=== PATIENT | female | born 1955 | race Caucasian/White ===

== ENCOUNTER → 2018-04-16 07:57 | Outpatient (CLI) | payer MEDICARE, SELFPAY ==
[2018-04-16 09:04] LABS: Absolute Lymphocyte Count 1.58 X10^3/ul (0.83-4.51); Absolute Neutrophil Count 2.4 X10^3/uL (2.0-7.7); Basophil# 0.03 X10^3/uL; Basophil% 0.6 % (0-1); Eosinophil# 0.16 X10^3/uL; Eosinophils% 3.4 % (0-5); Hematocrit 43.2 % (37-47); Hemoglobin 14.7 g/dl (12.0-15.0); Lymphocyte # 1.58 X10^3/ul (4.0); Lymphocyte % 33.3 % (19-41); Mean Corpuscular Hgb 32.5 pg (27.0-32.0); Mean Corpuscular Volume 95.6 fL (81-99); Mean Platelet Vol. 9.2 fl (6.2-12.0); Monocyte# 0.53 X10^3/uL; Monocyte% 11.2 % (0-10); Neutrophil # 2.43 X10^3/uL (2.7-7.7); Neutrophil % 51.3 % (47-70); Platelet Count 232 K/mm3 (150-450); RBC Distribution Width CV 11.9 % (11.6-14.6); RBC Distribution Width SD 40.6 fl (35.1-43.9); Red Blood Count 4.52 M/mm3 (4.2-5.4); White Blood Count 4.7 K/mm3 (4.4-11.0)
[2018-04-16 09:06] LABS: POSITIVE COUNT NO; POSITIVE DIFFERENTIAL NO; POSITIVE MORPHOLOGY NO
[2018-04-16 09:36] LABS: AST(SGOT) 18 U/L (15-37); Alanine Aminotransfer ALT/SGPT 37 U/L (13-56); Albumin, Serum 3.5 g/dL (3.2-5.0); Alkaline Phosphatase 61 U/L (45-117); Anion Gap 8 (5-15); BUN 11 mg/dL (7-18); BUN/Creat Ratio 17.2 RATIO (10-20); Calcium,Total 8.1 mg/dL (8.5-10.1); Chloride 98 mmol/L (98-107); Cholesterol 174 mg/dL (200); Creatinine, Serum 0.64 mg/dL (0.55-1.02); EST Glomerular Filtration Rate 99 mL/min (>60); Est Glom Filt Rate - Afr Amer 120 mL/min (>60); Globulin 3.5 g/dL (2.2-4.2); Glucose 103 mg/dL (74-106); High Density Lipoprotein 58 mg/dL; Potassium 3.9 mmol/L (3.5-5.1); Sodium Level 135 mmol/L (136-145); Thyroid Stim Hormone (TSH) 2.89 uIU/mL (0.358-3.74); Triglycerides 195 mg/dL; Very Low Density Lipoprotein 39 mg/dL (5-40)
--- OUTSIDE RECORDS SUMMARY | 2018-06-10 18:59 | XMS RPT_ITS ---
:1955 Author Organization OH[facility] Care Team Providers Name Role Phone Lb Stevens Attending Unavailable Lb Stevens Referring Unavailable Lb Stevens Primary Care Unavailable EMELY BARTHOLOMEW (ASUNCION) Attending Unavailable JUAN A RANDOLPH Referring Unavailable ALEXJUAN A BROWN Attending Unavailable JUAN A RANDOLPH Referring Unavailable SLY BREAUX Attending Unavailable SLY BREAUX Attending Unavailable SLY BREAUX Attending Unavailable SLY BREAUX Attending Unavailable PROBLEMS PROBLEMS DATE TYPE CONDITION / CODE ATTENDING STATUS SOURCE 04/25/2018 Active Localization-related NA Active [place] (focal) (partial) 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 The treating physician must determine appropriate target levels/dosing based on the specific clinical situation. Performed By: #### CARBAM, CARBFR, LEVET #### [facility] [address] [place], [place] [address] CARBAMAZEPINE, FREE Collected: 04/25/2018 Status: F Source: [place] 4:34 PM [facility] REPOSITORY TYPE CODE TESTS RESULT OUT OF REFERENCE UNITS RANGE LAB CARBFR 0.8-2.4 ug/mL 1.3 Carbamazepin e, Free Result Comment: Reference ranges and high/low indicator flags are provided as general guidelines only. The treating physician must determine appropriate target levels/dosing based on the specific clinic al situation. This test was developed and its performance characteristics determined by [facility] and [facility] [place] ([facility]). It has not been cleared or approved by the FDA. [facility] is regulated under CLIA as qualified to perform high-complexity testing. This test is used for clinical purposes. It should not be regarded as investigational or for research. Performed By: #### CARBAM, CARBFR, LEVET #### [facility] [address] [place], [place] [address] LEVETIRACETAM Collected: 04/25/2018 Status: F Source: [place] 4:34 [facility] REPOSITORY TYPE CODE TESTS RESULT OUT OF REFERENCE UNITS RANGE LAB LEVETI 12.0-46.0 ug/mL Levetiracetam 22.0 Result Comment: This test is not suitable for patients receiving treatment with the drug brivaracetam (Briviact). The drug causes an interference that may lead to falsely elevated levetiracetam results. Reference ranges and high/low indicator flags are provided as general guidelines only. The treating physician must determine appropriate target levels/dosing based on the specific clinical situation. This test was developed and its performance characteristics determined by [facility] Pathology and Laboratory [facility] [place] ([facility]). It has not been cleared or approved by the FDA. [facility] is regulated under CLIA as qualified to perform high-complexity testing. This test is used for clinical purposes. It should not be regarded as investigational or for research. Performed By: #### CARBAM, CARBFR, LEVET #### [facility] [address] [place], [place] [address] PROGRESS Observed: 04/25/2018 Status: COMPLETED Source: [place] 3:22 PM [facility] REPOSITORY HNO ID: [id number] Author: Juan A Randolph V Service: (none) Author Type: Physician Type: Progress Notes Filed: 05/02/2018 11:21 PM Note Text: [facility] [place] ? Patient Name: Cassy Gomez Date of : 1955 ? ? EPILEPSY CLINIC NOTE - RETURN VISIT DATE: 04/25/2018 [CBZ XR (100) 200 BID, LEV (750) 1500 BID JUJU ([place]): 08/03/17 [CBZ XR (100) 200 BID, LEV (750) 1500 BID, Clobazam 10 BID] IOV: 12/22/2010 [CBZ XR 800 BID, LEV 1500 mg BID] [id number] (Dr. Thornton) ? HPI Ms. Cassy Gomez returns for follow-up in relationship to her seizure disorder. She comes to this appointment accompanied by her Maximino. She is an established pt of Dr. Randolph who was last seen by Emely on 08/03/2017. She's now s/p 4.5cm R EILEEN on 07/17/2016. Interval Hx: She reports no known SZS; and no auras. No SZS have been observed by or other family members. She has not driven in many many years and is not interested in driving at the present time. Not driven since 1974. No ER visits, hospitalizations or changes in health or social status since the last visit. They bought a new house and live in [place] now ? Memory/Cognition: Stable no issues. She feels since she has been off medication, she is starting to do better. ? Sleep: Good from 10 pm to 6 am Mood: Stable. No issues KLP wean: 1 mg BID x 1 month Then 0.5/1 x 1 month Then 0.5 mg BID since mid september Decreased to 0.5 mg QHS on 01/26/18 Discontinued KLP at the end of feb/beginning of March. ? CURRENT AEDs 7:30 AM and 7:30 PM not missing doses CBZ XR (100) 200 BID LEV (750) 1500 BID ? ? OP NOTE 07/27/2016 (Dr. Cali) Right temporal lobectomy with resection of mesial temporal structures. ... undermined the temporalis muscle and performed right ?frontotemporal craniotomy flap and then opened the dura and I then resected the?right lateral temporal lobe, back to 4.5 cm posterior to the anterior aspect of the ?middle cranial fossa. The lateral horn was entered and the amygdala and the hippocampus was resected as well. These specimens were sent to Pathology. ? SURGICAL PATH (Dr. Adan) 1. 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 Amygdala, excision (B) - Gliosis - Focal perivascular chronic inflammation 3. Hippocampus, excision (C) - Focal neuronal loss and gliosis consistent with hippocampal sclerosis COMMENT: Histologic sections in part A show mild focal cortical architectural disorganization principally in a horizontal orientation. ? MOST RECENT TEST RESULTS LONG EEG January 19, 2017 A/S (Dr. Blank) ? 1 ? ?Intermittent Slow, Regional right temporal ? 2 ? ?Asymmetry, Increased Beta right Impression: This EEG shows findings consistent with the prior right temporal lobe resection. Also seen were sharp transients intermixed with the right frontotemporal breach rhythm, and with rhythmic right midtemporal theta activity on the left, of uncertain significance. No clear epileptiform discharges or EEG seizures were recorded. Post op MRI: 03/02/17: IMPRESSION: Interval postoperative changes of right anterior temporal lobectomy. Mild nonspecific, likely chronic microvascular ischemic white matter changes. ?Cerebellar volume loss. ? ? Current Outpatient Prescriptions on File Prior to Visit: clonazePAM (KLONOPIN) 1 mg tablet Take 0.5 tablets by mouth daily at bedtime for 30 days. Currently weaning. Take 1/2 tablet twice a day. levETIRAcetam (KEPPRA) 750 mg tablet Take 2 tablets by mouth twice daily. citalopram hydrobromide (CELEXA) 10 mg tablet Take 1 tablet by mouth every morning. ranitidine (ZANTAC) 150 mg tablet Take 150 mg by mouth twice daily. LINZESS 145 mcg cap Take 145 mcg by mouth once daily. L. gasseri-B. bifidum-B longum (Hit the Mark) 1.5 billion cell cap Take by mouth. carBAMazepine XR (TEGRETOL XR) 100 mg 12 hr tablet Take 2 tablets by mouth twice daily. cloBAZam (ONFI) 10 mg tab tablet Take by mouth. Follow printed instructions to gradually reduce the dose to one pill (10mg) twice a day senna (SENOKOT) 8.6 mg tab Take 1 tablet by mouth twice daily. (Patient not taking: Reported on 01/19/2017) lisinopril-hydrochlorothiazide (PRINZIDE,ZESTORETIC) 10-12.5 mg per tablet Take 1 tablet by mouth once daily. Nc-U6-yoe-dseu-tfx-ykkw-boron (CALTRATE 600+D PLUS MINERALS) 600 mg calcium- 800 unit-40 mg chew Take 1 tablet by mouth once daily. atorvastatin (LIPITOR) 20 mg tablet Take 20 mg by mouth once daily. alendronate (FOSAMAX) 70 mg tablet Take 70 mg by mouth once each week. Wednesday COMPOUNDED PRESCRIPTION VNS (2008) Currently turned off No current facility-administered medications on file prior to visit. ?The patient's side effects to the current medications are None Denies missing any doses but may not take them at the same time each day. ? ======= ? PRIOR ANTICONVULSANT HISTORY: LAST UPDATED January 19, 2017 PHT, PhB, VPA, ESX, GBP, LTG, TPM, TGB and benzos KLN (had been tried prior to her visit here in 1999) ? CBZ IR up to 500-500 in the past [asymptomatic hyponatremia on BMP around 2013 leading to small dose decrease by total of 200/d] CBZ XR up to 800 BID when first seen by me 12/2010 [SZ worsening w attempt to decrease dose from 400 BID to 200 BID under my care] LEV up to 1500 BID currently same dose when first seen 12/2010 (no AEs at 0709-3953 per previous records) Clobazam started 10/2011 at 10 BID increased to 15 BID around 10/2015 and 20 BID 03/2016 (concern of constipation); trial to decrease to 10 BID 01/2017. LOST to F/U 07/2012 to 10/2015 after sustained SZ freedom with addition of Clobazam. Onfi discontinued in 07/2017 because of cost and switched to KLP ? ? PGB tried between 6678-4023 ?started (outside [facility]) AEs when she reached 100-100 (?type of AEs) LCM tried between 0290-4320 ?started (outside [facility]) not tolerated (?type of AEs - no details) ? Component Latest Ref Rng AND Units 11/10/1999 11/15/1999 11/16/1999 11/17/1999 02/19/2000 09/09/2000 12/14/2000 05/30/2001 02/15/2003 02/16/2011 07/25/2015 11/27/2015 03/25/2016 01/19/2017 Carbamazepine 8.0 - 12.0 ug/mL 6.8 (A) 7.6 (A) 6.7 (A) 6.3 (A) 9.5 7.1 (A) 7.5 (A) 7.0 (A) 12.8 (A) 9.4 6.9 6.0 4.5 (L) 3.8 (L) DATE LAST TAKEN YESTERDAY TIME LAST DOSE 2027-4214 Carbamazepine, Free 1.6 - 2.4 ug/mL 1.8 3.0 (H) 1.2 (L) 1.1 (L) Clobazam 30 - 300 ng/mL 382 (H) 174 Desmethylclobazam 300 - 3,000 ng/mL 1,640 1,534 Levetiracetam 5.0 - 45.0 ug/mL 27.1 17.3 42.3 12.3 ? VNS implantation in 10/2008 OFF since 02/2010, switched off several months later as she was unable to tolerate effective settings stim- related AEs choking, unable to breathe, anxiety, indigestion per outside notes (up to 1.25mAmp; 250mcsec; 30Hz and including a trial of rapid cycling). Device was NOT removed at the time of the R EILEEN in 07/2016. ?? She reports reactions?to many AEDs, however, she is not sure which medication caused which reaction. ? Citalopram started 12/2010 at 10 QD; Increased to 20 QD in 02/2011 or more likely 10/2011; SELF D/C'd between 6599-6713 Restarted at 10 QD in 02/2016 ? ?Social History Marital status: Spouse name: Years of education: Number of children: Social History Main Topics Smoking status: Never Smoker Smokeless tobacco: Never Used Alcohol use: No PAST MEDICAL HISTORY Diagnosis Date - Depression - HTN (hypertension) - Localization-related (focal) (partial) epilepsy and epileptic syndromes with simple partial seizures, with intractable epilepsy - OA (osteoarthritis) - MAGDALENO (obstructive sleep apnea) - Port - wine birthmark right restorationist - Tinnitus of left ear ? REVIEW OF SYSTEMS: CONST:no weight change; no lightheadedness; no fevers, chills, or night sweats. Occasional headaches. EYES: no double vision; no blurred vision ENT: no change in hearing; no trouble swallowing NEURO: no focal weakness, no sensory loss CARD: no chest pain or palpitations, no leg edema RESP: no shortness of breath or cough : no urinary urgency, frequency, or hematuria GI: no abdominal pain or change in bowel habits MUSC: none PSYCH: no mood changes HEME: no bruising, bleeding, or swollen glands. All other organ systems are negative. ? Office Neurological Examination: BP 150/76 (BP Site: Left Arm, BP Position: Sitting, BP Cuff Size: Large Adult) Pulse 75 Ht 167.6 cm (5' 6) BMI 28.86 kg/m? On exam, no signs of toxicity. Appearance: slight facial acne Mental State: Alert, oriented, intact speech and knowledge Cranial Nerves: Normal eye movements, no nystagmus. Facial movements normal Motor: Normal movements Coordination: no tremors, normal Ddvxzq-Cpty-Oqiwnf, Rapid Alternating Motion Gait: Normal posture, Romberg negative, tandem normal ? ? IMPRESSION: 63 yr old female with pmh of Temporal lobe epilepsy of adult onset (at 24yo within 6 months after 1st?) RIGHT TLE or possibly bitemporal epilepsy based on interictal and ictal EEGs (VEEGs x3 here in 1999;?2010 and 2016). MRI/PET in 2010 and 2015-7 did show predominant involvement of the RIGHT (presumably nondominant?TL) and she's now SZ-free following a R 4.5cm EILEEN on 07/17/2016. ? 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 VNS implantation in 10/2008, OFF since 02/2010 (did NOT tolerate effective settings due to stim-related AEs); device remains in place post-EILEEN 2. RIGHT 4.5cm EILEEN (07/17/2016 Dr. Cali) ? PLAN: ?-Will repeat LEV and CBZ levels today -off KLP - Continue LEV 1500 BID unchanged for now. She is interested in reducing the number of keppra tablets she takes, this can be the next step if possible. - Start reducing CBZ XR 200 BID. Will give a taper schedule as follows Week 1-6: CBZ XR 100 mg (1 tablet) in the morning and 200 mg(2 tablets) in the evening Week 7-12: CBZ XR 100 mg (1 tablet) in the morning and 100 mg (1 tablet) in the evening Week 13-18: CBZ XR 100 mg (1 tablet) at bedtime only. Week: 19: Discontinue - Plan to aim for LEV monotherapy down the road ? Risks, benefits, side effects, and alternatives to use of LEV, CBZ and KLP were discussed with the patient and her family who agreed with the plan as outlined above. . The patient will be scheduled for a return visit in 1 year or sooner if problems arise. Gely Cosby MD Epilepsy Fellow PGY5 04/25/2018 4:10 PM ? [facility] STAFF: TEACHING PHYSICIAN NOTE OF PERSONAL INVOLVEMENT IN CARE I have reviewed the history and physical examination obtained and documented by the fellow and I personally participated in the dias components. I personally interviewed and examined the patient and updated the fellows's history and ROS as necessary. I have re-performed and re-documented and/or edited the HPI, EXAM, and ASSESSMENT and PLAN based on my personal assessment of the patient. My additions are in italics. See fellow's note for further details. Physician viha-xu-iscq time was 25 minutes with > 50% devoted to counseling or co-ordination of care. Juan A Randolph MD, MPH [facility], Dept. of Neurology Section of Adult Epilepsy, [address] [address] CNOV Observed: 04/25/2018 Status: COMPLETED Source: [place] 3:00 PM [facility] REPOSITORY Office Visit ([id number]) ISHANCASSY ZAVALA ([id number]) 1955 F Date Time Provider Department 04/25/18 3:00 PM JUAN A RANDOLPH V [id number] During your visit today, we recorded the following information about you: Pulse Blood pressure Height 75/minute 150/76 1.676 m Juan A Randolph MD 05/02/2018 11:21 PM Signed [facility] [place] ? Patient Name: Cassy Gomez Date of : 1955 ? ? EPILEPSY CLINIC NOTE - RETURN VISIT DATE: 04/25/2018 [CBZ XR (100) 200 BID, LEV (750) 1500 BID JUJU ([place]): 08/03/17 [CBZ XR (100) 200 BID, LEV (750) 1500 BID, Clobazam 10 BID] IOV: 12/22/2010 [CBZ XR 800 BID, LEV 1500 mg BID] [id number] (Dr. Thornton) ? HPI Ms. Cassy Gomez returns for follow-up in relationship to her seizure disorder. She comes to this appointment accompanied by her Maximino. She is an established pt of Dr. Randolph who was last seen by Emely on 08/03/2017. She's now s/p 4.5cm R EILEEN on 07/17/2016. Interval Hx: She reports no known SZS; and no auras. No SZS have been observed by or other family members. She has not driven in many many years and is not interested in driving at the present time. Not driven since 1974. No ER visits, hospitalizations or changes in health or social status since the last visit. They bought a new house and live in [place] now ? Memory/Cognition: Stable no issues. She feels since she has been off medication, she is starting to do better. ? Sleep: Good from 10 pm to 6 am Mood: Stable. No issues KLP wean: 1 mg BID x 1 month Then 0.5/1 x 1 month Then 0.5 mg BID since september Decreased to 0.5 mg QHS on 01/26/18 Discontinued KLP at the end of feb/beginning of March. ? CURRENT AEDs 7:30 AM and 7:30 PM not missing doses CBZ XR (100) 200 BID LEV (750) 1500 BID ? ? OP NOTE 07/27/2016 (Dr. Cali) Right temporal lobectomy with resection of mesial temporal structures. ... undermined the temporalis muscle and performed right ?frontotemporal craniotomy flap and then opened the dura and I then resected the?right lateral temporal lobe, back to 4.5 cm posterior to the anterior aspect of the ?middle cranial fossa. The lateral horn was entered and the amygdala and the hippocampus was resected as well. These specimens were sent to Pathology. ? SURGICAL PATH (Dr. Adan) 1. 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 Amygdala, excision (B) - Gliosis - Focal perivascular chronic inflammation 3. Hippocampus, excision (C) - Focal neuronal loss and gliosis consistent with hippocampal sclerosis COMMENT: Histologic sections in part A show mild focal cortical architectural disorganization principally in a horizontal orientation. ? MOST RECENT TEST RESULTS LONG EEG January 19, 2017 A/S (Dr. Blank) ? 1 ? ?Intermittent Slow, Regional right temporal ? 2 ? ?Asymmetry, Increased Beta right Impression: This EEG shows findings consistent with the prior right temporal lobe resection. Also seen were sharp transients intermixed with the right frontotemporal breach rhythm, and with rhythmic right midtemporal theta activity on the left, of uncertain significance. No clear epileptiform discharges or EEG seizures were recorded. Post op MRI: 03/02/17: IMPRESSION: Interval postoperative changes of right anterior temporal lobectomy. Mild nonspecific, likely chronic microvascular ischemic white matter changes. ?Cerebellar volume loss. ? ? Current Outpatient Prescriptions on File Prior to Visit: clonazePAM (KLONOPIN) 1 mg tablet Take 0.5 tablets by mouth daily at bedtime for 30 days. Currently weaning. Take 1/2 tablet twice a day. levETIRAcetam (KEPPRA) 750 mg tablet Take 2 tablets by mouth twice daily. citalopram hydrobromide (CELEXA) 10 mg tablet Take 1 tablet by mouth every morning. ranitidine (ZANTAC) 150 mg tablet Take 150 mg by mouth twice daily. LINZESS 145 mcg cap Take 145 mcg by mouth once daily. L. gasseri-B. bifidum-B longum (Hit the Mark) 1.5 billion cell cap Take by mouth. carBAMazepine XR (TEGRETOL XR) 100 mg 12 hr tablet Take 2 tablets by mouth twice daily. cloBAZam (ONFI) 10 mg tab tablet Take by mouth. Follow printed instructions to gradually reduce the dose to one pill (10mg) twice a day senna (SENOKOT) 8.6 mg tab Take 1 tablet by mouth twice daily. (Patient not taking: Reported on 01/19/2017) lisinopril-hydrochlorothiazide (PRINZIDE,ZESTORETIC) 10-12.5 mg per tablet Take 1 tablet by mouth once daily. Jt-V1-qlp-xamh-ujp-dhkh-boron (CALTRATE 600+D PLUS MINERALS) 600 mg calcium- 800 unit-40 mg chew Take 1 tablet by mouth once daily. atorvastatin (LIPITOR) 20 mg tablet Take 20 mg by mouth once daily. alendronate (FOSAMAX) 70 mg tablet Take 70 mg by mouth once each week. Wednesday COMPOUNDED PRESCRIPTION VNS (2008) Currently turned off No current facility-administered medications on file prior to visit. ?The patient's side effects to the current medications are None Denies missing any doses but may not take them at the same time each day. ? - === ? PRIOR ANTICONVULSANT HISTORY: LAST UPDATED January 19, 2017 PHT, PhB, VPA, ESX, GBP, LTG, TPM, TGB and benzos KLN (had been tried prior to her visit here in 1999) ? CBZ IR up to 500-500 in the past [asymptomatic hyponatremia on BMP around 2013 leading to small dose decrease by total of 200/d] CBZ XR up to 800 BID when first seen by me 12/2010 [SZ worsening w attempt to decrease dose from 400 BID to 200 BID under my care] LEV up to 1500 BID currently same dose when first seen 12/2010 (no AEs at 1896-6894 per previous records) Clobazam started 10/2011 at 10 BID increased to 15 BID around 10/2015 and 20 BID 03/2016 (concern of constipation); trial to decrease to 10 BID 01/2017. LOST to F/U 07/2012 to 10/2015 after sustained SZ freedom with addition of Clobazam. Onfi discontinued in 07/2017 because of cost and switched to KLP ? ? PGB tried between 1779-7442 ?started (outside [facility]) AEs when she reached 100-100 (?type of AEs) LCM tried between 2032-7209 ?started (outside [facility]) not tolerated (?type of AEs - no details) ? Component Latest Ref Rng AND Units 11/10/1999 11/15/1999 11/16/1999 11/17/1999 02/19/2000 09/09/2000 12/14/2000 05/30/2001 02/15/2003 02/16/2011 07/25/2015 11/27/2015 03/25/2016 01/19/2017 Carbamazepine 8.0 - 12.0 ug/mL 6.8 (A) 7.6 (A) 6.7 (A) 6.3 (A) 9.5 7.1 (A) 7.5 (A) 7.0 (A) 12.8 (A) 9.4 6.9 6.0 4.5 (L) 3.8 (L) DATE LAST TAKEN YESTERDAY TIME LAST DOSE 5538-7922 Carbamazepine, Free 1.6 - 2.4 ug/mL 1.8 3.0 (H) 1.2 (L) 1.1 (L) Clobazam 30 - 300 ng/mL 382 (H) 174 Desmethylclobazam 300 - 3,000 ng/mL 1,640 1,534 Levetiracetam 5.0 - 45.0 ug/mL 27.1 17.3 42.3 12.3 ? VNS implantation in 10/2008 OFF since 02/2010, switched off several months later as she was unable to tolerate effective settings stim-related AEs choking, unable to breathe, anxiety, indigestion per outside notes (up to 1.25mAmp; 250mcsec; 30Hz and including a trial of rapid cycling). Device was NOT removed at the time of the R EILEEN in 07/2016. ?? She reports reactions?to many AEDs, however, she is not sure which medication caused which reaction. ? Citalopram started 12/2010 at 10 QD; Increased to 20 QD in 02/2011 or more likely 10/2011; SELF D/C'd between 8978-2031 Restarted at 10 QD in 02/2016 ? - ======== ?Social History Marital status: Spouse name: Years of education: Number of children: Social History Main Topics Smoking status: Never Smoker Smokeless tobacco: Never Used Alcohol use: No PAST MEDICAL HISTORY Diagnosis Date - Depression - HTN (hypertension) - Localization-related (focal) (partial) epilepsy and epileptic syndromes with simple partial seizures, with intractable epilepsy - OA (osteoarthritis) - MAGDALENO (obstructive sleep apnea) - Port - wine birthmark right restorationist - Tinnitus of left ear ? REVIEW OF SYSTEMS: CONST:no weight change; no lightheadedness; no fevers, chills, or night sweats. Occasional headaches. EYES: no double vision; no blurred vision ENT: no change in hearing; no trouble swallowing NEURO: no focal weakness, no sensory loss CARD: no chest pain or palpitations, no leg edema RESP: no shortness of breath or cough : no urinary urgency, frequency, or hematuria GI: no abdominal pain or change in bowel habits MUSC: none PSYCH: no mood changes HEME: no bruising, bleeding, or swollen glands. All other organ systems are negative. ? Office Neurological Examination: BP 150/76 (BP Site: Left Arm, BP Position: Sitting, BP Cuff Size: Large Adult) Pulse 75 Ht 167.6 cm (5' 6) BMI 28.86 kg/m? On exam, no signs of toxicity. Appearance: slight facial acne Mental State: Alert, oriented, intact speech and knowledge Cranial Nerves: Normal eye movements, no nystagmus. Facial movements normal Motor: Normal movements Coordination: no tremors, normal Ucsgzh-Bade-Prdoru, Rapid Alternating Motion Gait: Normal posture, Romberg negative, tandem normal ? ? IMPRESSION: 63 yr old female with pmh of Temporal lobe epilepsy of adult onset (at 24yo within 6 months after 1st?) RIGHT TLE or possibly bitemporal epilepsy based on interictal and ictal EEGs (VEEGs x3 here in 1999;?2010 and 2016). MRI/PET in 2010 and 2015-7 did show predominant involvement of the RIGHT (presumably nondominant?TL) and she's now SZ-free following a R 4.5cm EILEEN on 07/17/2016. ? 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 VNS implantation in 10/2008, OFF since 02/2010 (did NOT tolerate effective settings due to stim-related AEs); device remains in place post-EILEEN 2. RIGHT 4.5cm EILEEN (07/17/2016 Dr. Cali) ? PLAN: ?-Will repeat LEV and CBZ levels today -off KLP - Continue LEV 1500 BID unchanged for now. She is interested in reducing the number of keppra tablets she takes, this can be the next step if possible. - Start reducing CBZ XR 200 BID. Will give a taper schedule as follows Week 1-6: CBZ XR 100 mg (1 tablet) in the morning and 200 mg(2 tablets) in the evening Week 7-12: CBZ XR 100 mg (1 tablet) in the morning and 100 mg (1 tablet) in the evening Week 13-18: CBZ XR 100 mg (1 tablet) at bedtime only. Week: 19: Discontinue - Plan to aim for LEV monotherapy down the road ? Risks, benefits, side effects, and alternatives to use of LEV, CBZ and KLP were discussed with the patient and her family who agreed with the plan as outlined above. . The patient will be scheduled for a return visit in 1 year or sooner if problems arise. Gely Cosby MD Epilepsy Fellow PGY5 04/25/2018 4:10 PM ? [facility] STAFF: TEACHING PHYSICIAN NOTE OF PERSONAL INVOLVEMENT IN CARE I have reviewed the history and physical examination obtained and documented by the fellow and I personally participated in the dias components. I personally interviewed and examined the patient and updated the fellows's history and ROS as necessary. I have re-performed and re-documented and/or edited the HPI, EXAM, and ASSESSMENT and PLAN based on my personal assessment of the patient. My additions are in italics. See fellow's note for further details. Physician zhje-xz-jjjy time was 25 minutes with > 50% devoted to counseling or co-ordination of care. Juan A Randolph MD, MPH [facility], Dept. of Neurology Section of [place] Epilepsy, [place] [address] Gely Cosby MD 04/25/2018 4:17 PM Signed Start reducing Tegretol XR 200 BID. Will give a taper schedule as follows: Week 1-6 (1.5 months): CBZ XR 100 mg (1 tablet) in the morning and 200 mg(2 tablets) in the evening Week 7-12(1.5 months to 3 months): CBZ XR 100 mg (1 tablet) in the morning and 100 mg (1 tablet) in the evening Week 13-18 (3 months to 4.5 months): CBZ XR 100 mg (1 tablet) at bedtime only. 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] Mood disorder (HCC) [F39] History of febrile seizure [Z87.898] FH: epilepsy [Z82.0] S/P lobectomy of brain [Z90.89] MAGDALENO on CPAP [G47.33, Z99.89] Order(s):LEVETIRACETAM [SQLEVET] Order #: [id number] FUTURE CARBAM/TEGRETOL F [SQCARBFR] Order #: [id number] FUTURE CARBAMAZEPI/TEGRETOL [SQCARBAM] Order #: [id number] FUTURE levETIRAcetam (KEPPRA) 750 mg tabletTake 2 tablets by mouth twice daily.Disp: 360 tabletRfl: 11 carBAMazepine XR (TEGRETOL XR) 100 mg 12 hr tabletTake 2 tablets by mouth twice daily.Disp: 360 tabletRfl: 3 Prescriptions as of 04/25/2018 Sig: ALENDRONATE 70 MG TABLET Take 70 mg by mouth once each* ATORVASTATIN 20 MG TABLET Take 20 mg by mouth once mirta* CA 600 MG-D3 800 UNIT-MAGNES * Take 1 tablet by mouth once d* CARBAMAZEPINE ER 100 MG TABLE* Take 2 tablets by mouth twice* CITALOPRAM 10 MG TABLET Take 1 tablet by mouth every * LACTOBACILLS GASSERI-BIFIDOBA* Take by mouth. LEVETIRACETAM 750 MG TABLET Take 2 tablets by mouth twice* LISINOPRIL 10 MG-HYDROCHLOROT* Take 1 tablet by mouth once d* RANITIDINE 150 MG TABLET Take 150 mg by mouth twice da* CLOBAZAM 10 MG TABLET Take by mouth. 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] INVALID FOR* MAGDALENO on CPAP [G47.33, Z99.89] INVALID FOR* 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 Will give a taper schedule as follows: Week 1-6 (1.5 months): CBZ XR 100 mg (1 tablet) in the morning and 200 mg(2 tablets) in the evening Week 7-12(1.5 months to 3 months): CBZ XR 100 mg (1 tablet) in the morning and 100 mg (1 tablet) in the evening Week 13-18 (3 months to 4.5 months): CBZ XR 100 mg (1 tablet) at bedtime only. Week: 19: Discontinue -Call for an update in 6 months -Follow up in 1 year Prescriptions ordered this encounter Disp Refills Start End LEVETIRACETAM 750 MG TABLET 360 * 11 04/25/2018 Route: ORAL Sig: Take 2 tablets by mouth twice daily. CARBAMAZEPINE ER 100 MG TABLET,EXTEN* 360 * 3 04/25/2018 Route: ORAL Sig: Take 2 tablets by mouth twice daily. Medications Discontinued During This Encounter levETIRAcetam (KEPPRA) 750 mg tablet 360 * 2 09/22/2017 04/25/2018 Route: ORAL Sig: Take 2 tablets by mouth twice daily. Disc: Reason for discontinue is not on file. carBAMazepine XR (TEGRETOL XR) 100 m* 360 * 3 08/03/2017 04/25/2018 Route: ORAL Sig: Take 2 tablets by mouth twice daily. Disc: Reason for discontinue is not on file. Disposition: Return in about 1 year (around 04/25/2019). Follow-up and Disposition History Recorded Encounter Status:Closed by JUAN A RANDOLPH MD, V on 05/02/18 CBC W/DIFF, AUTOMATED Collected: 04/16/2018 Status: F Source: [place] 8:15 AM [facility] REPOSITORY TYPE CODE TESTS RESULT OUT OF RANGE REFERENCE UNITS LAB L100.1000 4.4-11.0 K/mm3 Normal WBC 4.7 LAB L100.1200 4.2-5.4 M/mm3 Normal RBC 4.52 LAB L100.1300 12.0-15.0 g/dl Normal HGB 14.7 LAB L100.1400 37-47 % Normal HCT 43.2 LAB L100.1500 81-99 fL Normal MCV 95.6 LAB L100.1600 27.0-32.0 pg High MCH 32.5 LAB L100.1700 32-36 g/gl Normal MCHC 34.0 LAB L100.1810 11.6-14.6 % Normal RDW CV 11.9 LAB L100.1820 35.1-43.9 fl Normal RDW SD 40.6 LAB L100.1900 150-450 K/mm3 Normal PLT 232 LAB L100.2000 6.2-12.0 fl Normal MPV 9.2 LAB L100.2100 47-70 % Normal NEUT% 51.3 LAB L100.2200 19-41 % Normal LY% 33.3 LAB L100.2300 0-10 % High MONO% 11.2 LAB L100.2400 0-5 % Normal EO% 3.4 LAB L100.2500 0-1 % Normal BASO% 0.6 LAB L100.2550 0.0-0.9 % Normal IM GRAN % 0.200 Result Comment: IG% - Immature Granulocytes (promyelocytes, myelocytes and metamyelocytes) > 1% indicates that a LEFT SHIFT is Present. LAB L100.2620 2.0-7.7 X10 3/uL Normal Absolute Neut 2.4 LAB L100.2720 0.83-4.51 X10 3/ul Normal Absolute Lymph 1.58 Performed By: #### L100.0100 #### [facility] [address] [place], [place], [address] COMPREHENSIVE METABOLIC Collected: 04/16/2018 Status: F Source: [place] 8:15 AM [facility] REPOSITORY TYPE CODE TESTS RESULT OUT OF RANGE REFERENCE UNITS LAB L501.0100 74-106 mg/dL Normal GLU 103 Result Comment: Fasting Glucose result from 100 to 125 mg/dL suggests IMPAIRED HOMEOSTASIS per A.D.A. criteria. Please note revised GLUCOSE reference range effective 2017. LAB L501.1000 7-18 mg/dL Normal BUN 11 LAB L501.1100 0.55-1.02 mg/dL Normal CREAT,SERUM 0.64 Result Comment: The validity of the calculated GFR AND GFRAA in patients over 70 years has not been determined. Clinical correlation is essential. LAB L501.1110 >60 mL/min Normal EST GFR 99 Result Comment: Non- GFR Calc LAB L501.1115 >60 mL/min Normal EST GFR - AA 120 Result Comment: GFR Calc LAB L501.1300 10-20 RATIO Normal BUN/CRE 17.2 LAB L501.1500 6.4-8.2 g/dL T Normal PROT 7.0 LAB L501.1800 3.2-5.0 g/dL Normal ALB 3.5 LAB L501.1950 2.2-4.2 g/dL Normal GLOB 3.5 LAB L501.2000 0.9-2.4 RATIO Normal A/G 1.0 LAB L501.2200 8.5-10.1 mg/dL Low CA 8.1 LAB L501.4100 15-37 U/L Normal AST 18 LAB L501.4305 45-117 U/L Normal ALK P 61 LAB L501.4405 13-56 U/L Normal ALT 37 LAB L501.4600 0.20-1.00 mg/dL T Normal BILI 0.30 LAB L501.5300 136-145 mmol/L Low NA 135 LAB L501.5600 3.5-5.1 mmol/L K Normal 3.9 LAB L501.5900 98-107 mmol/L CL Normal 98 LAB L501.6100 21.0-32.0 mmol/L Normal CO2 29.0 LAB L501.6200 5-15 Normal GAP 8 Performed By: #### L500.4050, L500.4100, L501.9520 #### [facility] [address] [place], [address] LIPID PROFILE Collected: 04/16/2018 Status: F Source: [place] 8:15 AM [facility] REPOSITORY TYPE CODE TESTS RESULT OUT OF RANGE REFERENCE UNITS LAB L501.4900 200 mg/dL Normal CHOL 174 Result Comment: <200 mg/dL Desirable 200-240 mg/dL Borderline >240 mg/dL High Risk LAB L501.5000 mg/dL Normal TRIG 195 Result Comment: The drugs N-Acetylcysteine and Metamizole may falsely depress this assay. Serum Triglycerides Reference Interval Normal <150 mg/dL Borderline high 150 - 199 mg/dL High 200 - 499 mg/dL Very High > or = 500 mg/dL LAB L501.6400 mg/dL Normal HDL 58 Result Comment: The drugs N-Acetylcysteine and Metamizole may falsely depress this assay. Reference Range HDL <40 mg/dL Low HDL Cholesterol HDL >or= 60 mg/dL High HDL Cholesterol LAB L501.6500 0-130 mg/dL Normal LDL 77 LAB L501.6600 5-40 mg/dL Normal VLDL 39 Performed By: #### L500.4050, L500.4100, L501.9520 #### [facility] [address] [place], [address] THYROID STIM HORMONE Collected: 04/16/2018 Status: F Source: JESSICA (TSH) 8:15 AM [facility] REPOSITORY TYPE CODE TESTS RESULT OUT OF RANGE REFERENCE UNITS LAB L501.9520 0.358-3.74 uIU/mL Normal TSH 2.89 Performed By: #### L500.4050, L500.4100, L501.9520 #### [facility] [address] [place], [address] DICKSON DIAG DIRECT DIG Observed: 04/01/2018 Status: F Source: [facility] 11:00 AM HOSPITAL REPOSITORY [facility] [address] [address] Name: CASSY GOMEZ Phys: SLY BREAUX III, M.D. : [birth year] Age: 63 Sex: F Acct: [id number] Loc: RAD MAMM Exam Date: 04/01/18 Status: REG CLI Radiology No.: [id number] Unit Number: [id number] Exam # Type/Exam [id number] MAMMO / DICKSON DIAG DIRECT DIG IMAGE UNI #[id number] - DICKSON DIAG DIRECT DIG IMAGE UNI UNILATERAL RIGHT DIGITAL DIAGNOSTIC MAMMOGRAM: 04/01/2018 CLINICAL: Diagnostic Wotqajrom-Ikdwxnxxef-GP 5 mm Mass 6 o'clock Posterior Depth. Comparison is made to exams dated: 09/29/2017 ultrasound and 09/22/2017 mammogram - [facility]. There are scattered fibroglandular elements in right breast. There is a 5 mm focal asymmetry in the right breast at 7 o'clock posterior depth. This is less prominent and decreased in size. No other significant masses or calcifications are seen in the breast. IMPRESSION: BENIGN The 5 mm focal asymmetry in the right breast at 7 o'clock posterior depth appears benign. There is no mammographic evidence of malignancy. Return to annual mammogram screening schedule is recommended.(09/22/2018) The patient was notified of the results. Moises Watson M.D. [facility]:04/01/2018 11:07:42 Meat Trimmer(s): RT Татьяна(R)(M), [facility] BI-RADS: 2 Benign MAMMO REPORT SIGNATURE ON FILE Reported By: MOISES WATSON M.D. << Signature on File>> Reported By: MOISES WATSON M.D. Signed By: MOISES WATSON M.D. Tests performed at: [address] [address] CNPN Observed: 01/26/2018 Status: COMPLETED Source: [place] 12:00 AM [facility] REPOSITORY Telephone (NE50MN) CASSY GOMEZ ([id number]) 1955 F Date Time Provider Department 01/26/18 JUAN A RANDOLPH V NE50MN During your visit today, we recorded the following information about you: Jeaneth Tyler Adm Asst 01/26/2018 10:30 AM Signed Medication Concern Person Calling Cassy Gomez Name of medication Klonopin Concern with medication Patient is in process of weaning off medication but needs to know if she needs to keep taking it. If so, then she will need a refill. Patient of Dr. Harpreet Su RN, RN 01/26/2018 4:17 PM Signed See [facility] 07/16 and telephone encounters dated 08/23, 09/27 and 11/15 Spoke With Cassy, She states she is doing well with no seizures. She requests to continue to wean off this medication if possible. If she is to continue until next appointment on 04/[address] DANIEL, she will need Rx refills. Forwarded to Isa Garay for review and recommendation. MADONNA Ni APRN.ADY 01/27/2018 1:07 PM Signed She can continue to decrease to 0.5 mg qHs. Will send in new prescription for I month supply. She can call us back in a few weeks with an update to how she is doing. The following approved medication requests have been transmitted electronically. Signed Prescriptions Disp Refills clonazePAM (KLONOPIN) 1 mg tablet 15 tablet 0 Sig: Take 0.5 tablets by mouth daily at bedtime for 30 days. Currently weaning. Take 1/2 tablet twice a day. DOLORES Class: C-IV BALJIT: No Authorizing Provider: MELODY GARAY (ADY) Melody Garay APRN.ADY Su RN, RN 01/27/2018 1:37 PM Signed Called Cassy, advised per Jacqueline. She verbalized understanding and agrees with plan. 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 Currently weaning. Take 1/2 tablet twice a day.Disp: 15 tabletRfl: 0 Prescriptions as of 01/26/2018 Sig: CLONAZEPAM 1 MG TABLET Take 0.5 tablets by mouth kali* LEVETIRACETAM 750 MG TABLET Take 2 tablets by mouth twice* CITALOPRAM 10 MG TABLET Take 1 tablet by mouth every * RANITIDINE 150 MG TABLET Take 150 mg by mouth twice da* LINZESS 145 MCG CAPSULE Take 145 mcg by mouth once da* LACTOBACILLS GASSERI-BIFIDOBA* Take by mouth. CARBAMAZEPINE ER 100 MG TABLE* Take 2 tablets by mouth twice* CLOBAZAM 10 MG TABLET Take by mouth. 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] INVALID FOR* MAGDALENO on CPAP [G47.33, Z99.89] INVALID FOR* 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 Take 1/2 tablet twice a day. CLONAZEPAM 1 MG TABLET 15 t* 0 01/27/2018 02/26/2018 Class: Call Rx Route: ORAL Sig: Take 0.5 tablets by mouth daily at bedtime for 30 days. Currently weaning. Take 1/2 tablet twice a day. Medications Discontinued During This Encounter clonazePAM (KLONOPIN) 1 mg tablet 30 t* 0 01/13/2018 01/27/2018 Class: Call Rx Sig: Currently weaning. Take 1/2 tablet twice a day. Disc: Reason for discontinue is not on file. clonazePAM (KLONOPIN) 1 mg tablet 30 t* 0 01/27/2018 01/27/2018 Class: Call Rx Sig: Currently weaning. Take 1/2 tablet twice a day. Disc: Reason for discontinue is not on file. Encounter Status:Closed by MELODY GARAY CNP on 01/27/18 US BREAST LIMITED Observed: 09/29/2017 Status: F Source: [place] 11:15 AM [facility] REPOSITORY [place] [address] Name: CASSY GOMEZ Phys: SLY BREAUX III, M.D. : [birth year] Age: 62 Sex: F Acct: [id number] Loc: RAD US Exam Date: 09/29/17 Status: REG CLI Radiology No.: [id number] Unit Number: [id number] Exam # Type/Exam [id number] US / US BREAST LIMITED RT #[id number] - US BREAST LIMITED LIMITED ULTRASOUND OF RIGHT BREAST: 09/29/2017 CLINICAL: Rt breast density BCC. Comparison is made to exam dated: 09/22/2017 mammogram - [facility]. Real-time ultrasound of the right breast 6 o'clock region was performed on the areas of interest. Medina scale images of the real-time examination were reviewed. No abnormalities were seen sonographically in the right breast. IMPRESSION: PROBABLY BENIGN There is no abnormality seen in the right breast to correspond with the mammographic density at 6 o'clock in the posterior depth. A follow-up right mammogram in 6 months is recommended to demonstrate stability.(03/31/2018) The patient has been or will be contacted. Siva castanon/pengaudencio:09/30/2017 09:29:28 copy to: Lb Stevens MD, [facility] ph: [phone], fax: [phone] Meat Trimmer(s): Maru Vann, [facility] letter sent: BIRADS 3 - 6 mo Mammo Follow-up Ultrasound BI-RADS: 3 Probably benign REPORT SIGNATURE ON FILE Reported By: SIVA NICOLE D.O. << Signature on File>> Reported By: SIVA NICOLE D.O. Signed By: SIVA NICOLE D.O. Tests performed at: [place] [address] SCREEN DIGITAL Observed: 09/22/2017 Status: F Source: [place] BREAST JIMENA 10:40 AM [facility] REPOSITORY [place] [address] Name: CASSY GOMEZ Phys: SLY BREAUX III, M.D. : [birth year] Age: 62 Sex: F Acct: [id number] Loc: RAD MAMM Exam Date: 09/22/17 Status: REG CLI Radiology No.: [id number] Unit Number: [id number] Exam # Type/Exam [id number] MAMMO / SCREEN DIGITAL BREAST JIMENA #[id number] - SCREEN DIGITAL BREAST JIMENA BILATERAL DIGITAL SCREENING MAMMOGRAM 3D/2D WITH CAD: 09/22/2017 CLINICAL: Annual Screening. Comparison is made to exam dated: 09/21/2016 mammogram - [facility]. There are scattered fibroglandular elements in both breasts. Current study was also evaluated with a Computer Aided Detection (CAD) system. There is a 5 mm oval mass with a circumscribed margin in the right breast at 6 o'clock posterior depth. This is seen in additional views. No other significant masses, calcifications, or other findings are seen in either breast. IMPRESSION: INCOMPLETE: NEEDS ADDITIONAL IMAGING EVALUATION The 5 mm oval mass in the right breast at 6 o'clock posterior depth appears indeterminate. An ultrasound is recommended. The patient has been or will be contacted. Lito Adam M.D. ab/:09/22/2017 13:30:56 Meat Trimmer(s): RT Jake(Chandni)(M), [facility] letter sent: BIRADS 0 - Abnormal BI-RADS: 0 REPORT SIGNATURE ON FILE Reported By: LITO ADAM M.D. << Signature on File>> Reported By: LITO ADAM M.D. Signed By: LITO ADAM M.D. Tests performed at: [address] [address] CBC Collected: 09/22/2017 Status: F Source: [facility] 9:19 AM HOSPITAL REPOSITORY TYPE CODE TESTS RESULT OUT OF RANGE REFERENCE UNITS LAB L200.0100 4.5-10.0 x10(3) Normal WBC 4.6 LAB L200.0200 3.30-5.00 x10(6) Normal RBC 4.54 LAB L200.0210 12.0-16.0 g/dL Normal HGB 15.0 LAB L200.0220 36.0-48.0 % Normal HCT 43.8 LAB L200.0230 80.0-99.0 fl Normal MCV 96.4 LAB L200.0240 28.5-32.9 pg High MCH 33.0 LAB L200.0250 33.0-36.0 g/dL Normal MCHC 34.2 LAB L200.0260 12.5-15.7 % Low RDW 12.1 LAB L200.0270 150-450 X10(3) Normal PLT 199 LAB L200.0290 7.5-9.5 fl Normal MPV 8.0 LAB L200.0300 45.0-73.0 % Normal NEUT% 56.5 LAB L200.0310 16.0-48.0 % Normal LYMPH% 34.3 LAB L200.0320 4.3-11.2 % Normal MONO% 7.3 LAB L200.0330 0.5-4.9 % Normal EOS% 1.2 LAB L200.0340 0.0-1.0 % Normal BASO% 0.7 LAB L200.0350 1.40-6.50 x10(3) Normal NEUT# 2.60 LAB L200.0360 1.00-3.50 x10(3) Normal LYMPH# 1.60 LAB L200.0370 0.30-0.80 x10(3) Normal MONO# 0.30 LAB L200.0380 0.00-0.54 x10(3) Normal EOS# 0.10 LAB L200.0390 0.00-0.10 x10(3) Normal BASO# 0.00 Performed By: #### L200.0010 #### [facility] [address] [place] [id number] CMP Collected: 09/22/2017 Status: F Source: [facility] 9:19 AM HOSPITAL REPOSITORY TYPE CODE TESTS RESULT OUT OF RANGE REFERENCE UNITS LAB L100.0060 82-115 mg/dL GLUCOSE Normal 97 LAB L100.0110 8-23 mg/dL BUN Normal 13 LAB L100.0131 0.50-0.90 mg/dL Normal CREATININE 0.68 LAB L100.0140 8.8-10.2 mg/dL CALCIUM Normal 9.4 LAB L100.0150 135-145 mmol/L SODIUM Normal 141 LAB L100.0160 3.5-5.0 mmol/L Normal POTASSIUM 3.8 LAB L100.0170 98-107 mmol/L CHLORIDE Normal 99 LAB L100.0180 22-29 mmol/L TCO2 Normal 28 LAB L100.0185 15-22 mmol/L ANION Normal GAP 17.8 LAB L100.0200 6.4-8.3 g/dL TOTAL Normal PROTEIN 7.4 LAB L100.0210 3.5-5.2 g/dL ALBUMIN Normal 4.5 LAB L100.0220 0.2-1.2 mg/dL TOTAL Normal BILIRUBIN 0.4 LAB L100.0240 5-32 U/L AST Normal 17 LAB L100.0250 5-33 U/L ALT Normal 23 LAB L100.0260 35-105 U/L ALK. Normal PHOS 65 LAB L100.0262 1.5-4.5 g/dL Normal GLOBULIN,CALC 2.9 LAB L100.0264 1.1-2.5 A:G Normal RATIO 1.55 LAB L100.0274 eGFR Normal nonAFR Karla > 60 ml/Min/1.73m 2 LAB L100.0275 eGFR if Normal AFR KARLA > 60 ml/min/1.73m 2 Result Comment: eGFR >= 60 Indicates normal kidney function. * eGFR IS AN ESTIMATE * (AFR KARLA = ) (non-AFR AM = NON-) MDRD calculation used in the eGFR should not be used to dose medications. For further limitations of the eGFR please refer to the Physician Website or the National Kidney Disease Education Program website (www.nkdep.nih.gov). Performed By: #### L100.0005, L100.0040 #### [facility] [address] [place] [address] LIPID PANEL Collected: 09/22/2017 Status: F Source: [facility] 9:19 AM HOSPITAL REPOSITORY TYPE CODE TESTS RESULT OUT OF REFERENCE UNITS RANGE LAB L100.0280 130-200 mg/dL CHOLESTEROL Normal 170 LAB L100.0290 mg/dL TRIGLYCERIDE Normal 87 Result Comment: TRIG: DESIRABLE: <150 mg/dL LAB L100.0300 mg/dL Normal HDL 70 Result Comment: National Cholesterol Education Program (NCEP) guidelines: <40 mg/dL: Low HDL-Cholesterol(major risk factor for CHD) > or = 60 mg/dL: High HDL-Cholesterol(negative risk factor for CHD) HDL-cholesterol is affected by a number of factors, e.g., smoking, exercise, hormones, sex, and age. 4th Generation Test; Results may be approximately 7% lower than previous values. LAB L100.0310 6-40 mg/dL Normal VLDL 17 LAB L100.0320 mg/dL Normal LDL 83 Result Comment: LDL: OPTIMAL FOR PEOPLE AT VERY HIGH RISK <70 OPTIMAL <100 NEAR OPTIMAL 100-129 BORDERLINE HIGH 130-159 HIGH 160-189 VERY HIGH >=190 Source: 2008 NCEP ATP III, ADA Guidelines Reviewed: August, LAB L100.0330 Normal LDL/HDL RATIO 1.2 Performed By: #### L100.0005, L100.0040 #### [facility] - [facility] [address] [place] [id number] HEP C VIRUS AB Collected: 09/22/2017 Status: F Source: [facility] 9:19 AM HOSPITAL REPOSITORY TYPE CODE TESTS RESULT OUT OF RANGE REFERENCE UNITS LAB L801.3865 0.0-0.9 Normal HEP C <0.1 Virus Ab Result Comment: INFCE Result Units: s/co ratio Negative: < 0.8 Indeterminate: 0.8 - 0.9 Positive: > 0.9 The CDC recommends that a positive HCV antibody result be followed up with a HCV Nucleic Acid Amplification test (537700). Performed at: [facility] [id number] Manager Statistics: Wesly Cobb PhD, Phone: [phone] Performed By: #### L801.3865 #### [place] [address] PROGRESS Observed: 08/03/2017 Status: COMPLETED Source: [place] 10:02 AM [facility] [place] REPOSITORY HNO ID: [id number] Author: Emely Bartholomew Service: (none) Author Type: Physician General Contractor Type: Progress Notes Filed: 08/09/2017 8:56 PM Note Text: [facility] [place] Patient Name: Cassy Gomez Date of : 1955 EPILEPSY CLINIC NOTE - RETURN VISIT DATE: August 03, 2017 INITIAL OV: 12/22/2010 (previously under the care of Dr. Thornton [phone]) MOST RECENT OV: 01/19/2017 (AA) Ms. Cassy Gomez returns for follow-up in relationship to her seizure disorder. She comes to this appointment accompanied by her Maximino. She is an established pt of Dr. Randolph who was last seen by him on 01/19/2017. She's now s/p 4.5cm R EILEEN on 07/17/2016. She reports no known SZS; and no auras since as far as I can tell. No SZS have been observed by or other family members. She is very pleased with the outcome at this time.. She has not driven in many many years and is not interested in driving at the present time. Not driven since 1974. Would be too anxious to drive now. CURRENT AEDs 7AM and 7PM not missing doses CBZ XR (100) 200 BID LEV (750) 1500 BID Clobazam 10 BID (decreased from 20mg BID post-op) She will soon be transitioning from Clobazam to Clonazepam 1 mg BID due to cost. Other Interval History: No ER visits, hospitalizations or changes in health or social status since the last visit. Sold their home and now roaming between their children's home while trying to find a smaller life. So far enjoying this new gypsy lifestyle, but hoping to find a place soon. Memory/Cognition: Stable no issues Sleep: Good fom 9:30PM usually up at 4-5 AM Mood: Stable. No issues OP NOTE 07/27/2016 (Dr. Cali) Right temporal lobectomy with resection of mesial temporal structures. ... undermined the temporalis muscle and performed right frontotemporal craniotomy flap and then opened the dura and I then resected the right lateral temporal lobe, back to 4.5 cm posterior to the anterior aspect of the middle cranial fossa. The lateral horn was entered and the amygdala and the hippocampus was resected as well. These specimens were sent to Pathology. SURGICAL PATH (Dr. Adan) 1. 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 Amygdala, excision (B) - Gliosis - Focal perivascular chronic inflammation 3. Hippocampus, excision (C) - Focal neuronal loss and gliosis consistent with hippocampal sclerosis COMMENT: Histologic sections in part A show mild focal cortical architectural disorganization principally in a horizontal orientation. INTERVAL TEST RESULTS LONG EEG January 19, 2017 A/S (Dr. Blank) ? 1 ? ?Intermittent Slow, Regional right temporal ? 2 ? ?Asymmetry, Increased Beta right Impression: This EEG shows findings consistent with the prior right temporal lobe resection. Also seen were sharp transients intermixed with the right frontotemporal breach rhythm, and with rhythmic right midtemporal theta activity on the left, of uncertain significance. No clear epileptiform discharges or EEG seizures were recorded. CURRENT MEDICATIONS ranitidine (ZANTAC) 150 mg tablet Take 150 mg by mouth twice daily. LINZESS 145 mcg cap Take 145 mcg by mouth once daily. L. gasseri-B. bifidum-B longum ([facility] [employer]) 1.5 billion cell cap Take by mouth. clonazePAM (KLONOPIN) 1 mg tablet Take 1 tablet by mouth twice daily for 180 days. carBAMazepine XR (TEGRETOL XR) 100 mg 12 hr tablet Take 2 tablets by mouth twice daily. cloBAZam (ONFI) 10 mg tab tablet Take by mouth. Follow printed instructions to gradually reduce the dose to one pill (10mg) twice a day citalopram hydrobromide (CELEXA) 10 mg tablet Take 1 tablet by mouth every morning. levETIRAcetam (KEPPRA) 750 mg tablet Take 2 tablets by mouth twice daily. lisinopril-hydrochlorothiazide (PRINZIDE,ZESTORETIC) 10-12.5 mg per tablet Take 1 tablet by mouth once daily. Xu-G7-wym-mfhl-voh-nmne-boron (CALTRATE 600+D PLUS MINERALS) 600 mg calcium- 800 unit-40 mg chew Take 1 tablet by mouth once daily. atorvastatin (LIPITOR) 20 mg tablet Take 20 mg by mouth once daily. alendronate (FOSAMAX) 70 mg tablet Take 70 mg by mouth once each week. Wednesday senna (SENOKOT) 8.6 mg tab Take 1 tablet by mouth twice daily. COMPOUNDED PRESCRIPTION VNS (2008) Currently turned off Component Carbamazepine Carbamazepine, Free Clobazam Desmethylclobazam Levetiracetam Latest Ref Rng AND Units 8.0 - 12.0 ug/mL 1.6 - 2.4 ug/mL 30 - 300 ng/mL 300 - 3000 ng/mL 5.0 - 45.0 ug/mL 11/10/1999 6.8 (A) 11/15/1999 7.6 (A) 11/16/1999 6.7 (A) 1.8 11/17/1999 6.3 (A) 02/19/2000 9.5 09/09/2000 7.1 (A) 12/14/2000 7.5 (A) 05/30/2001 7.0 (A) 02/15/2003 12.8 (A) 02/16/2011 9.4 3.0 (H) 27.1 03/25/2016 4.5 (L) 1.2 (L) 382 (H) 1640 42.3 The patient's side effects to the current medications are none reported Denies missing any doses but may not take them at the same time each day. ======= PRIOR ANTICONVULSANT HISTORY: LAST UPDATED January 19, 2017 PHT, PhB, VPA, ESX, GBP, LTG, TPM, TGB and benzos KLN (had been tried prior to her visit here in 1999) CBZ IR up to 500-500 in the past [asymptomatic hyponatremia on BMP around 2013 leading to small dose decrease by total of 200/d] CBZ XR up to 800 BID when first seen by me 12/2010 [SZ worsening w attempt to decrease dose from 400 BID to 200 BID under my care] LEV up to 1500 BID currently same dose when first seen 12/2010 (no AEs at 2881-4561 per previous records) Clobazam started 10/2011 at 10 BID increased to 15 BID around 10/2015 and 20 BID 03/2016 (concern of constipation); trial to decrease to 10 BID 01/2017 LOST to F/U 07/2012 to 10/2015 after sustained SZ freedom with addition of Clobazam PGB tried between 3918-7036 ?started (outside [facility]) AEs when she reached 100-100 (?type of AEs) LCM tried between 1373-1945 ?started (outside [facility]) not tolerated (?type of AEs - no details) AEDs on 12/22/2010 LEV 5626-9570 SAME DOSE 2017 CBZ XR 800-800 decreased to 200 BID (2017) OTHER AEDs [facility] is listed in outside records but it is unclear if she is ever been on this AED (it appears she has been on a formulation of CBZ all along) ZNS unclear if this medication has been tried FBM not tried according to my review of all records VGB trial discussed prior to R EILEEN VNS implantation in 10/2008 OFF since 02/2010, switched off several months later as she was unable to tolerate effective settings stim- related AEs choking, unable to breathe, anxiety, indigestion per outside notes (up to 1.25mAmp; 250mcsec; 30Hz and including a trial of rapid cycling). Device was NOT removed at the time of the R EILEEN in 07/2016. She reports reactions to many AEDs, however, she is not sure which medication caused which reaction. Citalopram started 12/2010 at 10 QD; Increased to 20 QD in 02/2011 or more likely 10/2011; SELF D/C'd between 2303-8504 Restarted at 10 QD in 02/2016 SOCIAL HISTORY: Social History Marital status: Spouse name: Years of education: Number of children: Social History Main Topics Smoking status: Never Smoker Smokeless status: Never Used Alcohol use: No PAST MEDICAL HISTORY: PAST MEDICAL HISTORY Diagnosis Date - Depression - HTN (hypertension) - Localization-related (focal) (partial) epilepsy and epileptic syndromes with simple partial seizures, with intractable epilepsy - OA (osteoarthritis) - MAGDALENO (obstructive sleep apnea) - Port - wine birthmark right restorationist - Tinnitus of left ear REVIEW OF SYSTEMS: CONST:no weight change; no lightheadedness; no fevers, chills, or night sweats. Occasional headaches. EYES: no double vision; no blurred vision ENT: no change in hearing; no trouble swallowing NEURO: no focal weakness, no sensory loss CARD: no chest pain or palpitations, no leg edema RESP: no shortness of breath or cough : no urinary urgency, frequency, or hematuria GI: no abdominal pain or change in bowel habits MUSC: none PSYCH: no mood changes HEME: no bruising, bleeding, or swollen glands. All other organ systems are negative. Office Neurological Examination: BP 133/63 (BP Site: Left Arm, BP Position: Sitting, BP Cuff Size: Regular Adult) Pulse 63 Ht 167.6 cm (5' 6) Wt 81.1 kg (178 lb 12.8 oz) BMI 28.86 kg/m2 On exam, no signs of toxicity. Appearance: slight facial acne Mental State: Alert, oriented, intact speech and knowledge Cranial Nerves: Normal eye movements, no nystagmus. Facial movements normal Motor: Normal movements Coordination: no tremors, normal Mjprru-Cehf-Prnacz, Rapid Alternating Motion Gait: Normal posture, Romberg negative, tandem normal IMPRESSION: Temporal lobe epilepsy of adult onset (at 24yo within 6 months after 1st ) RIGHT TLE or possibly bitemporal epilepsy based on interictal and ictal EEGs (VEEGs x3 here in 1999; 2010 and 2015). MRI/PET in 2010 and 2015-7 did show predominant involvement of the RIGHT (presumably nondominant TL) and she's now SZ-free following a R 4.5cm EILEEN on 07/17/2016. 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 VNS implantation in 10/2008, OFF since 02/2010 (did NOT tolerate effective settings due to stim-related AEs); device remains in place post-EILEEN 2. RIGHT 4.5cm EILEEN (07/17/2016 Dr. Cali) PLAN: - Transition from Clobazam to Klonopin 1 mg BID due to cost, with plan to taper down the road - Continue LEV 1500 BID unchanged; CBZ XR 200 BID - Plan to aim for LEV monotherapy downthe road Risks, benefits, side effects, and alternatives to use of LEV, CBZ and Clobazam were discussed with the patient and her family who agreed with the plan as outlined above. Provider wtjl-cf-kfki time was 25 minutes with > 50% devoted to counseling or co-ordination of care. The patient will be scheduled for a return visit in 6 months or sooner if problems arise. Emely Bartholomew PA-C August 03, 2017 CNOV Observed: 08/03/2017 Status: COMPLETED Source: [place] 9:40 AM [facility] REPOSITORY Office Visit ([id number]) WAYNECASSY ([id number]) 1955 F Date Time Provider Department 08/03/17 9:40 AM EMELY BARTHOLOMEW) [id number] During your visit today, we recorded the following information about you: Pulse Blood pressure Weight Height 63/minute 133/63 81.1 kg 1.676 m Emely Bartholomew PA-C 08/09/2017 8:56 PM Signed [facility] [place] Patient Name: Cassy Gomez Date of : 1955 EPILEPSY CLINIC NOTE - RETURN VISIT DATE: August 03, 2017 INITIAL OV: 12/22/2010 (previously under the care of Dr. Thornton [id number]) MOST RECENT OV: 01/19/2017 (AA) Ms. Cassy Gomez returns for follow-up in relationship to her seizure disorder. She comes to this appointment accompanied by her Maximino. She is an established pt of Dr. Randolph who was last seen by him on 01/19/2017. She's now s/p 4.5cm R EILEEN on 07/17/2016. She reports no known SZS; and no auras since ANDquot;as far as I can tellANDquot;. No SZS have been observed by or other family members. She is very pleased with the outcome at this time.. She has not driven in many many years and is not interested in driving at the present time. Not driven since 1974. Would be too anxious to drive now. CURRENT AEDs 7AM and 7PM not missing doses CBZ XR (100) 200 BID LEV (750) 1500 BID Clobazam 10 BID (decreased from 20mg BID post-op) She will soon be transitioning from Clobazam to Clonazepam 1 mg BID due to cost. Other Interval History: No ER visits, hospitalizations or changes in health or social status since the last visit. Sold their home and now roaming between their children's home while trying to find a smaller life. So far enjoying this new gypsy lifestyle, but hoping to find a place soon. Memory/Cognition: Stable no issues Sleep: Good fom 9:30PM usually up at 4-5 AM Mood: Stable. No issues OP NOTE 07/27/2016 (Dr. Cali) Right temporal lobectomy with resection of mesial temporal structures. ... undermined the temporalis muscle and performed right frontotemporal craniotomy flap and then opened the dura and I then resected the right lateral temporal lobe, back to 4.5 cm posterior to the anterior aspect of the middle cranial fossa. The lateral horn was entered and the amygdala and the hippocampus was resected as well. These specimens were sent to Pathology. SURGICAL PATH (Dr. Adan) 1. 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 Amygdala, excision (B) - Gliosis - Focal perivascular chronic inflammation 3. Hippocampus, excision (C) - Focal neuronal loss and gliosis consistent with hippocampal sclerosis COMMENT: Histologic sections in part A show mild focal cortical architectural disorganization principally in a horizontal orientation. INTERVAL TEST RESULTS LONG EEG January 19, 2017 A/S (Dr. Blank) ? 1 ? ?Intermittent Slow, Regional right temporal ? 2 ? ?Asymmetry, Increased Beta right Impression: This EEG shows findings consistent with the prior right temporal lobe resection. Also seen were sharp transients intermixed with the right frontotemporal breach rhythm, and with rhythmic right midtemporal theta activity on the left, of uncertain significance. No clear epileptiform discharges or EEG seizures were recorded. CURRENT MEDICATIONS ranitidine (ZANTAC) 150 mg tablet Take 150 mg by mouth twice daily. LINZESS 145 mcg cap Take 145 mcg by mouth once daily. L. gasseri-B. bifidum-B longum ([facility] [employer]) 1.5 billion cell cap Take by mouth. clonazePAM (KLONOPIN) 1 mg tablet Take 1 tablet by mouth twice daily for 180 days. carBAMazepine XR (TEGRETOL XR) 100 mg 12 hr tablet Take 2 tablets by mouth twice daily. cloBAZam (ONFI) 10 mg tab tablet Take by mouth. Follow printed instructions to gradually reduce the dose to one pill (10mg) twice a day citalopram hydrobromide (CELEXA) 10 mg tablet Take 1 tablet by mouth every morning. levETIRAcetam (KEPPRA) 750 mg tablet Take 2 tablets by mouth twice daily. lisinopril-hydrochlorothiazide (PRINZIDE,ZESTORETIC) 10-12.5 mg per tablet Take 1 tablet by mouth once daily. Bh-C0-ekw-ljpl-npg-qskn-boron (CALTRATE 600+D PLUS MINERALS) 600 mg calcium- 800 unit-40 mg chew Take 1 tablet by mouth once daily. atorvastatin (LIPITOR) 20 mg tablet Take 20 mg by mouth once daily. alendronate (FOSAMAX) 70 mg tablet Take 70 mg by mouth once each week. Wednesday senna (SENOKOT) 8.6 mg tab Take 1 tablet by mouth twice daily. COMPOUNDED PRESCRIPTION VNS (2008) Currently turned off Component Carbamazepine Carbamazepine, Free Clobazam Desmethylclobazam Levetiracetam Latest Ref Rng ANDamp; Units 8.0 - 12.0 ug/mL 1.6 - 2.4 ug/mL 30 - 300 ng/mL 300 - 3000 ng/mL 5.0 - 45.0 ug/mL 11/10/1999 6.8 (A) 11/15/1999 7.6 (A) 11/16/1999 6.7 (A) 1.8 11/17/1999 6.3 (A) 02/19/2000 9.5 09/09/2000 7.1 (A) 12/14/2000 7.5 (A) 05/30/2001 7.0 (A) 02/15/2003 12.8 (A) 02/16/2011 9.4 3.0 (H) 27.1 03/25/2016 4.5 (L) 1.2 (L) 382 (H) 1640 42.3 The patient's side effects to the current medications are none reported Denies missing any doses but may not take them at the same time each day. - === PRIOR ANTICONVULSANT HISTORY: LAST UPDATED January 19, 2017 PHT, PhB, VPA, ESX, GBP, LTG, TPM, TGB and benzos KLN (had been tried prior to her visit here in 1999) CBZ IR up to 500-500 in the past [asymptomatic hyponatremia on BMP around 2013 leading to small dose decrease by total of 200/d] CBZ XR up to 800 BID when first seen by me 12/2010 [SZ worsening w attempt to decrease dose from 400 BID to 200 BID under my care] LEV up to 1500 BID currently same dose when first seen 12/2010 (no AEs at 6528-1885 per previous records) Clobazam started 10/2011 at 10 BID increased to 15 BID around 10/2015 and 20 BID 03/2016 (concern of constipation); trial to decrease to 10 BID 01/2017 LOST to F/U 07/2012 to 10/2015 after sustained SZ freedom with addition of Clobazam PGB tried between 4106-5429 ?started (outside [facility]) AEs when she reached 100-100 (?type of AEs) LCM tried between 1195-6293 ?started (outside [facility]) not tolerated (?type of AEs - no details) AEDs on 12/22/2010 LEV 2679-3656 SAME DOSE 2017 CBZ XR 800-800 decreased to 200 BID (2017) OTHER AEDs [facility] is listed in outside records but it is unclear if she is ever been on this AED (it appears she has been on a formulation of CBZ all along) ZNS unclear if this medication has been tried FBM not tried according to my review of all records VGB trial discussed prior to R EILEEN VNS implantation in 10/2008 OFF since 02/2010, switched off several months later as she was unable to tolerate effective settings stim-related AEs ANDquot;choking, unable to breathe, anxiety, indigestionANDquot; per outside notes (up to 1.25mAmp; 250mcsec; 30Hz and including a trial of rapid cycling). Device was NOT removed at the time of the R EILEEN in 07/2016. She reports reactions to many AEDs, however, she is not sure which medication caused which reaction. Citalopram started 12/2010 at 10 QD; Increased to 20 QD in 02/2011 or more likely 10/2011; SELF D/C'd between 6095-2795 Restarted at 10 QD in 02/2016 - ======== SOCIAL HISTORY: Social History Marital status: Spouse name: Years of education: Number of children: Social History Main Topics Smoking status: Never Smoker Smokeless status: Never Used Alcohol use: No PAST MEDICAL HISTORY: PAST MEDICAL HISTORY Diagnosis Date - Depression - HTN (hypertension) - Localization-related (focal) (partial) epilepsy and epileptic syndromes with simple partial seizures, with intractable epilepsy - OA (osteoarthritis) - MAGDALENO (obstructive sleep apnea) - Port - wine birthmark right restorationist - Tinnitus of left ear REVIEW OF SYSTEMS: CONST:no weight change; no lightheadedness; no fevers, chills, or night sweats. Occasional headaches. EYES: no double vision; no blurred vision ENT: no change in hearing; no trouble swallowing NEURO: no focal weakness, no sensory loss CARD: no chest pain or palpitations, no leg edema RESP: no shortness of breath or cough : no urinary urgency, frequency, or hematuria GI: no abdominal pain or change in bowel habits MUSC: none PSYCH: no mood changes HEME: no bruising, bleeding, or swollen glands. All other organ systems are negative. Office Neurological Examination: BP 133/63 (BP Site: Left Arm, BP Position: Sitting, BP Cuff Size: Regular Adult) Pulse 63 Ht 167.6 cm (5' 6ANDquot;) Wt 81.1 kg (178 lb 12.8 oz) BMI 28.86 kg/m2 On exam, no signs of toxicity. Appearance: slight facial acne Mental State: Alert, oriented, intact speech and knowledge Cranial Nerves: Normal eye movements, no nystagmus. Facial movements normal Motor: Normal movements Coordination: no tremors, normal Liwdii-Xqfc-Vbkzpr, Rapid Alternating Motion Gait: Normal posture, Romberg negative, tandem normal IMPRESSION: Temporal lobe epilepsy of adult onset (at 24yo within 6 months after 1st ) RIGHT TLE or possibly bitemporal epilepsy based on interictal and ictal EEGs (VEEGs x3 here in 1999; 2010 and 2015). MRI/PET in 2010 and 2015-7 did show predominant involvement of the RIGHT (presumably nondominant TL) and she's now SZ-free following a R 4.5cm EILEEN on 07/17/2016. 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 VNS implantation in 10/2008, OFF since 02/2010 (did NOT tolerate effective settings due to stim-related AEs); device remains in place post-EILEEN 2. RIGHT 4.5cm EILEEN (07/17/2016 Dr. Cali) PLAN: - Transition from Clobazam to Klonopin 1 mg BID due to cost, with plan to taper down the road - Continue LEV 1500 BID unchanged; CBZ XR 200 BID - Plan to aim for LEV monotherapy downthe road Risks, benefits, side effects, and alternatives to use of LEV, CBZ and Clobazam were discussed with the patient and her family who agreed with the plan as outlined above. Provider ccfo-wq-rzum time was 25 minutes with ANDgt; 50% devoted to counseling or co-ordination of care. The patient will be scheduled for a return visit in 6 months or sooner if problems arise. 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 CARBAMAZEPINE ER 100 MG TABLE* Take 2 tablets by mouth twice* CLONAZEPAM 1 MG TABLET Take 1 tablet by mouth twice * CLOBAZAM 10 MG TABLET Take by mouth. Follow printed* CITALOPRAM 10 MG TABLET Take 1 tablet by mouth every * LEVETIRACETAM 750 MG TABLET Take 2 tablets by mouth twice* LISINOPRIL 10 MG-HYDROCHLOROT* Take 1 tablet by mouth once d* CA 600 MG-D3 800 UNIT-MAGNES * Take 1 tablet by mouth once d* ATORVASTATIN 20 MG TABLET Take 20 mg by mouth once mirta* ALENDRONATE 70 MG TABLET Take 70 mg by mouth once each* SENNOSIDES 8.6 MG TABLET Take 1 tablet by mouth twice * Patient not taking: Reported on 01/19/2017 COMPOUNDED PRESCRIPTION VNS (2008) Currently turned o* Medication notes this encounter RANITIDINE 150 MG TABLET >> Bethany Madsen Ma 08/03/2017 9:44 AM >> BETHANY MADSEN MA WedAug 03, 2017 9:44 AM Received from: External Pharmacy >> Bethany Madsen Ma 08/03/2017 9:46 AM >> BETHANY MADSEN MA sherri Aug 03, 2017 9:46 AM LINZESS 145 MCG CAPSULE >> Bethany Madsen Ma 08/03/2017 9:44 AM >> BETHANY MADSEN MA sherri Aug 03, 2017 9:44 AM Received from: External Pharmacy >> Bethany Madsen Ma 08/03/2017 9:44 AM >> BETHANY MADSEN MA WedAug 03, 2017 9:44 AM Problem List As Of Date 08/03/2017 Noted Resolved Partial epilepsy with impairment of consciousne*INVALID FOR*01/19/2017 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] INVALID FOR* MAGDALENO on CPAP [G47.33, Z99.89] INVALID FOR* 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 Medications Discontinued During This Encounter linaclotide (LINZESS) 290 mcg cap 08/03/2017 Class: Historical Med Route: ORAL Sig: Take 290 mcg by mouth once daily. Disc: Erroneous entry docusate sodium (COLACE) 50 mg capsu* 08/03/2017 Class: Historical Med Route: ORAL Sig: Take 50 mg by mouth twice daily. Disc: Erroneous entry MAGNESIUM HYDROXIDE (MILK OF MAGNESI* 08/03/2017 Class: Historical Med Route: ORAL Sig: Take 1 Dose by mouth once daily as needed. Disc: Erroneous entry carBAMazepine XR (TEGRETOL XR) 100 m* 360 * 3 02/01/2017 08/03/2017 Route: ORAL Sig: Take 2 tablets by mouth twice daily. Disc: Reason for discontinue is not on file. Disposition: Return in about 6 months (around 02/03/2018). Follow-up and Disposition History Recorded Encounter Status:Closed by EMELY BARTHOLOMEW PA-C on 08/09/17 PAP(GINA),RADHA HI Collected: 07/29/2017 Status: F Source: [place] 10:30 AM [facility] REPOSITORY Order Comment: Specimen Comment: [id number] Specimen Comment: No. of containers..01 ThinPrep Vial TYPE CODE TESTS RESULT OUT OF RANGE REFERENCE UNITS LAB L801.4020 Test Normal Ordered Pap(Lb), rflx HPV Hi LAB L801.4024 Normal DIAGNOSIS Result Comment: NEGATIVE FOR INTRAEPITHELIAL LESION AND MALIGNANCY. LAB L801.4028 Normal Spec Adequacy Result Comment: Satisfactory for evaluation. Endocervical and/or squamous metaplastic cells (endocervical component) are present. LAB L801.4046 Normal Performed By Result Comment: Julieta Zheng, Larder Cook (ASCP) LAB L801.4060 . Normal . . LAB L801.4074 Normal Note Result Comment: The Pap smear is a screening test designed to aid in the detection of premalignant and malignant conditions of the uterine cervix. It is not a diagnostic procedure and should not be used as the sole means of detecting cervical cancer. Both false-positive and false-negative reports do occur. LAB L801.4076 Normal . Result Comment: The HPV DNA reflex criteria were not met with this specimen result therefore, no HPV testing was performed. Performed at: [address] [id number] Manager Statistics: Kyung Mathews MD, Phone: [phone] Performed By: #### L801.4000 #### [place] [address] [facility] Observed: 05/28/2017 Status: COMPLETED Source: [place] 12:00 AM [facility] REPOSITORY Telephone (NE50MN) CASSY GOMEZ ([id number]) 1955 F Date Time Provider Department 05/28/17 JUAN A RANDOLPH V NE50MN During your visit today, we recorded the following information about you: Chichi Patel Sec 05/28/2017 9:46 AM Signed Medication Concern Person Calling Cassy Patient is moving. After Kaylan 31st, please use cell [phone]. Name of medication Onfi Concern with medication Patient cannot afford Onfi. It costs her $465 per month. Is there any assistance available? Patient has [place] BC/BS [id number] Card lists pharmacist inquiry Generic or Brand brand Pharmacy name and # [facility] [phone] Harpreet Su RN, RN 05/28/2017 5:14 PM Signed Spoke with Cassy, she has enough medication to last her for the next few weeks. She was advised to contact On support to provide personal financial and insurance information, if notified that she is eligible for assistance Rx will be sent. Will await return call from patient. MADONNA Ni RN, RN 06/01/2017 9:18 AM Signed Called Cassy, no answer. Message left requesting return call regarding update on eligibility for patient assistance for Onfi MADONNA Ni RN, RN 06/02/2017 9:13 AM Signed Called Cassy, no answer. Message left requesting return call. MADONNA Ni RN, RN 06/03/2017 1:22 PM Signed Called Cassy, no answer. Message left requesting return call. Advised if she is not eligible for patient assistance, pklease call office to explore other options in terms of patient assistance and/or switching to another medication. Multiuple attempts to contact Cassy have been made. Will await return call. MADONNA Ni RN 06/04/2017 2:50 PM Signed Spoke to patient. They have been in [place] and are driving back to [place] now. On Support informed her there are no funds available this year for assistance. She currently has a two or more week supply of ONFI. She will change medication if needed. Discussed that this information will be discussed with Dr. Randolph and she will receive a response next week. Please contact her on her cell phone # [phone]. Maria Elena Garcia [facility] 06/04/2017 2:46 PM Signed Patient returned call to nurse. Su Garcia [facility] Jenna Azul 06/07/2017 8:35 AM Signed Patient called back to report that [facility] Support [place] did not receive funding and therefore cannot assist Cassy. Patient asked that Gianna call her at [phone] Gianna Su RN, RN 06/07/2017 12:17 PM Signed Per alistair Avery VO on 06/07/2017: Stop Onfi and begin CZP 1 mg BID NOV with Bob Bartholomew on 08/03/2017 at 10:00AM Called Cassy, no answer. Message left advising per above recommendations. Advised new RX for CZP 1 mg tablets will be sent to local pharmacy until other alternatives can be explores at next office visit in 07/2017. Forwarded to Isa Garay CNP for filing of pending CZP Rx MADONNA Ni RN, RN 06/07/2017 12:17 PM Signed Addended by: GIANNA SU on: 06/07/2017 12:17 PM Modules accepted: SAMAN Leon 06/07/2017 12:33 PM Signed Patient returned the call to the office. She has questions about the message left for her today. She can be reached at [phone] Gianna Su RN, RN 06/07/2017 1:10 PM Addendum Spoke with aCssy who states she has approximately 2 weeks left of Onfi and would like to finish out the prescription. She will begin CZP in ~ 2 weeks and then start CZP 1 mg BID. She verbalized understanding and agrees with plan. Forwarded to Cole for filing of pending Rx MADONNA Ni CNP 06/07/2017 1:14 PM Addendum A new prescription for CZP was called into [facility] pharmacy. 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 Follow printed* CITALOPRAM 10 MG TABLET Take 1 tablet by mouth every * LEVETIRACETAM 750 MG TABLET Take 2 tablets by mouth twice* SENNOSIDES 8.6 MG TABLET Take 1 tablet by mouth twice * Patient not taking: Reported on 01/19/2017 LISINOPRIL 10 MG-HYDROCHLOROT* Take 1 tablet by mouth once d* CA 600 MG-D3 800 UNIT-MAGNES * Take 1 tablet by mouth once d* ATORVASTATIN 20 MG TABLET Take 20 mg by mouth once mirta* DOCUSATE SODIUM 50 MG CAPSULE Take 50 mg by mouth twice kali* MILK OF MAGNESIA ORAL Take 1 Dose by mouth once kali* ALENDRONATE 70 MG TABLET Take 70 mg by mouth once each* COMPOUNDED PRESCRIPTION VNS (2008) Currently turned o* Problem List As Of Date 05/28/2017 Noted Resolved Partial epilepsy with impairment of consciousne*INVALID FOR*01/19/2017 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] INVALID FOR* MAGDALENO on CPAP [G47.33, Z99.89] INVALID FOR* 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89] INVALID FOR* Other osteoporosis without current pathological*INVALID FOR* Encounter Status:Closed by GIANNA SU on 06/03/17 ALLERGIES ALLERGIES DATE TYPE / CODE NAME / CODE REACTION SEVERITY SOURCE Drug NO KNOWN [facility] Class/93276 ALLERGIES Main Ong 1003(SNOMED Repository CT) ENCOUNTERS ENCOUNTERS ADMIT/DISCHARGE ACCOUNT ADMITTING ENCOUNTER LOCATION SOURCE NUMBER CLASS 04/25/2018/04/25/20 [id number] Ambulatory [address] Repository 04/25/2018/04/25/20 [id number] Ambulatory [address] Repository 04/16/2018 [id number] [facility] 04/01/2018 [id number] Ambulatory [place] [facility] Repository 09/29/2017 [id number] Ambulatory [place]uilding:[place] [facility] Hospital Repository 09/22/2017 [id number] Ambulatory UNIBuilding:[place] [facility] Repository 08/03/2017/08/04/19 [id number] Ambulatory [address] Repository 07/29/2017 [id number] Ambulatory OUTREACH[place] ing:[facility] Repository PAYERS PAYERS ENCOUNTER GUARANTOR PAYER SUBSCRIBER SOURCE 04/16/2018 DYLAN D Primary [place] [address] Insurance:JADEN LANG: Community [address] [id number]: Repository [address]Awp: 330 [id number] [phone] (HP) Date:[id number] [address]WQ: 04/16/2018 Secondary NOT GIVENUNK [place] Insurance:SELF PAY [facility] Number: Effective Repository Date:2018-04-16 04/01/2018 CASSY Primary [place] [address] Insurance:ANTHEM RAINSBERGERUNK [facility] [address] Repository [place], [place] Number: [id number]: 330 [id number] [phone] (HP) Date: 09/29/2017 [facility] Primary [place] [address] Insurance:ANTHEM RAINSBERGERUNK [facility] [address] Repository [place], [place] Number: [id number]: 330 [id number] [phone] (HP) Date: 09/22/2017 CASSY Primary [place] [address] Insurance:ANTHEM RAINSBERGERUNK [facility] [address] Repository [facility], [place] Number: [id number]: 330 [id number] [phone] (HP) Date: 07/29/2017 [facility]26 Insurance:ANTHEM RAINSBERGERUNK Hospital [address] Repository [place] [facility], [place] Number: [id number]: (330 [id number] [phone] (HP) Date:
== END ==
PROVIDERS: Family Provider Internal Medicine; PCP Internal Medicine; Referring Provider Internal Medicine; Visit Provider Internal Medicine
DX: E78.2 Mixed hyperlipidemia (principal)
CPT/HCPCS: 36415; 80053; 80061; 84443; 85025

== ENCOUNTER → 2019-03-08 17:56 | Outpatient (CLI) | payer MEDICARE, SELFPAY ==
[2019-03-14 20:17] LABS: HPV APTIMA, High Risk Negative (Negative)
== END ==
PROVIDERS: Family Provider Internal Medicine; PCP Internal Medicine; Referring Provider Obstetrics & Gynecology; Visit Provider Obstetrics & Gynecology
DX: Z12.4 Encounter for screening for malignant neoplasm of cervix (principal); Z78.0 Asymptomatic menopausal state
CPT/HCPCS: 87624; 88175; G0145

== ENCOUNTER → 2019-04-05 09:33 | Outpatient (CLI) | payer MEDICARE, SELFPAY ==
--- NOTE | 2019-04-05 09:35 | BI_ITS ---
MAMMOGRAPHY - BILATERAL SCREENING REASON FOR EXAM: Female, 64 years old. Routine annual screening examination. PERTINENT HISTORY: Non-contributory. TECHNIQUE: Digital bilateral breast jimena (3D mammographic acquisition) in the CC and MLO projections. 2-D mediolateral oblique (MLO) and craniocaudad (CC) views of both breasts were obtained. CAD: Full Field Digital Mammography with Computer Added Detection was performed. COMPARISON: Comparison is made with prior abdomen examination dated September 22, 2017. FINDINGS: Breast Composition: The breasts are almost entirely fatty. There are no dominant masses or suspicious calcifications. A pacemaker battery pack is seen in the left axillary region. No other significant abnormalities are identified. There has been no significant change since the prior study. BI/SCREEN MAMM (CAD) W/JIMENA BILAT IMPRESSION: Stable bilateral screening mammogram. Yearly follow-up mammogram recommended. (A) ASSESSMENT CATEGORY: BIRADS Category 1: Negative. A letter regarding these results will be sent to the patient by the facility within 30 days. Approximately 10% of breast cancers are not detected by mammography. A normal mammogram should not delay biopsy of a clinically suspicious abnormality. [id number] Electronically Signed: Gadiel Garduno, at 16:01 EST , Service support ,
--- NOTE | 2019-04-05 10:06 | BD_ITS ---
STUDY: DUAL ENERGY X-RAY ABSORPTIOMETRY / DXA REASON FOR EXAM: Female, 64 years old. The patient is postmenopausal. Loss of height. TECHNIQUE: Bone Mineral Density (BMD) measurements of lumbar spine and bilateral hips were obtained. COMPARISON: None. FINDINGS: Lumbar Spine (L1-L4): g/cm2 (1.173) / T-score (0.0) / Z-score (1.6) Findings are suggestive of normal bone density with a low fracture risk. Left Femur Total: g/cm2 (0.878) / T-score (-1.0) / Z-score (0.2) Left Femoral Neck: g/cm2 (0.797) / T-score (-1.7) / Z-score (-0.2) Right Femur Total: g/cm2 (0.887) / T-score (-1.0) / Z-score (0.3) Right Femoral Neck: g/cm2 (0.770) / T-score (-1.9) / Z-score (-0.4) BD/Dexa Bone Density Study IMPRESSION: The patient is considered osteopenic as outlined below according to World Galindo Organization (WHO) criteria with a moderate fracture risk. Reference Information: The T-score is the number of standard deviations above or below the standard which is normal for young adults at their peak bone mineral density. The World Health Organization (WHO) interprets the T-scores as follows: Above -1 Normal bone density Between -1 and -2.5 Osteopenia Equal to / or below -2.5 Osteoporosis As a practical clinical guideline, osteopenia may be graded as follows: Mild -1 through -1.5 Moderate -1.6 through -2.0 Severe -2.1 through -2.4 The Z-score is the number of standard deviations above or below age-matched controls. A Z-score of less than -1.5 would be considered abnormal. References: 1. NIH Osteoporosis and Related Bone Diseases http://www.osteo.org 2. International Society for Clinical Densitometry http://www.iscd.org 3. National Osteoporosis Foundation http://www.nof.org Electronically Signed: Gadiel Garduno, at 10:52 EST , Service support ,
== END ==
PROVIDERS: Family Provider Family Medicine; PCP Family Medicine; Referring Provider Family Medicine; Visit Provider Family Medicine
DX: Z12.31 Encounter for screening mammogram for malignant neoplasm of breast (principal); Z78.0 Asymptomatic menopausal state
CPT/HCPCS: 77063; 77067; 77080

== ENCOUNTER → 2019-06-05 09:14 | Outpatient (CLI) | payer MEDICARE, SELFPAY ==
[2019-06-05 10:21] LABS: Absolute Lymphocyte Count 2.08 X10^3/uL (0.83-4.51); Basophil# 0.03 X10^3/uL; Basophil% 0.5 % (0-1); Eosinophil# 0.19 X10^3/uL; Eosinophils% 3.3 % (0-5); Hematocrit 44.2 % (37-47); Hemoglobin 14.5 g/dL (12.0-15.0); Lymphocyte # 2.08 X10^3/ul (4.0); Lymphocyte % 35.8 % (19-41); Mean Corp Hgb Conc 32.8 g/dL (32-36); Mean Corpuscular Hgb 30.8 pg (27.0-32.0); Mean Corpuscular Volume 93.8 fL (81-99); Mean Platelet Vol. 10.1 fl (6.2-12.0); Monocyte# 0.53 X10^3/uL; Monocyte% 9.1 % (0-10); NRBC Flagged by Analyzer 0 % (0-5); Neutrophil # 2.97 X10^3/uL (2.7-7.7); Neutrophil % 51.1 % (47-70); Platelet Count 219 K/mm3 (150-450); RBC Distribution Width SD 41.6 fl (35.1-43.9); Red Blood Count 4.71 M/mm3 (4.2-5.4); White Blood Count 5.8 K/mm3 (4.4-11.0)
[2019-06-05 11:22] LABS: ALB/GLOB Ratio 1.1 RATIO (0.9-2.4); AST(SGOT) 15 U/L (15-37); Alanine Aminotransfer ALT/SGPT 36 U/L (13-56); Albumin, Serum 3.7 g/dL (3.2-5.0); Alkaline Phosphatase 63 U/L (45-117); Anion Gap 4 (5-15); BUN 14 mg/dL (7-18); BUN/Creat Ratio 15.9 RATIO (10-20); Chloride 104 mmol/L (98-107); Cholesterol 149 mg/dL (200); Creatinine, Serum 0.88 mg/dL (0.55-1.02); EST Glomerular Filtration Rate 68 mL/min (>60); Est Glom Filt Rate - Afr Amer 82 mL/min (>60); Globulin 3.5 g/dL (2.2-4.2); Glucose 95 mg/dL (74-106); High Density Lipoprotein 51 mg/dL; Potassium 3.8 mmol/L (3.5-5.1); Protein, Total 7.2 g/dL (6.4-8.2); Sodium Level 137 mmol/L (136-145); Triglycerides 158 mg/dL; Very Low Density Lipoprotein 32 mg/dL (5-40)
== END ==
PROVIDERS: PCP Family Medicine; Referring Provider Family Medicine; Visit Provider Family Medicine
DX: I10 Essential (primary) hypertension (principal); E78.5 Hyperlipidemia, unspecified; K21.9 Gastro-esophageal reflux disease without esophagitis
CPT/HCPCS: 36415; 80053; 80061; 85025

== ENCOUNTER → 2019-11-02 10:43 | Outpatient (CLI) | payer MEDICARE, SELFPAY ==
--- NOTE | 2019-11-02 10:57 | EKG12_ITS ---
Test Reason : PRE-OP Blood Pressure : / mmHG Vent. Rate : 057 BPM Atrial Rate : 057 BPM P-R Int : 172 ms QRS Dur : 098 ms QT Int : 420 ms P-R-T Axes : 040 032 027 degrees QTc Int : 408 ms Sinus bradycardia Otherwise normal ECG Confirmed by TENZIN IVY, JESSICA ([id number]), video news editor SOHAM PEREZ ([id number]) on 11/06/2019 9:52:36 AM Referred By: Silvestre Gomez Confirmed By:LANA DAVE MD
[2019-11-02 11:37] LABS: Absolute Lymphocyte Count 2.05 X10^3/uL (0.83-4.51); Basophil# 0.04 X10^3/uL; Basophil% 0.7 % (0-1); Eosinophil# 0.22 X10^3/uL; Eosinophils% 3.8 % (0-5); Hematocrit 44.1 % (37-47); Hemoglobin 14.5 g/dL (12.0-15.0); Lymphocyte # 2.05 X10^3/ul (4.0); Lymphocyte % 35.2 % (19-41); Mean Corp Hgb Conc 32.9 g/dL (32-36); Mean Corpuscular Hgb 32.2 pg (27.0-32.0); Mean Platelet Vol. 9.9 fl (6.2-12.0); Monocyte# 0.54 X10^3/uL; Monocyte% 9.3 % (0-10); NRBC Flagged by Analyzer 0 % (0-5); Neutrophil # 2.95 X10^3/uL (2.7-7.7); Neutrophil % 50.7 % (47-70); Platelet Count 217 K/mm3 (150-450); RBC Distribution Width CV 12.5 % (11.6-14.6); RBC Distribution Width SD 44.7 fl (35.1-43.9); White Blood Count 5.8 K/mm3 (4.4-11.0)
[2019-11-02 11:59] LABS: Anion Gap 5 (5-15); BUN 16 mg/dL (7-18); BUN/Creat Ratio 20.7 RATIO (10-20); Calcium,Total 9.2 mg/dL (8.5-10.1); Chloride 104 mmol/L (98-107); Creatinine, Serum 0.77 mg/dL (0.55-1.02); EST Glomerular Filtration Rate 79 mL/min (>60); Est Glom Filt Rate - Afr Amer 96 mL/min (>60); Glucose 92 mg/dL (74-106); Potassium 3.8 mmol/L (3.5-5.1); Sodium Level 140 mmol/L (136-145)
== END ==
PROVIDERS: PCP Family Medicine; Referring Provider Orthopaedic Surgery; Visit Provider Orthopaedic Surgery
DX: M17.11 Unilateral primary osteoarthritis, right knee (principal); M25.561 Pain in right knee; M22.41 Chondromalacia patellae, right knee
CPT/HCPCS: 36415; 80048; 85025; 93005

== ENCOUNTER 2020-01-08 10:30 | Outpatient (RCR) | payer MEDICARE, SELFPAY ==
--- NOTE | 2019-11-24 11:56 | HP.PTEVAL_ITS ---
Patient's Visit Information MARTÍNEZ BLACK is a 64 year old F referred to Physical Therapy by Dr. Silvestre Gomez MD with a diagnosis of Right TKR. Date of Evaluation: 11/24/19 Physical Therapist: Peg Chang DPT - Visit Plan Frequency: 3x /Week Duration: 4 Weeks Plan: TKR 11/23/2019- Focus on ROM, strength and functional mobility- GENTLE - Subjective Patient Right TKR 11/23/[address] Gomez- went home after surgery. Ranch with a ramp to enter- lives with her and helps as needed. Does not drive due to seizure problems so her is her chauffer. Sleeping in her bed- did not keep her from sleeping- was up to take medication last night. Worst: /10 Agg: bending Best: 0/10 reports the pain is more soreness- which is located just in the knee joint itself. No N/T the toes. Reports she ahs had pain for 5 years and this is so much better. She has an ice machine at home. Work: does not work- like to garden. PMHx: HTN Meds: lysinopril - Objective Posture: FH, RS, increased kyphosis- can correct with verbal cues. Gait: antalgic- decreased stance on the right LE- FWW- decreased stance on right LE with poor heel/toe raise. HR/TR: able. SLS: weight shift. Observation: blood on bandage- did not remove but helped pt put on PORFIRIO hose-mild bruising- no s/s of infection. ROM: 15-85 degrees. Strength: quad set visible- mild lag with SLR, Ankle: 5/5, Hip: 4+/5 Core: fair minus - Goals Goal 1:: Patient will be I with HEP and progression Goal Time Frame: 4-6 Weeks Goal 2:: Patient will asc/desc 8 stairs recip with 1 HR Goal Time Frame: 4-6 Weeks Goal 3:: Patient will ambulate >300 feet with a normalized gait pattern Goal Time Frame: 4-6 Weeks Goal 4:: Patient will demo 0-115 degrees of ROM in the right knee Goal Time Frame: 4-6 Weeks - Rehabilitation Potential Physical Therapy Diagnosis: Patient presents with hypomobility- she has decreased ROM, strength, flex and muscular endurance s/p right TKR leading to decreased ability to perform ADL's Rehabilitation Potential: Good - Anticipated Interventions Patient/Client Instruction: Educate patient on: Benefits of Fitness Program Therapeutic Exercise to Include: Strength training, Endurance training, Balance training, Coordination, Agility training, Body mechanics, Postural training, F lexibilty training, Gait and locomotor training, Neuromotor development, Passive ROM, Active ROM, Dynamic Lumbar Stabilization, Scapular Strength/Stabilization For the Purpose of:: To improve muscle performance and motor function Cryotherapy (ice pack, ice massage): Yes Thermo therapy (hot pack): Yes Ultrasound (thermal/non thermal): No Thank you for the opportunity to evaluate your patient. For Medicare and Medicare HMO plans, please review the plan of care and approve it. It will need to be FAXED BACK to us at [phone] for Medicare purposes. For Medicare only, by signing this I certify the plan of care. Please let me know if there are questions or concerns regarding this plan of care. Physician Signature: Date:
--- NOTE | 2019-12-13 10:59 | HP.PTREVAL ---
Dr. Silvestre Gomez MD, It has been my pleasure to treat MARTÍNEZ BLACK over the last 7 visits for Right TKR. Please see the progress note below for an update on the physical therapy plan of care! Subjective: Patient reports that she is 14 days post op at this time- she has attended PT for 7 visits. She sees the MD on December 11 for her post op follow up. Patient reports that she is still sore- Worst: 6/10 after therapy and it swells up- props her feet up and puts ice on it after therapy. Best: 0/10 Eases: prop up and keep off of it. Is wearing the PORFIRIO hose when she is out and about and therapy. Is unsure if she has jason or glue. No AD unless in the yard. Practicing stairs at home off the deck. Ex at home: heel slides, seated heel slides, steps up/down, leg legs. Sleeps in a bed- sleeps on her side and puts her legs on her side and tried to keep it straight. Objective/Function: Posture: FH, RS, increased kyphosis- can correct with verbal cues. Gait: improving-antalgic- decreased stance on the right LE- no AD- decreased stance on right LE with poor heel/toe raise. HR/TR: able. SLS: 5 sec then LOB. O ROM: -4-105 degrees. Strength: quad set visible- mild lag with SLR, Ankle: 5/5, Hip: 4+/5 Core: fair minus. Stairs: recip with 1 HR- poor control with descent and does not fully bend knee Plan Plan: Continued 2x a week for 4 weeks Goals Goal 1:: Patient will be I with HEP and progression Goal Time Frame: 4-6 Weeks Goal Progress: Progressing Goal 2:: Patient will asc/desc 8 stairs recip with 1 HR Goal Time Frame: 4-6 Weeks Goal Progress: Progressing Goal 3:: Patient will ambulate >300 feet with a normalized gait pattern Goal Time Frame: 4-6 Weeks Goal Progress: Progressing Goal 4:: Patient will demo 0-115 degrees of ROM in the right knee Goal Time Frame: 4-6 Weeks Goal Progress: Progressing Anticipated Interventions Patient/Client Instruction: Educate patient on: Benefits of Fitness Program Therapeutic Exercise to Include: Strength training, Endurance training, Balance training, Coordination, Agility training, Body mechanics, Postural training, Flexibilty training, Gait and locomotor training, Neuromotor development, Passive ROM, Active ROM, Dynamic Lumbar Stabilization, Scapular Strength/Stabilization For the Purpose of:: To improve muscle performance and motor function Cryotherapy (ice pack, ice massage): Yes Thermo therapy (hot pack): Yes Ultrasound (thermal/non thermal): No Please do not hesitate to contact me at [phone] by phone or if you have questions or concerns regarding this new plan of care! Sincerely, TERESA PavonT
--- NOTE | 2020-01-08 10:43 | HP.PTDCSUM ---
It has been my pleasure to treat MARTÍNEZ BLACK referred by Dr. Silvestre Gomez MD, with the diagnosis of Right TKR for a total of 16 visit(s). Discharge Date: Please see the following information for a summary of their discharge status. Subjective: Patient reports that she is 95% better- she is getting in.out of the bathtub now. The only thing she is not doing is getting down on her knee to garden. She is now sleeping through the night and pretty much back to normal. No pain to report in the knee. % Improvement: 95 Objective/Function: Posture: FH, RS, increased kyphosis- can correct with verbal cues. Gait: improving-slightly antalgic- decreased stance on the right LE- no AD HR/TR: able. SLS: 8 sec then LOB. O ROM: -4-110 degrees. Strength: Knee: 4+/5 Ankle: 5/5, Hip: 4+/5 Core: fair minus. Stairs: recip with 1 HR Goal 1:: Patient will be I with HEP and progression Goal Progress: Goal Met Goal 2:: Patient will asc/desc 8 stairs recip with 1 HR Goal Progress: Goal Met Goal 3:: Patient will ambulate >300 feet with a normalized gait pattern Goal Progress: Progressing Goal 4:: Patient will demo 0-115 degrees of ROM in the right knee Goal Progress: Progressing Plan: Discharge to I HEP If there are questions or concerns regarding this patient's physical therapy, please feel free to call me at [phone]. Thank you for the referral of this patient. Sincerely, Peg Chang DPT
== END 2020-01-08 19:00 | disposition home or self-care (01) ==
LOC: PT 10:30
PROVIDERS: PCP Family Medicine; Referring Provider Orthopaedic Surgery; Visit Provider Orthopaedic Surgery
DX: Z47.1 Aftercare following joint replacement surgery (principal); M17.11 Unilateral primary osteoarthritis, right knee; M22.41 Chondromalacia patellae, right knee; Z96.651 Presence of right artificial knee joint; Z48.02 Encounter for removal of sutures
CPT/HCPCS: 97110; 97161; 97164

== ENCOUNTER 2020-02-27 06:49 | Day surgery (SDC) | payer MEDICARE, SELFPAY ==
[2020-02-27] VITALS (8 sets, daily range): BP systolic 100–125; BP diastolic 53–70; PULSE 50–67; RESP 16–18; TEMP 36.3–36.5; O2SAT 97–98; BMI 32.5
[2020-02-27] MEDS: Lactated Ringers 1,000 ML 100 ML IV (07:40)
--- NOTE | 2020-02-27 07:53 | HP.PCM_ITS ---
History of Present Illness Date of Admission: 02/27/20 The patient is a 65 year old F here for surveillance colonoscopy. The patient had a colonoscopy 3 years ago and a polyp was identified. She was told to repeat in 3 years. She is not having any abdominal pain or blood in her stool. No family history of colon cancer. Past Medical/Surgical History - Planned Operation Planned Operative Procedure/s: colonoscopy Date of Operative Procedure: 02/27/20 Permit Signed: No S.O.S: No Is This Patient Having a Total Joint: No - Previous Hospitalizations/Surgeries HX Hospitalizations: Yes - 11/2019total knee right HX of Surgeries: 2017 removal right temporal lobe/seizure prevention. 2016 gall bladder hx VNS insertion/ turned off. 11/2019 right total knee /spectrum/n [place]. 1971/ twins 1981 tubal ligation 1981. colonoscopy/polypectomy Any Problems With Anesthesia: No You/Your Family Experience Fever (Hyperthermia) With Anes: No Cholinesterase deficiency: No - Cardiovascular Hx Chest Pain within Last 2 months: No Hx of Irregular Heartbeat and/or Afib: No Hx Heart Attack: No Hx Congestive Heart Failure: No Hx Rheumatic Fever: No Hx Hypertension: Yes - states controlled with med Hx Internal Defibrillator: No Hx Pacemaker: No Hx Cardiac Catheterization: No Hx Cardiac Surgery/Stents/Etc.: No Hx Stress Test: No HX Edema: No Hx Pain in Legs when Walking/Leg Cramps: No - Respiratory Chronic Cough: No HX of Shortness of Breath: No - denies Hoarseness: No - clears throat often per hx Hx Chronic Obstructive Pulmonary Disease (COPD): No Hx Asthma: No Hx Emphysema: No Hx Sleep Apnea: Yes - cpap CPAP: Yes BIPAP: No Hx Oxygen Use at Home: No Hx Respiratory Tract Infection/Cold (presently): No Result (for STOP score): Positive Hx Smoking: No Smoking Status: Never smoker - Gastrointestinal Hx Gastroesophageal Reflux: Yes Controlled With Meds: Yes - pepcid Hx Gastrointestinal Disorders: Yes - polypectomy Hx Gastrointestinal Bleed: No Hx Ulcer: No Hx Hiatal Hernia: No Difficulty Chewing/Swallowing: No Recent Onset of Swallowing Problems: No Special diet followed at home: No Hx Unplanned Weight Loss of 20#: No HX Unplanned Weight Gain of 20#: No - Neurological Hx Seizures: Yes - last 2016, prior to lobectomy HX Syncope/Blackout Spells/Unconsciousness: Yes - not since surgery/remains on Keppra Hx CVA/Stroke: No Hx Transient Ischemic Attacks (TIA): No Hx Multiple Sclerosis: No Hx Parkinson's Disease: No Hx Head/Neck Injury: Yes - hx siezure surgery/lobectomy Hx Headaches: No Hx Back Injury/Pain: No Recent Onset of Speech Difficulty: No Restless Legs: No Does patient have nerve stimulator: Yes - VNS left upper chest, inserted but turned off Patient instructed to have device shut off: Yes - off permanently Rep notified?: No - Blood Disorder Hx Leukemia: No Bleeding Tendencies: No Hx Deep Vein Thrombosis: No Hx High Cholesterol: Yes - on med Blood Transmitted Disease: No Hx Hepatitis: No Hx Cirrhosis: No Hx Anemia: No Hx Blood Disorders: No - Reproduction Hx Hysterectomy: No Hx Tubal Ligation: Yes Are You Post Menopause: Yes - Genitourinary Hx Renal Disease: No - Musculoskeletal Hx Arthritis: No Hx Rheumatoid Arthritis: No Hx Gout: Yes - in the past Recent Onset of an Orthopedic Problem: Yes - total knee ,rt 11/2019 - Endocrine Hx Diabetes: No Thyroid Disease: No Hx Steroid Therapy: No - Psycho/Social Hx Substance Use: No Hx Alcohol Use: No Hx Anxiety: Yes - on med Hx Depression: No Mental Illness: No Hx Dementia: No - Miscellaneous Hx Cancer: No Recent Exposure to Contagious Disease: No Active MRSA: No Hx of C-Diff: No Any Loose Teeth: No Additional information pertinent to anesthesia:: pt to ask Dr Albright about need for antibiotic pre procedure due to recent total knee replacement Allergies No Known Allergies Allergy (Verified 02/19/20 14:08) - Discharge Is Pt Admitted From a [facility], or a Detention: No Who Could Help: After D/C, Where Do you Plan to Go: Return Home - From the PAT History Number of Risk Factors: 1 - Physical Exam Vitals/I&O's: Vital Signs Temp Pulse Resp BP Pulse Ox 97.7 F L 67 18 125/61 H 98 02/27/20 07:20 02/27/20 07:20 02/27/20 07:20 02/27/20 07:20 02/27/20 07:20 Oxygen Delivery Method Room Air Weight: 196 lb Body Mass Index (BMI) 32.5 General: Alert, Oriented x3 Neck: No JVD Lungs: Normal air movement Cardiovascular: Regular rate, Regular Rhythm Abdomen: Soft, Non Tender, Non-Distended Current Medications Lactated Ringer's () 1,000 mls @ 100 mls/hr IV .Q10H HECTOR Last Admin: 02/27/20 07:40 Dose: 100 mls/hr Documented by: Assessment/Plan 65-year-old female with personal history of polyp I explained endoscopy in detail to the patient. I explained the risks including but not limited to stroke or heart attack with anesthesia, perforation of the GI tract, bleeding, infection. I explained that any of these could necessitate further emergency surgery. The patient understands and all questions were answered sufficiently. The patient wishes to proceed with procedure. We discussed the current risks associated with COVID-19. While it is understood that there is a community spread of COVID-19, the risk of [place] COVID-19 while at [facility] ([facility]) is very low; however, the risk cannot be completely mitigated because of the community spread of the disease. We discussed in detail the risk of exposure to and/or potential harm posed by the COVID-19 virus with having a surgery/procedure at this time versus the risk of delaying the surgery/procedure. It is not possible to know either the risk of delaying the surgery or procedure or chance of getting an infection with perfect accuracy, but a joint decision was made to proceed at this time with the scheduled surgery/procedure as indicated on the consent form. Patient was notified that we will need to comply with any screening or testing [facility] wishes to perform or that surgery may be delayed for any positive results. Arnol Albright MD Pager: [facility] [address] [place] [address], [address] [place] [address] Office: Surgery Risks - Colonoscopy Risks Include but are not Limited To: Risks include but are not limited to: Bleeding, perforation requiring further surgery, inability to complete colonoscopy requiring barium enema.
== END 2020-02-27 09:08 | disposition home or self-care (01) ==
LOC: EN 06:49 → AC 06:50
PROVIDERS: Anesthesiology; PCP Family Medicine; Referring Provider Family Medicine; Visit Provider Surgery
PROC: 0DJD8ZZ Inspection of Lower Intestinal Tract, Via Natural or Artificial Opening Endoscopic (ICD-10-PCS; CPT 45378; principal; 2020-02-27 07:55)
DX: Z12.11 Encounter for screening for malignant neoplasm of colon (principal); Z86.010 Personal history of colon polyps; I10 Essential (primary) hypertension; G47.30 Sleep apnea, unspecified; E78.00 Pure hypercholesterolemia, unspecified; K21.9 Gastro-esophageal reflux disease without esophagitis; R56.9 Unspecified convulsions; F41.9 Anxiety disorder, unspecified; Z79.899 Other long term (current) drug therapy; Z20.828 Contact with and (suspected) exposure to other viral communicable diseases
CPT/HCPCS: 45378; 87635; C9803; J7120; J2405; U0003

== ENCOUNTER → 2020-04-19 12:39 | Outpatient (CLI) | payer MEDICARE, SELFPAY ==
[2020-02-27 07:20] VITALS: BMI 32.5
--- NOTE | 2020-04-19 12:43 | BI_ITS ---
MAMMOGRAPHY - BILATERAL SCREENING REASON FOR EXAM: Female, 65 years old. Routine annual screening examination. PERTINENT HISTORY: Non-contributory. TECHNIQUE: Digital bilateral breast jimena (3D mammographic acquisition) in the CC and MLO projections. 2-D mediolateral oblique (MLO) and craniocaudad (CC) views of both breasts were obtained. CAD: Full Field Digital Mammography with Computer Added Detection was performed. COMPARISON: Comparison is made with prior study dated 04/05/2019. FINDINGS: Breast Composition: The breasts are almost entirely fatty. There are no dominant masses or suspicious calcifications. A battery pack is seen in the left axillary region. No other significant abnormalities are identified. There has been no significant change since the prior study. BI/SCREEN MAMM (CAD) W/JIMENA BILAT IMPRESSION: Stable bilateral screening mammogram. Yearly follow-up mammogram recommended. (A) ASSESSMENT CATEGORY: BIRADS Category 2: Benign. A letter regarding these results will be sent to the patient by the facility within 30 days. Approximately 10% of breast cancers are not detected by mammography. A normal mammogram should not delay biopsy of a clinically suspicious abnormality. [id number] Electronically Signed: Gadiel Garduno, at 14:05 EST , Service support ,
== END ==
PROVIDERS: PCP Family Medicine; Referring Provider Family Medicine; Visit Provider Family Medicine
DX: Z12.31 Encounter for screening mammogram for malignant neoplasm of breast (principal)
CPT/HCPCS: 77063; 77067

== ENCOUNTER → 2020-06-17 08:28 | Outpatient (CLI) | payer MEDICARE, SELFPAY ==
[2020-02-27 07:20] VITALS: BMI 32.5
[2020-06-17 09:10] LABS: Absolute Lymphocyte Count 1.49 X10^3/uL (0.83-4.51); Absolute Neutrophil Count 3.2 X10^3/uL (2.0-7.7); Basophil# 0.02 X10^3/uL; Basophil% 0.4 % (0-1); Eosinophil# 0.24 X10^3/uL; Eosinophils% 4.5 % (0-5); Hematocrit 42.9 % (37-47); Hemoglobin 14.4 g/dL (12.0-15.0); Lymphocyte # 1.49 X10^3/ul (4.0); Lymphocyte % 27.9 % (19-41); Mean Corp Hgb Conc 33.6 g/dL (32-36); Mean Corpuscular Hgb 31.1 pg (27.0-32.0); Mean Corpuscular Volume 92.7 fL (81-99); Mean Platelet Vol. 9.7 fl (6.2-12.0); Monocyte# 0.39 X10^3/uL; Monocyte% 7.3 % (0-10); NRBC Flagged by Analyzer 0 % (0-5); Neutrophil % 59.7 % (47-70); Platelet Count 218 K/mm3 (150-450); RBC Distribution Width CV 12.4 % (11.6-14.6); RBC Distribution Width SD 42.3 fl (35.1-43.9); Red Blood Count 4.63 M/mm3 (4.2-5.4); White Blood Count 5.4 K/mm3 (4.4-11.0)
[2020-06-17 09:37] LABS: ALB/GLOB Ratio 0.9 RATIO (0.9-2.4); AST(SGOT) 17 U/L (15-37); Alanine Aminotransfer ALT/SGPT 31 U/L (13-56); Albumin, Serum 3.7 g/dL (3.2-5.0); Alkaline Phosphatase 77 U/L (45-117); Anion Gap 6 (5-15); BUN 17 mg/dL (7-18); BUN/Creat Ratio 20.6 RATIO (10-20); Chloride 105 mmol/L (98-107); Cholesterol 180 mg/dL (200); Creatinine, Serum 0.83 mg/dL (0.55-1.02); EST Glomerular Filtration Rate 73 mL/min (>60); Est Glom Filt Rate - Afr Amer 89 mL/min (>60); Globulin 4.1 g/dL (2.2-4.2); Glucose 92 mg/dL (74-106); High Density Lipoprotein 48 mg/dL; Potassium 3.7 mmol/L (3.5-5.1); Protein, Total 7.8 g/dL (6.4-8.2); Sodium Level 139 mmol/L (136-145); Triglycerides 239 mg/dL; Very Low Density Lipoprotein 48 mg/dL (5-40)
== END ==
PROVIDERS: PCP Family Medicine; Referring Provider Family Medicine; Visit Provider Family Medicine
DX: I10 Essential (primary) hypertension (principal); E78.5 Hyperlipidemia, unspecified; M85.80 Other specified disorders of bone density and structure, unspecified site
CPT/HCPCS: 36415; 80053; 80061; 85025

== ENCOUNTER 2020-11-18 11:44 | Emergency (ER) | payer MEDICARE, SELFPAY ==
[2020-02-27 07:20] VITALS: BMI 32.5
[2020-11-18 11:45] VITALS: BP 150/88; PULSE 113; RESP 16; TEMP 36.6; O2SAT 95; BMI 35.1
--- NOTE | 2020-11-18 12:14 | EDS_ITS ---
HPI History of Present Illness Chief Complaint: Lower Extremity Injury Narrative Narrative: 65-year-old female presenting with left gluteal pain. She states on Wednesday she was sitting in a lawn chair and when she went to stand up she felt something pull in her left gluteal region. She states that she has difficulty walking secondary to this pain. She denies any paresthesias. She denies any direct trauma. PFSH PFSH Allergy/AdvReac Type Severity Reaction Status Date / Time No Known Allergies Allergy Verified 11/18/20 11:45 Social History Smoking Status: Never smoker ROS ROS ED Constitutional Constitutional ED: Denies chills, fever(s) or sweats Eyes Eyes: Denies blurry vision or change in vision ENT ENT ED: Denies rhinorrhea or sore throat Cardiovascular Cardiovascular: Denies chest pain or palpitations Respiratory/Chest Respiratory/Chest: Denies cough or dyspnea Gastrointestinal Gastrointestinal: Denies abdominal pain or nausea Genitourinary Genitourinary ED: Denies dysuria or hematuria Musculoskeletal Musculoskeletal: Reports other Details: Left gluteal pain Integumentary Denies abscess or rash Neurologic Neurologic: Denies headache(s) or weakness Psychiatric Psychiatric: Denies anxiety or depression EXAM Physical Exam Const Vital Signs: 11/18/20 11:45 Temperature 98 F Temperature Source Temporal Pulse Rate 113 H Respiratory Rate 16 Blood Pressure 150/88 H Blood Pressure Mean 108 Pulse Ox 95 Oxygen Delivery Method Room Air Positive well nourished General Appearance ED: NAD HEENT Reports moist mucous membranes Negative for trauma Eyes PERRL and EOMs intact bilaterally Resp normal respiratory effort Cardio regular rate and regular rhythm Extremity Extremity Narrative: Tenderness to palpation focally in the left gluteal region. Patient ambulatory in room with antalgic gait. No rash or ecchymosis. Neuro oriented x3 and CN's II-XII intact bilaterally Sensorium / Orientation: alert Psych mental status grossly normal Skin no rashes or lesions noted and no wounds MDM MDM MDM Narrative Medical decision making narrative: 55-year-old female presenting with left gluteal pain. She denies any direct trauma. She is ambulatory with antalgic gait. She states that [id number]-[id number] medications were not helping her pain. I do not believe she needs any imaging or lab work. Patient given [place] in the ED. Patient will be given a short prescription until she can follow-up with her primary care doctor. She is discharged home in stable condition. Impression: #1 left gluteal strain Discharge Plan Triage Chief Complaint: Lower Extremity Injury ED Provider: Robert Chacon Dx/Rx/DC Orders Instructions: ED Sciatica Primary Care Provider: Anamika Chowdhury Referrals: Anamika Chowdhury MD [Primary Care Provider] - Disposition Disposition: Home, Self Care
[2020-11-18] MEDS: HYDROcodone Bitartrate/Apap 5/325 Tablet PO (12:19)
== END 2020-11-18 12:26 | disposition home or self-care (01) ==
PROVIDERS: Emergency Provider Student in an Organized Health Care Education/Training Program; PCP Family Medicine
DX: S76.012A Strain of muscle, fascia and tendon of left hip, initial encounter (principal); R26.2 Difficulty in walking, not elsewhere classified; X58.XXXA Exposure to other specified factors, initial encounter; Y93.9 Activity, unspecified; Y92.9 Unspecified place or not applicable; Y99.9 Unspecified external cause status
CPT/HCPCS: 99283

== ENCOUNTER 2021-02-18 13:45 | Outpatient (CLI) | payer MEDICARE, SELFPAY ==
[2021-02-18 14:20] VITALS: BP 139/64; PULSE 88; RESP 16; TEMP 37.7; O2SAT 97; BMI 33.3
[2021-02-18] MEDS: 0.9% Saline Lock 10 ML Syringe IV (14:26)
[2021-02-18 14:51] VITALS: BP 136/69; PULSE 87; RESP 16; TEMP 36.7; O2SAT 97
[2021-02-18 15:51] VITALS: BP 136/68; PULSE 84; RESP 16; TEMP 37.9; O2SAT 97
== END 2021-02-18 16:00 | disposition home or self-care (01) ==
LOC: MS3OUT 13:45 → MS3 13:46
PROVIDERS: PCP Family Medicine; Referring Provider Nurse Practitioner Adult Health; Visit Provider Nurse Practitioner Adult Health
DX: Z23 Encounter for immunization (principal); U07.1 COVID-19
CPT/HCPCS: J7050; M0243; A4216; Q0244

== ENCOUNTER 2021-06-09 09:12 | Outpatient (CLI) | payer MEDICARE, SELFPAY ==
[2021-06-09 09:47] LABS: Absolute Lymphocyte Count 1.73 X10^3/uL (0.83-4.51); Absolute Neutrophil Count 3.7 X10^3/uL (2.0-7.7); Basophil# 0.03 X10^3/uL; Basophil% 0.5 % (0-1); Eosinophil# 0.26 X10^3/uL; Eosinophils% 4.2 % (0-5); Hematocrit 43.2 % (37-47); Hemoglobin 14.7 g/dL (12.0-15.0); Lymphocyte # 1.73 X10^3/ul (0.83-4.51); Lymphocyte % 27.7 % (19-41); Mean Corpuscular Hgb 31.5 pg (27.0-32.0); Mean Corpuscular Volume 92.7 fL (81-99); Mean Platelet Vol. 9.7 fl (6.2-12.0); Monocyte# 0.49 X10^3/uL; Monocyte% 7.9 % (0-10); NRBC Flagged by Analyzer 0 % (0-5); Neutrophil # 3.71 X10^3/uL (2.7-7.7); Neutrophil % 59.4 % (47-70); Platelet Count 233 K/mm3 (150-450); RBC Distribution Width CV 12.2 % (11.6-14.6); RBC Distribution Width SD 41.7 fl (35.1-43.9); Red Blood Count 4.66 M/mm3 (4.2-5.4); White Blood Count 6.2 K/mm3 (4.4-11.0)
[2021-06-09 10:21] LABS: AST(SGOT) 22 U/L (15-37); Alanine Aminotransfer ALT/SGPT 46 U/L (13-56); Albumin, Serum 3.9 g/dL (3.2-5.0); Alkaline Phosphatase 67 U/L (45-117); Anion Gap 6 (5-15); BUN 16 mg/dL (7-18); BUN/Creat Ratio 18.1 RATIO (10-20); Calcium,Total 9.5 mg/dL (8.5-10.1); Chloride 104 mmol/L (98-107); Cholesterol 169 mg/dL (200); Creatinine, Serum 0.88 mg/dL (0.55-1.02); EST Glomerular Filtration Rate 68 mL/min (>60); Est Glom Filt Rate - Afr Amer 82 mL/min (>60); Glucose 110 mg/dL (74-106); High Density Lipoprotein 49 mg/dL; Potassium 3.7 mmol/L (3.5-5.1); Protein, Total 7.9 g/dL (6.4-8.2); Sodium Level 139 mmol/L (136-145); Triglycerides 224 mg/dL; Very Low Density Lipoprotein 45 mg/dL (5-40)
== END 2021-06-09 23:59 | disposition short-term general hospital (02) ==
LOC: LAB 09:15
PROVIDERS: PCP Family Medicine; Visit Provider Family Medicine
DX: I10 Essential (primary) hypertension (principal); E78.5 Hyperlipidemia, unspecified; K21.9 Gastro-esophageal reflux disease without esophagitis
CPT/HCPCS: 36415; 80053; 80061; 85025

== ENCOUNTER → 2021-10-15 | Outpatient (CLI) | payer MEDICARE, SELFPAY ==
--- NOTE | 2021-10-15 15:37 | BI_ITS ---
MAMMOGRAPHY - BILATERAL SCREENING REASON FOR EXAM: Female, 66 years old. Routine annual screening examination. PERTINENT HISTORY: Non-contributory. TECHNIQUE: Digital bilateral breast jimena (3D mammographic acquisition) in the CC and MLO projections. 2-D mediolateral oblique (MLO) and craniocaudad (CC) views of both breasts were obtained. CAD: Full Field Digital Mammography with Computer Added Detection was performed. COMPARISON: Comparison is made with prior study dated 01/19/2020 and 04/05/2019. FINDINGS: Breast Composition: The breasts are almost entirely fatty. There are no dominant masses or suspicious calcifications. A battery pack is seen in the left axillary region No other significant abnormalities are identified. There has been no significant change since the prior study. BI/SCRN MAMM (CAD)W/JIMENA BILAT IMPRESSION: Stable bilateral screening mammogram. Yearly follow-up mammogram recommended. (A) ASSESSMENT CATEGORY: BIRADS Category 1: Negative. A letter regarding these results will be sent to the patient by the facility within 30 days. Approximately 10% of breast cancers are not detected by mammography. A normal mammogram should not delay biopsy of a clinically suspicious abnormality. [id number] Electronically Signed: Gadiel Garduno MD at 8:21 EDT ,
== END | disposition home or self-care (01) ==
LOC: OPBI 15:29
PROVIDERS: PCP Family Medicine; Visit Provider Family Medicine
DX: Z12.31 Encounter for screening mammogram for malignant neoplasm of breast (principal)
CPT/HCPCS: 77063; 77067

== ENCOUNTER 2021-10-29 17:48 | Emergency (ER) | payer MEDICARE, SELFPAY ==
[2021-10-29 17:49] VITALS: BP 156/75; PULSE 70; RESP 16; TEMP 36.8; O2SAT 97; BMI 33.0
--- NOTE | 2021-10-29 17:55 | RAD_ITS ---
EXAM: XR LEFT ELBOW COMPLETE, 3 OR MORE VIEWS CLINICAL INDICATION: FALL TECHNIQUE: Frontal, lateral and oblique views of the left elbow. This report was created using [employer] report generation technology. COMPARISON: None. FINDINGS: BONES/JOINTS: Unremarkable. There is no displacement of the anterior or posterior fat pads. No acute fracture. No subluxation. Normal alignment. Preservation of the joint space. No destructive or sclerotic lesions. SOFT TISSUES: Unremarkable. No soft tissue swelling or gas. No radiopaque foreign body. RAD/Elbow min 3 Views IMPRESSION: Negative left elbow. Electronically Signed: Osmel oRdriguez MD at 18:15 EDT ,
--- NOTE | 2021-10-29 20:20 | RAD_ITS ---
STUDY: X-RAY XR Forearm 2 Views REASON FOR EXAM: Female, 66 years old. PAIN TECHNIQUE: XR Forearm 2 Views LEFT COMPARISON: None. FINDINGS: There is degenerative arthrosis of the carpometacarpal articulation of the thumb. Cortical irregularity of the radial styloid. This may suggest a nondisplaced fracture. Along the dorsum of the wrist, there is a calcification overlying the triquetrum. This may suggest a avulsive fracture. RAD/Forearm 2 Views IMPRESSION: There is degenerative arthrosis of the carpometacarpal articulation of the thumb. Cortical irregularity of the radial styloid. This may suggest a nondisplaced fracture. Along the dorsum of the wrist, there is a calcification overlying the triquetrum. This may suggest a avulsive fracture. Electronically Signed: Osmel Rodriguez MD at 20:55 EDT ,
--- NOTE | 2021-10-29 20:20 | RAD_ITS ---
STUDY: XR Hand Min 3 Views REASON FOR EXAM: Female, 66 years old. pain TECHNIQUE: XR Hand Min 3 Views LEFT COMPARISON: None. FINDINGS: Normal radiocarpal articulation. Normal distal radioulnar joint. Normal visualized carpal bones. Normal carpal articulations Normal metacarpi. Normal metacarpophalangeal joint of the thumb. Normal interphalangeal joint of the thumb. Normal proximal and distal phalanges of the thumb. Normal metacarpophalangeal joints of the second through fifth fingers. There is diffuse articular joint space narrowing of the proximal and distal interphalangeal joints of the second through fifth fingers, but without erosive changes or periarticular soft tissue swelling. Normal phalanges of the second through fifth fingers. There is degenerative arthrosis of the carpometacarpal articulation of the thumb. Cortical irregularity of the radial styloid. This may suggest a nondisplaced fracture. Along the dorsum of the wrist, there is a calcification overlying the triquetrum. This may suggest a avulsive fracture. RAD/Hand Min 3 Views IMPRESSION: There is degenerative arthrosis of the carpometacarpal articulation of the thumb. Cortical irregularity of the radial styloid. This may suggest a nondisplaced fracture. Along the dorsum of the wrist, there is a calcification overlying the triquetrum. This may suggest a avulsive fracture. Electronically Signed: Osmel Rodriguez MD at 20:55 EDT ,
--- NOTE | 2021-10-29 20:20 | RAD_ITS ---
STUDY: XR Wrist Min 3 Views REASON FOR EXAM: Female, 66 years old. painTechnologist Notes PT FELL DOWN 3 STAIRS. LEFT WRIST PAIN TECHNIQUE: XR Wrist Min 3 Views LEFT COMPARISON: None FINDINGS: Cortical irregularity of the radial styloid. This may suggest a nondisplaced fracture. There are no acute findings of the radiocarpal articulation. Normal distal radioulnar articulation. Along the dorsum of the wrist, there is a calcification overlying the triquetrum. This may suggest a avulsive fracture. Normal carpal articulations. There is degenerative arthrosis of the carpometacarpal articulation of the thumb. Normal second through fifth carpometacarpal articulations. There are no acute findings of the visualized metacarpal bones. The soft tissue structures are unremarkable. RAD/Wrist min 3 Views IMPRESSION: There is degenerative arthrosis of the carpometacarpal articulation of the thumb. Cortical irregularity of the radial styloid. This may suggest a nondisplaced fracture. Along the dorsum of the wrist, there is a calcification overlying the triquetrum. This may suggest a avulsive fracture. Electronically Signed: Osmel Rodriguez MD at 20:54 EDT ,
[2021-10-29] MEDS: Ibuprofen 600 MG Tablet PO (20:27)
--- NOTE | 2021-10-29 20:32 | ED.RN ---
pt took own home meds.
--- NOTE | 2021-10-29 22:48 | EDS_ITS ---
HPI HPI - Fall History of Present Illness Chief Complaint: Fall Narrative Narrative: Patient presenting after mechanical fall. She states she misstepped and fell downward while stepping down a couple of steps. She landed on her knee first and then fell to her elbow and forearm. She has pain from her elbow down to her fingertips. She denies any numbness or tingling. There is no bruising or swelling. She did not hit her head or lose consciousness. She did hit her knee but is ambulatory and does not complain of knee pain. [facility] Medical History (Updated 10/29/21 @ 19:29 by Wendy Haynes) Fall Home Medications alendronate 70 mg tablet 70 mg PO TU 02/19/20 [History Last Taken Unknown] atorvastatin 20 mg tablet 20 mg PO DAILY cholesterol 02/19/20 [History Last Taken Unknown] calcium carbonate 600 mg-vitamin D3 20 mcg (800 unit) tablet 1 ea PO DAILY supplement 02/19/20 [History Last Taken Unknown] citalopram 10 mg tablet 10 mg PO DAILY anxiety 02/19/20 [History Last Taken Unknown] famotidine 20 mg tablet 20 mg PO BID reflux 02/19/20 [History Last Taken 02/27/20 05:00] levetiracetam 750 mg tablet 2 tab PO BID seizures 02/19/20 [History Last Taken 02/27/20 05:00] lisinopril 10 mg-hydrochlorothiazide 12.5 mg tablet 1 ea PO DAILY htn 02/19/20 [History Last Taken Unknown] vit C 250 mg-vit E 90 mg-zinc 40 mg-copper 1 [id number] capsule 1 ea PO BID eyes 02/19/20 [History Last Taken Unknown] Allergy/AdvReac Type Severity Reaction Status Date / Time No Known Allergies Allergy Verified 10/29/21 17:48 Social History Smoking Status: Never smoker ROS ROS ED Constitutional Constitutional ED: Denies chills, fever(s) or sweats Eyes Eyes: Denies blurry vision or change in vision ENT ENT ED: Denies rhinorrhea or sore throat Cardiovascular Cardiovascular: Denies chest pain or palpitations Respiratory/Chest Respiratory/Chest: Denies cough or dyspnea Gastrointestinal Gastrointestinal: Denies abdominal pain or nausea Genitourinary Genitourinary ED: Denies dysuria or hematuria Musculoskeletal Musculoskeletal: Reports other Details: Pain throughout left arm from the elbow to the fingertips. Integumentary Denies abscess or rash Neurologic Neurologic: Denies headache(s) or weakness Psychiatric Psychiatric: Denies anxiety or depression EXAM Physical Exam Const Vital Signs: 10/29/21 17:49 Temperature 98.2 F Temperature Source Temporal Pulse Rate 70 Respiratory Rate 16 Blood Pressure 156/75 H Blood Pressure Mean 102 Pulse Ox 97 Oxygen Delivery Method Room Air MDM MDM MDM Narrative Medical decision making narrative: Patient given ibuprofen for her pain. It is difficult to localize her pain because everywhere I touch on her arm circumferentially from her elbow down to her fingertips the patient yells ow. There is no deformity, bruising, swelling. The patient is neurovascular intact throughout. X-rays of the left elbow on my interpretation are negative for acute fracture. On the left forearm, hand x-ray there are no acute findings in the hand of the forearm however there is some radiographic abnormalities at the styloid and at the triquetrium. These are possibly fractures on my interpretation. The left wrist x-ray also shows this on my interpretation. Some of these however looks old. I did discuss the images with Dr. Guzmán and he did review them and they cannot determine whether these are old or new. I did tell him that I cannot localize any the pain because everywhere I touch hurts. He recommended putting in her in a Velcro wrist splint. She is to use Tylenol and ibuprofen alternating at home and ice and elevation. He will see her in a week outpatient and dayne-ray her wrist. She is amenable to this plan. She is discharged home in stable condition. Impression: 1 mechanical fall 2. Radial styloid fracture indeterminate age 3. Triquetrium fracture indeterminate age Radiography Diagnostic Testing: Clinical Impression(s) from Imaging Studies Elbow X-Ray 10/29/21 17:55 IMPRESSION: Negative left elbow. Electronically Signed: Osmel Rodriguez MD at 18:15 EDT , Forearm X-Ray 10/29/21 20:20 IMPRESSION: There is degenerative arthrosis of the carpometacarpal articulation of the thumb. Cortical irregularity of the radial styloid. This may suggest a nondisplaced fracture. Along the dorsum of the wrist, there is a calcification overlying the triquetrum. This may suggest a avulsive fracture. Electronically Signed: Osmel Rodriguez MD at 20:55 EDT , Hand X-Ray 10/29/21 20:20 IMPRESSION: There is degenerative arthrosis of the carpometacarpal articulation of the thumb. Cortical irregularity of the radial styloid. This may suggest a nondisplaced fracture. Along the dorsum of the wrist, there is a calcification overlying the triquetrum. This may suggest a avulsive fracture. Electronically Signed: Osmel Rodriguez MD at 20:55 EDT , Wrist X-Ray 10/29/21 20:20 IMPRESSION: There is degenerative arthrosis of the carpometacarpal articulation of the thumb. Cortical irregularity of the radial styloid. This may suggest a nondisplaced fracture. Along the dorsum of the wrist, there is a calcification overlying the triquetrum. This may suggest a avulsive fracture. Electronically Signed: Osmel Rodriguez MD at 20:54 EDT , Discharge Plan Triage Chief Complaint: Fall ED Provider: Robert Chacon Dx/Rx/DC Orders Instructions: ED Possible Wrist Fracture Prescriptions: No Action atorvastatin 20 MG tablet 20 mg PO DAILY citalopram 10 MG tablet 10 mg PO DAILY alendronate 70 MG tablet 70 mg PO TU famotidine 20 MG tablet 20 mg PO BID levetiracetam 750 MG tablet 2 tab PO BID lisinopril-hydrochlorothiazide 1 EACH tablet 1 ea PO DAILY calcium carbonate-vitamin D3 1 EACH tablet 1 ea PO DAILY vit C,Z-Ac-fxhxn-lutein-zeaxan 1 EACH capsule 1 ea PO BID Primary Care Provider: Anamika Chowdhury Referrals: Anamika Chowdhury MD [Primary Care Provider] - Mio Guzmán DO [STAFF PHYSICIAN] - 3-5 Days Disposition Disposition: Home, Self Care Discharge Date/Time: 10/29/21 22:06
== END 2021-10-29 22:06 | disposition home or self-care (01) ==
PROVIDERS: Emergency Provider Student in an Organized Health Care Education/Training Program; PCP Family Medicine; Visit Provider Student in an Organized Health Care Education/Training Program
DX: S62.112A Displaced fracture of triquetrum [cuneiform] bone, left wrist, initial encounter for closed fracture (principal); S52.512A Displaced fracture of left radial styloid process, initial encounter for closed fracture; W10.9XXA Fall (on) (from) unspecified stairs and steps, initial encounter; Z79.899 Other long term (current) drug therapy
CPT/HCPCS: 73080; 73090; 73110; 73130; 99283

== ENCOUNTER → 2022-10-19 | Outpatient (CLI) | payer MEDICARE, SELFPAY ==
--- NOTE | 2022-10-19 15:56 | BI_ITS ---
MAMMOGRAPHY - BILATERAL SCREENING REASON FOR EXAM: Female, 67 years old. Routine annual screening examination. PERTINENT HISTORY: Non-contributory. TECHNIQUE: Digital bilateral breast jimena (3D mammographic acquisition) in the CC and MLO projections. 2-D mediolateral oblique (MLO) and craniocaudad (CC) views of both breasts were obtained. CAD: Full Field Digital Mammography with Computer Added Detection was performed. COMPARISON: Comparison is made with prior examination dated October 15, 2021 and April 19, 2020. FINDINGS: Breast Composition: The breasts are almost entirely fatty. There are no dominant masses or suspicious calcifications. A battery pack is seen in the left axillary region. No other significant abnormalities are identified. There has been no significant change since the prior study. BI/SCRN MAMM (CAD)W/JIMENA BILAT IMPRESSION: Stable bilateral screening mammogram. Yearly follow-up mammogram recommended. (A) ASSESSMENT CATEGORY: BIRADS Category 1: Negative. A letter regarding these results will be sent to the patient by the facility within 30 days. Approximately 10% of breast cancers are not detected by mammography. A normal mammogram should not delay biopsy of a clinically suspicious abnormality. [id number] Electronically Signed: Gadiel Garduno MD at 8:36 EDT ,
== END | disposition home or self-care (01) ==
LOC: OPBI 15:54
PROVIDERS: PCP Family Medicine; Referring Provider Family Medicine; Visit Provider Family Medicine
DX: Z12.31 Encounter for screening mammogram for malignant neoplasm of breast (principal)
CPT/HCPCS: 77063; 77067

== ENCOUNTER → 2023-01-19 | Outpatient (CLI) | payer MEDICARE, SELFPAY ==
[2023-01-19 09:37] LABS: Absolute Lymphocyte Count 2.08 X10^3/uL (0.83-4.51); Absolute Neutrophil Count 3.3 X10^3/uL (2.0-7.7); Basophil# 0.03 X10^3/uL; Basophil% 0.5 % (0-1); Eosinophil# 0.23 X10^3/uL; Eosinophils% 3.7 % (0-5); Hematocrit 44.5 % (37-47); Hemoglobin 14.5 g/dL (12.0-15.0); Lymphocyte # 2.08 X10^3/ul (0.83-4.51); Lymphocyte % 33.5 % (19-41); Mean Corp Hgb Conc 32.6 g/dL (32-36); Mean Corpuscular Hgb 31.1 pg (27.0-32.0); Mean Corpuscular Volume 95.5 fL (81-99); Mean Platelet Vol. 9.7 fl (6.2-12.0); Monocyte# 0.54 X10^3/uL; Monocyte% 8.7 % (0-10); NRBC Flagged by Analyzer 0 % (0-5); Neutrophil % 53.3 % (47-70); Platelet Count 224 K/mm3 (150-450); RBC Distribution Width CV 12.1 % (11.6-14.6); RBC Distribution Width SD 42.1 fl (35.1-43.9); Red Blood Count 4.66 M/mm3 (4.2-5.4); White Blood Count 6.2 K/mm3 (4.4-11.0)
[2023-01-19 10:12] LABS: ALB/GLOB Ratio 0.9 RATIO (0.9-2.4); AST(SGOT) 22 U/L (15-37); Alanine Aminotransfer ALT/SGPT 39 U/L (13-56); Albumin, Serum 3.6 g/dL (3.2-5.0); Alkaline Phosphatase 76 U/L (45-117); Anion Gap 4 (5-15); BUN 20 mg/dL (7-18); BUN/Creat Ratio 21.8 RATIO (10-20); Calcium,Total 8.8 mg/dL (8.5-10.1); Chloride 106 mmol/L (98-107); Cholesterol 159 mg/dL (200); Creatinine, Serum 0.92 mg/dL (0.55-1.02); EST Glomerular Filtration Rate 64 mL/min (>60); Est Glom Filt Rate - Afr Amer 78 mL/min (>60); Globulin 3.9 g/dL (2.2-4.2); Glucose 103 mg/dL (74-106); High Density Lipoprotein 51 mg/dL; Potassium 4.2 mmol/L (3.5-5.1); Protein, Total 7.5 g/dL (6.4-8.2); Sodium Level 139 mmol/L (136-145); Triglycerides 165 mg/dL; Very Low Density Lipoprotein 33 mg/dL (5-40)
[2023-01-19 10:40] LABS: Hemoglobin A1c 5.8 % (3.8-5.6)
== END | disposition home or self-care (01) ==
LOC: LAB 09:06
PROVIDERS: PCP Family Medicine; Referring Provider Family Medicine; Visit Provider Family Medicine
DX: I10 Essential (primary) hypertension (principal); E78.5 Hyperlipidemia, unspecified; K21.9 Gastro-esophageal reflux disease without esophagitis; R73.03 Prediabetes
CPT/HCPCS: 36415; 80053; 80061; 83036; 85025

== ENCOUNTER 2023-08-08 10:09 | Emergency (ER) | payer MEDICARE, SELFPAY ==
[2023-08-08 10:10] VITALS: BP 156/72; PULSE 94; RESP 16; TEMP 36.4; O2SAT 93; BMI 37.0
--- NOTE | 2023-08-08 11:16 | EDS_ITS ---
HPI History of Present Illness Chief Complaint: Upper Extremity Injury Narrative Narrative: 68-year-old female presenting with right shoulder pain. She has had since 2 Wednesday or . Patient states she did not take anything for pain except for yesterday she took a 200 mg ibuprofen. She states she thought she slept on it wrong initially and notes that it is progressively getting more stiff. She has pain in the right trapezius. No fevers or chills. No cough. No chest pilar n. No numbness or tingling. Patient states she has been sleeping in a lazy boy chair due to the pain. [facility] Medical History Anxiety Fall GERD (gastroesophageal reflux disease) HLD (hyperlipidemia) Hypertension Seizures Home Medications calcium carbonate 600 mg-vitamin D3 20 mcg (800 unit) tablet 1 ea PO DAILY supplement 02/19/20 [History Last Taken Unknown] citalopram 10 mg tablet 10 mg PO DAILY anxiety 02/19/20 [History Last Taken Unknown] levetiracetam 750 mg tablet 2 tab PO BID seizures 02/19/20 [History Last Taken 02/27/20 05:00] lisinopril 10 mg-hydrochlorothiazide 12.5 mg tablet 1 ea PO DAILY htn 02/19/20 [History Last Taken Unknown] vit C 250 mg-vit E 90 mg-zinc 40 mg-copper 1 [id number] capsule 1 ea PO BID eyes 02/19/20 [History Last Taken Unknown] atorvastatin 20 mg tablet (Lipitor) 20 mg PO DAILY 11/26/21 [History Last Taken Unknown] famotidine 20 mg tablet 20 mg PO DAILY reflux 11/26/21 [History Last Taken Unknown] hydrocodone-acetaminophen 5-325mg 5mg-325mg 1 tab PO Q6H PRN pain 3 days #12 TABLETS 08/08/23 [Rx Last Taken Unknown] Allergy/AdvReac Type Severity Reaction Status Date / Time No Known Allergies Allergy Verified 08/08/23 10:09 Social History Smoking Status: Never smoker ROS ROS ED Constitutional Constitutional ED: Denies chills, fever(s) or sweats Eyes Eyes: Denies blurry vision or change in vision ENT ENT ED: Denies ear pain or sore throat Cardiovascular Cardiovascular: Denies chest pain, palpitations or racing heartbeat Respiratory/Chest Respiratory/Chest: Denies cough, dyspnea or sputum Gastrointestinal Gastrointestinal: Denies abdominal pain, constipation, diarrhea, nausea or vomiting Genitourinary Genitourinary ED: Denies dysuria, hematuria or urinary frequency Musculoskeletal Musculoskeletal: Reports other Details: Right shoulder pain ; Denies arthralgias, myalgias or neck pain Integumentary Denies abscess, Abrasions or rash Neurologic Neurologic: Denies headache(s), paresthesias or weakness Psychiatric Psychiatric: Denies anxiety, depression, suicidal ideation or suicidal thoughts Endocrine Endocrinology: Denies polydipsia or polyuria EXAM Physical Exam Const Vital Signs: 08/08/23 10:10 Temperature 97.5 F L Temperature Source Temporal Pulse Rate 94 Respiratory Rate 16 Blood Pressure 156/72 H Blood Pressure Mean 100 Pulse Ox 93 Oxygen Delivery Method Room Air Positive well nourished General Appearance ED: NAD HEENT Reports moist mucous membranes normocephalic Eyes PERRL Neck full ROM Neck Narrative: No midline spinal tenderness, deformity, step-off. Chest Wall inspection of chest normal Resp normal respiratory effort Cardio regular rate and regular rhythm Extremity Extremity Narrative: Tenderness palpation over the right shoulder/bicipital groove. There is no posterior shoulder girdle pain. Tenderness palpation noted in the right trapezius as well. Limited range of motion in flexion/extension/abduction secondary to pain. Neurovascular intact throughout with brisk cap refill to all 5 fingers. Neuro oriented x3 and CN's II-XII intact bilaterally Sensorium / Orientation: alert MDM MDM MDM Narrative Medical decision making narrative: Patient with right shoulder pain. This is nontraumatic. She has some tendernes s on examination over the bicipital grooves and right trapezius. Patient given Toradol and right shoulder will be obtained. X-rays of the right shoulder my interpretation shows no acute fracture or subluxation. Radiology interprets as calcific tendinitis. Patient will be given [place] for pain at home. She will be given orthopedic follow-up. Return precautions were discussed. Impression: 1. Right shoulder tendinitis 2. Right shoulder strain Lab Data Attestation: I reviewed the patient's lab results. Discharge Plan Triage Chief Complaint: Upper Extremity Injury ED Provider: Robert Chacon Dx/Rx/DC Orders Instructions: ED Shoulder Sprain Prescriptions: New hydrocodone-acetaminophen 5-325 mg tablet 1 tab PO Q6H PRN (Reason: pain) 3 Days Qty: 12 0RF No Action atorvastatin [Lipitor] 20 mg tablet 20 mg PO DAILY citalopram 10 MG tablet 10 mg PO DAILY levetiracetam 750 MG tablet 2 tab PO BID lisinopril-hydrochlorothiazide 1 EACH tablet 1 ea PO DAILY calcium carbonate-vitamin D3 1 EACH tablet 1 ea PO DAILY vit C,O-Ov-ztwmc-lutein-zeaxan 1 EACH capsule 1 ea PO BID famotidine 20 mg tablet 20 mg PO DAILY Primary Care Provider: Anamika Chowdhury Referrals: Anamika Chowdhury MD [Primary Care Provider] - Disposition Disposition: Home, Self Care
[2023-08-08] MEDS: Ketorolac 15 MG/ML Vial IM (11:27)
--- NOTE | 2023-08-08 11:33 | RAD_ITS ---
EXAM: XR RIGHT SHOULDER COMPLETE, 2 OR MORE VIEWS CLINICAL INDICATION: pain TECHNIQUE: Two or more views of the right shoulder. COMPARISON: No relevant prior studies available. FINDINGS: BONES/JOINTS: Degenerative changes in the spine. No acute fracture. No subluxation. Normal alignment. No sclerotic or destructive changes observed. SOFT TISSUES: Calcific tendinopathy of the rotator cuff with amorphous calcific density in the soft tissues adjacent to the proximal humerus. No soft tissue swelling or gas. RAD/Shoulder min 2 Views IMPRESSION: 1. Calcific tendinopathy of the rotator cuff. 2. No fracture or dislocation. Electronically Signed: Reggie Gardner DO at 11:49 EDT ,
[2023-08-08 12:28] VITALS: BP 133/66; PULSE 87; RESP 16; TEMP 36.2; O2SAT 99
== END 2023-08-08 12:34 | disposition home or self-care (01) ==
PROVIDERS: Emergency Provider Student in an Organized Health Care Education/Training Program; PCP Family Medicine; Visit Provider Student in an Organized Health Care Education/Training Program
DX: M75.31 Calcific tendinitis of right shoulder (principal); S46.911A Strain of unspecified muscle, fascia and tendon at shoulder and upper arm level, right arm, initial encounter; X58.XXXA Exposure to other specified factors, initial encounter; I10 Essential (primary) hypertension; E78.5 Hyperlipidemia, unspecified; K21.9 Gastro-esophageal reflux disease without esophagitis; Z79.899 Other long term (current) drug therapy
CPT/HCPCS: 73030; 96372; 99282

== ENCOUNTER → 2023-10-21 | Outpatient (CLI) | payer MEDICARE, SELFPAY ==
--- NOTE | 2023-10-21 16:25 | BI_ITS ---
MAMMOGRAPHY - BILATERAL SCREENING REASON FOR EXAM: Female, 68 years old. Routine annual screening examination. PERTINENT HISTORY: Non-contributory. TECHNIQUE: Digital bilateral breast jimena (3D mammographic acquisition) in the CC and MLO projections. 2-D mediolateral oblique (MLO) and craniocaudad (CC) views of both breasts were obtained. CAD: Full Field Digital Mammography with Computer Added Detection was performed. COMPARISON: Comparison is made with prior study dated October 19, 2022 and October 15, 2021. FINDINGS: Breast Composition: The breasts are almost entirely fatty. There are no dominant masses or suspicious calcifications. A pacemaker battery pack is seen in the left axilla. No other significant abnormalities are identified. There has been no significant change since the prior study. BI/SCRN MAMM (CAD)W/JIMENA BILAT IMPRESSION: Stable bilateral screening mammogram. Yearly follow-up mammogram recommended. (A) ASSESSMENT CATEGORY: BIRADS Category 2: Benign. A letter regarding these results will be sent to the patient by the facility within 30 days. Approximately 10% of breast cancers are not detected by mammography. A normal mammogram should not delay biopsy of a clinically suspicious abnormality. [id number] Electronically Signed: Gadiel Garduno MD at 8:31 EDT ,
== END | disposition home or self-care (01) ==
LOC: OPBI 16:24
PROVIDERS: PCP Family Medicine; Referring Provider Family Medicine; Visit Provider Family Medicine
DX: Z12.31 Encounter for screening mammogram for malignant neoplasm of breast (principal)
CPT/HCPCS: 77063; 77067

== ENCOUNTER → 2024-02-04 | Outpatient (CLI) | payer MEDICARE, SELFPAY ==
[2024-02-04 09:55] LABS: Absolute Neutrophil Count 3.7 X10^3/uL (2.0-7.7); Basophil# 0.05 X10^3/uL; Basophil% 0.7 % (0-1); Eosinophil# 0.21 X10^3/uL; Hematocrit 44.7 % (37-47); Hemoglobin 14.7 g/dL (12.0-15.0); Mean Corp Hgb Conc 32.9 g/dL (32-36); Mean Corpuscular Hgb 30.5 pg (27.0-32.0); Mean Corpuscular Volume 92.7 fL (81-99); Mean Platelet Vol. 9.6 fl (6.2-12.0); NRBC Flagged by Analyzer 0 % (0-5); Platelet Count 225 K/mm3 (150-450); RBC Distribution Width CV 12.2 % (11.6-14.6); RBC Distribution Width SD 41.6 fl (35.1-43.9); Red Blood Count 4.82 M/mm3 (4.2-5.4)
[2024-02-04 10:17] LABS: ALB/GLOB Ratio 1.1 RATIO (0.9-2.4); AST(SGOT) 20 U/L (15-37); Alanine Aminotransfer ALT/SGPT 38 U/L (13-56); Albumin, Serum 3.8 g/dL (3.2-5.0); Alkaline Phosphatase 79 U/L (45-117); Anion Gap 7 (5-15); BUN 19 mg/dL (7-18); BUN/Creat Ratio 19.8 RATIO (10-20); Calcium,Total 9.4 mg/dL (8.5-10.1); Chloride 104 mmol/L (98-107); Cholesterol 151 mg/dL (200); Creatinine, Serum 0.96 mg/dL (0.55-1.02); EST Glomerular Filtration Rate 61 mL/min (>60); Est Glom Filt Rate - Afr Amer 74 mL/min (>60); Globulin 3.6 g/dL (2.2-4.2); Glucose 111 mg/dL (74-106); High Density Lipoprotein 55 mg/dL; Protein, Total 7.4 g/dL (6.4-8.2); Sodium Level 139 mmol/L (136-145); Triglycerides 169 mg/dL; Very Low Density Lipoprotein 34 mg/dL (5-40)
[2024-02-04 11:31] LABS: Hemoglobin A1c 5.8 % (3.8-5.6)
== END | disposition home or self-care (01) ==
LOC: LAB 09:33
PROVIDERS: PCP Family Medicine; Referring Provider Family Medicine; Visit Provider Family Medicine
DX: I10 Essential (primary) hypertension (principal); E78.5 Hyperlipidemia, unspecified; K21.9 Gastro-esophageal reflux disease without esophagitis; R73.03 Prediabetes
CPT/HCPCS: 36415; 80053; 80061; 83036; 85025

== ENCOUNTER → 2024-10-24 | Outpatient (CLI) | payer MEDICARE, SELFPAY ==
--- NOTE | 2024-10-24 17:02 | BI_ITS ---
EXAM: SCRN MAMM (CAD)W/JIMENA BILAT DATE: 10/24/2024 CLINICAL HISTORY: F, Age 69 y/o , SCREEN No family history. BREAST CANCER RISK ASSESSMENT: Not assessed. TECHNIQUE: Bilateral screening digital breast tomosynthesis with 2D and 3D images. Computer aided detection. COMPARISON: Prior exam(s) dated October 21, 2023.. FINDINGS: TISSUE DENSITY: The breast tissue is almost entirely fatty. Bilateral Breast Mammographic Findings: No significant masses, calcifications or other abnormalities are identified. A pacemaker battery pack is seen in the left axilla. No suspicious masses, areas of developing architectural distortion, or suspicious calcifications. There has been no significant interval change. BI/SCRN MAMM (CAD)W/JIMENA BILAT IMPRESSION: OVERALL FINAL ASSESSMENT: BIRADS 1 NEGATIVE RECOMMENDATION: Routine annual follow-up in 1 Year A letter with findings and recommendations will be mailed to the patient. Reading Location: [place] [id number]
--- OUTSIDE RECORDS SUMMARY | 2024-10-25 07:24 | XMS RPT_ITS | CCD ---
Author Organization [facility] Care Team Providers Care Operations Clerk Name Role Phone DALE, HUA T Unavailable Unavailable ODELLSLY W Unavailable Unavailable ODELLSLY W Unavailable Unavailable ODELLSLY MORRELL W Unavailable Unavailable SLY ODELL Unavailable Unavailable Lb Rangel MD Primary Care Provider [phone] Dominique Yoder MD Unavailable [phone] Lb Rangel MD Primary Care Provider [phone] Dominique Yoder DO Unavailable José Miguel Vang Primary Care Provider [phone] Lb Rangel MD Primary Care Provider [phone] Dominique Yoder DO Unavailable LITO MCKEON Attending Unavailable LB RANGEL Primary Care Unavailable Lb Rangel MD Primary Care Provider [phone] Anamika Chowdhury Referring Unavailable Anamika Chowdhury Attending Unavailable Anamika Chowdhury Primary Care Unavailable Anamika Chowdhury Primary Care Unavailable Anamika Chowdhury Referring Unavailable Anamika Chowdhury Attending Unavailable Medications Current Medications Medication Drug Class(es) Dates Sig (Normalized) Sig (Original) acetaminophen 325 mg / HYDROcodone bitartrate 5 mg oral tablet (1 source) Opioid Agonist Start: 08-08-2023 take 1 tablet by mouth every six hours Hydrocodone-Aceta minophen Active 1 TABLET PO EVERY 6 HOURS 12 3 August 08, 2023 Start: 08-08-2023 take 1 tablet by emma th every six hours Hydrocodone-Acetaminophen Active 1 TABLE T PO EVERY 6 HOURS 12 3 August 08, 2023 atorvastatin 20 mg oral tablet (11 sources) HMG-CoA Reductase Inhibitor Start: 11-26-2021 take 1 tablet by mouth once daily Atorvastatin (Lipitor) 20 mg tablet Active 20 MG PO DAILY November 26, 2021 12:00am Start: 02-19-2020 End: 11-05-2021 take 20 mg by mouth once daily Atorvastatin Discontinu ed 20 MG PO DAILY February 19, 2020 12:00am November 05, 2021 9:24am Comment on above: Take 20 mg by mouth once daily. Calcium (3 sources) Phosphate Binder, Calcium take 1 tablet by mouth once daily Zj-G8-mlu-zinc-copy messenger-m ang-boron (CALTRATE 600+D PLUS MINERALS) 600 mg calcium- 800 unit-40 mg chew Take 1 tablet by mouth once daily. Active take 1 tablet by emma th once daily Pd-V3-qfd-mvma-wqs-afpi-boron (CALTRATE 600+D PLUS MINERALS) 600 mg calcium- 800 unit-40 mg chew Take 1 tablet by mouth once daily. 0 Active Comment on above: Take 1 tablet by emma th once daily. 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 COMPOUNDED PRESCRIPTION (4 sources) Start: 1 COMPOUNDED PRESCRIPTION VNS (2008) Currently turned off 0 12/22/2010 Active Comment on above: VNS (2008) Currently turned off famotidine 20 mg oral tablet (11 sources) Histamine-2 Receptor Antagonist Start: 2 take 1 tablet by mouth once daily at bedtime famotidine (PEPCID) 20 mg tablet Take 1 tablet by mouth daily at bedtime. 05/23/2021 Active Start: 02-19-2020 End: 11-26-2021 take 20 mg by mouth twice daily Famotidine Discontinued 20 MG PO TWICE A DAY February 19, 2020 12:00am November 26, 2021 8:23am Comment on above: Take 1 tablet by emma daily at bedtime. hydroCHLOROthiazide 12.5 mg / lisinopril 10 mg oral tablet (8 sources) Thiazide Diuretic, Angiotensin Converting Enzyme Inhibitor Start: 02-19-2020 Lisinopril-Hydroch lorothiazide Active 1 EACH PO DAILY February 19, 2020 12:00am take 10-12.5 mg by mouth once li sinopril-hydrochlorothiazide (PRINZIDE,ZESTORETIC) 10-12.5 mg per tablet Take 1 tablet by mouth once daily. Active Comment on above: Take 1 tablet by emma once daily. 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 360 tablet 3 06/07/2023 Active Start: 02-19-2020 End: 04-02-2022 take 2 tablets by mouth twice daily Levetiracetam Active 2 TABLET PO TWICE A DAY February 19, 2020 12:00am Comment on above: Take 2 tablets by mo [facility] twice daily. Vit C,S-Sr-[place]scaw-Lutein-Jamison te (5 sources) Start: 02-19-2020 Vit C,G-Vr-Nwgoq-Lutein-Ze axan Active 1 EACH PO TWICE A DAY February 19, 2020 2:08pm Start: 02-19-2020 Vit C,E-Zn-Horse Racing Analyst ti-Hjaesh-Hcmpjw Active 1 EACH PO TWICE A DAY February 19, 2020 12:00am Completed/Discontinued Medications Medication Drug Class(es) Dates Sig (Normalized) Sig (Original) alendronic acid 70 mg oral tablet (6 sources) Bisphosphonate Start: 02-19-2020 End: 11-05-2021 Alendronate Discontinued 70 MG PO February 19, 2020 12:00am November 05, 2021 9:24am Comment on above: Take 70 mg by mouth once each week. Wednesday Problems Active Problems Problem Classification Problem Date Documented Da te Episodic/Chronic Epilepsy; convulsions (13 sources) Localization-relate d epilepsy; Translations: [Localization-relat ed (focal) (partial) symptomatic epilepsy and epileptic syndromes with simple partial seizures, not intractable, without status epilepticus] Onset: 07-05-2002 Resolved: 01-19-2017 Chronic Essential hypertension (9 sources) Essential hypertension; Translations: [Essential (primary) hypertension] Onset: 07-21-2016 07-21-2016 Chronic Fracture of upper limb (6 sources) Closed fracture radial styloid; Translations: [Nondisplaced fracture of left radial styloid process, initial encounter for closed fracture] 11-06-2021 Episodic Mood disorders (16 sources) Mood disorder; Translations: [Unspecified mood [affective] disorder] Onset: 10-28-2015 10-28-2015 Chronic Osteoporosis (8 sources) Osteoporosis; Translations: [Other osteoporosis without current pathological fracture] Onset: 01-19-2017 01-19-2017 Chronic Other congenital anomalies (8 sources) Congenital vascular nevus; Translations: [Congenital non-neoplastic nevus] Onset: 10-12-2006 02-25-2016 Chronic Other injuries and conditions due to external causes (2 sources) Injury of wrist; Translations: [Unspecified injury of left wrist, hand and finger(s), initial encounter] 11-06-2021 Episodic Other injuries and conditions due to external causes (1 source) Injury of left wrist; Translations: [Unspecified injury of left wrist, hand and finger(s), initial encounter] 11-06-2021 Episodic Other lower respiratory disease (5 sources) Cough; Translations: [Cough] 02-17-2021 Episodic Other nervous system disorders (8 sources) Mesial temporal lobe sclerosis; 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 10-28-2015 Chronic Other screening for suspected conditions (not mental disorders or infectious disease) (1 source) Encounter for screening mammogram for malignant neoplasm of breast; Translations: [Encounter for screening mammogram for malignant neoplasm of breast] Onset: 10-20-2024 Episodic Residual codes; unclassified (8 sources) Obstructive sleep apnea syndrome; Translations: [Obstructive sleep apnea (adult) (pediatric)] Onset: 10-28-2015 10-28-2015 Chronic Residual codes; unclassified (8 sources) Past history of procedure; Translations: [Presence of other specified functional implants] Onset: 10-28-2015 10-28-2015 Chronic Sprains and strains (1 source) Shoulder strain; Translations: [Strain of unspecified muscle, fascia and tendon at shoulder and upper arm level, unspecified arm, initial encounter] 08-08-2023 Episodic Unclassified (1 source) Unknown / UNK(Unknown) Onset: 09-22-2017 Unclassified (5 sources) Age AND/OR growth finding; Translations: [65 years of age or older] 02-18-2021 Viral infection (5 sources) Disease caused by 2019-nCoV; Translations: [COVID-19] 02-17-2021 Episodic Past or Other Problems Problem Classification Problem Date Documented Date Episodic/Chronic Anxiety disorders (8 sources) Organic anxiety disorder; 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] Onset: 07-21-2016 07-21-2016 Episodic Residual codes; unclassified (8 sources) H/O: febrile convulsions; Translations: [Personal history of other specified conditions] Onset: 10-28-2015 10-28-2015 Episodic Residual codes; unclassified (8 sources) FH: Epilepsy; Translations: [Family history of epilepsy and other diseases of the nervous system] Onset: 02-25-2016 02-25-2016 Episodic Residual codes; unclassified (8 sources) Memory impairment; Translations: [Other amnesia] Onset: 02-25-2016 02-25-2016 Episodic Unclassified (1 source) SCREENING Onset: 09-22-2017 Results Test Name Value Interpretation Reference Range Facility CBC W/Diff, Automatedon 01-16 Absolute Lymph 2.30 X10 3/uL Normal 0.83-4.51 [facility] Comment on above: Performed By: #### L 500.4050, L500.4100, L100.0100, [id number] #### [facility] [address] [place], [address] Absolute Neut 3.7 X10 3/uL Normal 2.0-7.7 [facility] Comment on above: Performed By: #### L 500.4050, L500.4100, L100.0100, [id number] #### [facility] [address] [place], [address] Basophils/100 WBC (Bld) 0.7 % Normal 0-1 [facility] Comment on above: Performed By: #### L 500.4050, L500.4100, L100.0100, [id number] #### [facility] [address] [place], [address] Eosinophils/100 WBC (Bld) 3.0 % Normal 0-5 [facility] Comment on above: Performed By: #### L 500.4050, L500.4100, L100.0100, [id number] #### [facility] [address] [place], [address] Erythrocyte distribution width (RBC) [Ratio] 12.2 % Normal 11.6-14.6 [facility] Comment on above: Performed By: #### L 500.4050, L500.4100, L100.0100, [id number] #### [facility] [address] [place], [address] Hematocrit (Bld) [Volume fraction] 44.7 % Normal 37-47 [facility] Comment on above: Performed By: #### L 500.4050, L500.4100, L100.0100, [id number] #### [facility] [address] [place], [address] Hemoglobin (Bld) [Mass/Vol] 14.7 g/dL Normal 12.0-15.0 [facility] Comment on above: Performed By: #### L 500.4050, L500.4100, L100.0100, [id number] #### [facility] [address] [place], [address] IG% 0.300 Normal 0.0-0.9 [facility] Comment on above: Result Comment: IG% - Immature Granulocytes (promyelocytes, myelocytes and metamyelocytes) > 1% indicates that a LEFT SHIFT is Present. Performed By: #### L 500.4050, L500.4100, L100.0100, [id number] #### [facility] [address] [place], [address] Lymphocytes/100 WBC (Bld) 33.0 % Normal 19-41 [facility] Comment on above: Performed By: #### L 500.4050, L500.4100, L100.0100, [id number] #### [facility] [address] [place], [address] MCH (RBC) [Entitic mass] 30.5 pg Normal 27.0-32.0 [facility] Comment on above: Performed By: #### L 500.4050, L500.4100, L100.0100, [id number] #### [facility] [address] [place], [address] MCHC (RBC) [Mass/Vol] 32.9 g/dL Normal 32-36 [facility] Comment on above: Performed By: #### L 500.4050, L500.4100, L100.0100, [id number] #### [facility] [address] [place], [address] MCV (RBC) [Entitic vol] 92.7 fL Normal 81-99 [facility] Comment on above: Performed By: #### L 500.4050, L500.4100, L100.0100, [id number] #### [facility] [address] [place], [address] Monocytes/100 WBC (Bld) 10.0 % Normal 0-10 [facility] Comment on above: Performed By: #### L 500.4050, L500.4100, L100.0100, [id number] #### [facility] [address] [place], [address] Neutrophils/100 WBC (Bld) 53.0 % Normal 47-70 [facility] Comment on above: Performed By: #### L 500.4050, L500.4100, L100.0100, [id number] #### [facility] [address] [place], [address] Nucleated RBC (Bld) [#/Vol] 0 10*3/uL Normal 0-5 [facility] Comment on above: Performed By: #### L 500.4050, L500.4100, L100.0100, [id number] #### [facility] [address] [place], [address] Platelet mean volume (Bld) [Entitic vol] 9.6 fL Normal 6.2-12.0 [facility] Comment on above: Performed By: #### L 500.4050, L500.4100, L100.0100, [id number] #### [facility] [address] [place], [address] Platelets (Bld) [#/Vol] 225 10*3/uL Normal 150-450 [facility] Comment on above: Performed By: #### L 500.4050, L500.4100, L100.0100, [id number] #### [facility] [address] [place], [address] RBC (Bld) [#/Vol] 4.82 10*6/uL Normal 4.2-5.4 [facility] Comment on above: Performed By: #### L 500.4050, L500.4100, L100.0100, [id number] #### [facility] [address] [place], [address] RDW SD 41.6 fl Normal 35.1-43.9 [facility] Comment on above: Performed By: #### L 500.4050, L500.4100, L100.0100, [id number] #### [facility] [address] [place], [address] WBC (Bld) [#/Vol] 7.0 10*3/uL Normal 4.4-11.0 [facility] Comment on above: Performed By: #### L 500.4050, L500.4100, L100.0100, [id number] #### [facility] [address] [place], [address] Comprehensive Metabolic Prof [facility] 02-04-2024 Albumin [Mass/Vol] 3.8 g/dL Normal 3.2-5.0 [facility] Comment on above: Performed By: #### L 500.4050, L500.4100, L100.0100, [id number] #### [facility] [address] [place], [address] Albumin/Globulin [Mass ratio] 1.1 {ratio} Normal 0.9-2.4 [facility] Comment on above: Performed By: #### L 500.4050, L500.4100, L100.0100, [id number] #### [facility] [address] [place], [address] ALK P 79 U/L Normal 45-117 [facility] Comment on above: Performed By: #### L 500.4050, L500.4100, L100.0100, [id number] #### [facility] [address] [place], [address] ALT [Catalytic activity/Vol] 38 U/L Normal 13-56 [facility] Comment on above: Performed By: #### L 500.4050, L500.4100, L100.0100, [id number] #### [facility] [address] [place], [address] AST [Catalytic activity/Vol] 20 U/L Normal 15-37 [facility] Comment on above: Performed By: #### L 500.4050, L500.4100, L100.0100, [id number] #### [facility] [address] [place], [address] Bilirubin [Mass/Vol] 0.60 mg/dL Normal 0.20-1.00 [facility] Comment on above: Result Comment: For patients on eltrombopag therapy, use of Dimension [place] TBIL is not recommended. Performed By: #### L 500.4050, L500.4100, L100.0100, [id number] #### [facility] [address] [place], [address] BUN/CRE 19.8 RATIO Normal 10-20 [facility] Comment on above: Performed By: #### L 500.4050, L500.4100, L100.0100, [id number] #### [facility] [address] [place], [address] CA,Total 9.4 mg/dL Normal 8.5-10.1 [facility] Comment on above: Performed By: #### L 500.4050, L500.4100, L100.0100, [id number] #### [facility] [address] [place], [address] Chloride [Moles/Vol] 104 mmol/L Normal 98-107 [facility] Comment on above: Performed By: #### L 500.4050, L500.4100, L100.0100, [id number] #### [facility] [address] [place], [address] CO2 [Moles/Vol] 28.0 mmol/L Normal 21.0-32.0 [facility] Comment on above: Performed By: #### L 500.4050, L500.4100, L100.0100, [id number] #### [facility] [address] [place], [address] Creatinine [Mass/Vol] 0.96 mg/dL Normal 0.55-1.02 [facility] Comment on above: Result Comment: The validity of the calculated GFR GFRAA in patients over 70 years has not been determined. Clinical correlation is essential. Performed By: #### L 500.4050, L500.4100, L100.0100, [id number] #### [facility] [address] [place], [address] EST GFR - AA 74 mL/min Normal >60 [facility] Comment on above: Result Comment: Afri can [place] GFR Calc Performed By: #### L 500.4050, L500.4100, L100.0100, [id number] #### [facility] [address] [place], [address] GAP 7 Normal 5-15 [facility] Comment on above: Performed By: #### L 500.4050, L500.4100, L100.0100, [id number] #### [facility] [address] [place], [address] GFR/1.73 sq M.predicted among non-blacks MDRD (S/P/Bld) [Vol rate/Area] 61 mL/min/{1.73_m2} Normal >60 [facility] Comment on above: Result Comment: Non- GFR Calc Performed By: #### L 500.4050, L500.4100, L100.0100, [id number] #### [facility] [address] [place], [address] Globulin (S) [Mass/Vol] 3.6 g/dL Normal 2.2-4.2 [facility] Comment on above: Performed By: #### L 500.4050, L500.4100, L100.0100, [id number] #### [facility] [address] [place], [address] Glucose [Mass/Vol] 111 mg/dL High 74-106 [facility] Comment on above: Result Comment: Fast ing Glucose result from 100 to 125 mg/dL suggests IMPAIRED HOMEOSTASIS per A.D.A. criteria. Performed By: #### L 500.4050, L500.4100, L100.0100, [id number] #### [facility] [address] [place], [address] Potassium [Moles/Vol] 4.0 mmol/L Normal 3.5-5.1 [facility] Comment on above: Performed By: #### L 500.4050, L500.4100, L100.0100, [id number] #### [facility] [address] [place], [address] Sodium [Moles/Vol] 139 mmol/L Normal 136-145 [facility] Comment on above: Performed By: #### L 500.4050, L500.4100, L100.0100, [id number] #### [facility] [address] [place], [address] T PROT 7.4 g/dL Normal 6.4-8.2 [facility] Comment on above: Performed By: #### L 500.4050, L500.4100, L100.0100, [id number] #### [facility] [address] [place], [address] Urea nitrogen [Mass/Vol] 19 mg/dL High 7-18 [facility] Comment on above: Performed By: #### L 500.4050, L500.4100, L100.0100, [id number] #### [facility] [address] [place], [address] Hemoglobin A1con 02-04-2024 HbA1c (Bld) [Mass fraction] 5.8 % High 3.8-5.6 [facility] Comment on above: Result Comment: Norm al < 5.7 % Prediabetic 5.7 - 6.4 % Diabetic >or= 6.5 % Please note range changes. Performed By: #### L 500.4050, L500.4100, L100.0100, [id number] #### [facility] [address] [place], [address] Lipid Profileon 02-04-2024 Cholesterol [Mass/Vol] 151 mg/dL Normal 200 [facility] Comment on above: Result Comment: <200 mg/dL Desirable 200-240 mg/dL Borderline >240 mg/dL High Risk Performed By: #### L 500.4050, L500.4100, L100.0100, [id number] #### [facility] [address] [place], [address] Cholesterol in HDL [Mass/Vol] 55 mg/dL Normal [facility] Comment on above: Result Comment: The drugs N-Acetylcysteine and Metamizole may falsely depress this assay. Reference Range HDL <40 mg/dL Low HDL Cholesterol HDL >or= 60 mg/dL High HDL Cholesterol Performed By: #### L 500.4050, L500.4100, L100.0100, [id number] #### [facility] [address] [place], [address] Cholesterol in LDL [Mass/Vol] 62 mg/dL Normal 0-130 [facility] Comment on above: Performed By: #### L 500.4050, L500.4100, L100.0100, [id number] #### [facility] [address] [place], [address] Cholesterol in VLDL [Mass/Vol] 34 mg/dL Normal 5-40 [facility] Comment on above: Performed By: #### L 500.4050, L500.4100, L100.0100, [id number] #### [facility] [address] [place], [address] Triglyceride [Mass/Vol] 169 mg/dL Normal [facility] Comment on above: Result Comment: The drugs N-Acetylcysteine and Metamizole may falsely depress this assay. Serum Triglycerides Reference Interval Normal <150 mg/dL Borderline high 150 - 199 mg/dL High 200 - 499 mg/dL Very High > or = 500 mg/dL Performed By: #### L 500.4050, L500.4100, L100.0100, [id number] #### [facility] [address] [place], [address] Absolute lymphocyte countOrd ered By: Anamika Chowdhury on 01-19-2023 Lymphocytes Auto (Unsp spec) [#/Vol] 2.08 10*3/uL 0.83-4.51 [facility] Basophil percentageOrdered B y: Anamika Chowdhury on 01-19-2023 Basophils/100 WBC (Bld) 0.5 % 0-1 [facility] Bilirubin [Mass/Vol] 0.40 mg/dL 0.20-1.00 [facility] Comment on above: For patients on eltr ombopag therapy, use of Dimension [place] TBIL is not recommended. Chloride [Moles/Vol] 106 mmol/L 98-107 [facility] Cholesterol [Mass/Vol] 159 mg/dL <200 [facility] Comment on above: <200 mg/dL Desirable 200-240 mg/dL Borderline >240 mg/dL High Risk Eosinophils/100 WBC (Bld) 3.7 % 0-5 [facility] Glucose [Mass/Vol] 103 mg/dL 74-106 [facility] Comment on above: Fasting Glucose resu lt from 100 to 125 mg/dL suggests IMPAIRED HOMEOSTASIS per A.D.A. criteria. Neutrophils (Bld) [#/Vol] 3.3 10*3/uL 2.0-7.7 [facility] Neutrophils/100 WBC (Bld) 53.3 % 47-70 [facility] Potassium [Moles/Vol] 4.2 mmol/L 3.5-5.1 [facility] Protein [Mass/Vol] 7.5 g/dL 6.4-8.2 [facility] Sodium [Moles/Vol] 139 mmol/L 136-145 [facility] Triglyceride [Mass/Vol] 165 mg/dL <199 [facility] Comment on above: The drugs N-Acetylcy steine and Metamizole may falsely depress this assay.Serum Triglycerides Reference Interval Normal <150 mg/dL Borderline high 150 - 199 mg/dL High 200 - 499 mg/dL Very High > or = 500 mg/dL WBC (Bld) [#/Vol] 6.2 10*3/uL 4.4-11.0 [facility] Blood erythrocytes count (nu mber/volume)Ordered By: Anamika Chowdhury on 01-19-2023 RBC (Bld) [#/Vol] 4.66 10*6/uL 4.2-5.4 [facility] Blood hemoglobin measurement (mass/volume)Ordered By: Anamika Chowdhury on 01-19-2023 Hemoglobin (Bld) [Mass/Vol] 14.5 g/dL 12.0-15.0 [facility] Blood lymphocytes/100 leukoc ytesOrdered By: Anamika Chowdhury on 01-19-2023 Lymphocytes/100 WBC (Bld) 33.5 % 19-41 [facility] Blood monocytes/100 leukocyt esOrdered By: Anamika Chowdhury on 01-19-2023 Monocytes/100 WBC (Bld) 8.7 % 0-10 [facility] Blood platelet mean volumeOr dered By: Anamika Chowdhury on 01-19-2023 Platelet mean volume (Bld) [Entitic vol] 9.7 fL 6.2-12.0 [facility] Determination of erythrocyte mean corpuscular volume (MCV)Ordered By: Anamika Chowdhury on 01-19-2023 MCV (RBC) [Entitic vol] 95.5 fL 81-99 [facility] Hematocrit Auto (Bld) [Volum e fraction]Ordered By: Anamika Chowdhury on 01-19-2023 Hematocrit (Bld) [Volume fraction] 44.5 % 37-47 [facility] - Chemistry and C hemistry - challengeOrdered By: Anamika Chowdhury on 01-19-2023 ALP [Catalytic activity/Vol] 76 U/L 45-117 [facility] ALT [Catalytic activity/Vol] 39 U/L 13-56 [facility] CO2 [Moles/Vol] 29.0 mmol/L 21.0-32.0 [facility] Center Globulin (S) [Mass/Vol] 3.9 g/dL 2.2-4.2 [facility] Urea nitrogen/Creatinine [Mass ratio] 21.8 mg/mg 10-20 [facility] Laboratory - Hematology and Cell countsOrdered By: Anamika Chowdhury on 01-19-2023 Erythrocyte distribution width (RBC) [Entitic vol] 42.1 fL 35.1-43.9 [facility] Erythrocyte distribution width (RBC) [Ratio] 12.1 % 11.6-14.6 [facility] Immature granulocytes/100 WBC (Bld) 0.300 % 0.0-0.9 [facility] Comment on above: IG% - Immature Granu locytes (promyelocytes, myelocytes and metamyelocytes) > 1% indicates that a LEFT SHIFT is Present. MCH (RBC) [Entitic mass] 31.1 pg 27.0-32.0 [facility] Nucleated RBC/100 WBC (Bld) [Ratio] 0 % 0-5 [facility] MCHC Auto (RBC) [Mass/Vol]Or dered By: Anamika Chowdhury on 01-19-2023 MCHC (RBC) [Mass/Vol] 32.6 g/dL 32-36 [facility] No Panel InformationOrdered By: Anamika Chowdhury on 01-19-2023 Estimated GFR (MDRD) Amer 78 mL/min >60 [facility] Comment on above: GFR Calc Estimated GFR (MDRD) Non-Af Amer 64 mL/min >60 [facility] Comment on above: Non- GFR Calc Platelets bldOrdered By: Akhil Chowdhury on 01-19-2023 Platelets (Bld) [#/Vol] 224 10*3/uL 150-450 [facility] Serum or plasma albumin johanne urement (mass/volume)Ordered By: Anamika Chowdhury on 01-19-2023 Albumin [Mass/Vol] 3.6 g/dL 3.2-5.0 [facility] Serum or plasma albumin/glob ulin mass ratioOrdered By: Anamika Chowdhury on 01-19-2023 Albumin/Globulin [Mass ratio] 0.9 {ratio} 0.9-2.4 [facility] Serum or plasma calcium johanne urement (mass/volume)Ordered By: Anamika Chowdhury on 01-19-2023 Calcium [Mass/Vol] 8.8 mg/dL 8.5-10.1 [facility] Serum or plasma cholesterol in HDL measurement (mass/volume)Ordered By: Anamika Chowdhury on 01-19-2023 Cholesterol in HDL [Mass/Vol] 51 mg/dL >40 [facility] Comment on above: The drugs N-Acetylcy steine and Metamizole may falsely depress this assay. Reference Range HDL <40 mg/dL Low HDL Cholesterol HDL >or= 60 mg/dL High HDL Cholesterol Serum or plasma cholesterol in VLDL measurement (mass/volume)Ordered By: Anamika Chowdhury on 01-19-2023 Cholesterol in VLDL [Mass/Vol] 33 mg/dL 5-40 [facility] Serum or plasma creatinine m easurement (mass/volume)Ordered By: Anamika Chowdhury on 01-19-2023 Creatinine [Mass/Vol] 0.92 mg/dL 0.55-1.02 [facility] Comment on above: The validity of the calculated GFR & GFRAA in patients over 70 years has not been determined. Clinical correlation is essential. Serum or plasma low density lipoprotein (LDL) cholesterol measurement (mass/volume)Ordered By: Anamika Chowdhury on 01-19-2023 Cholesterol in LDL [Mass/Vol] 75 mg/dL 0-130 [facility] Serum or plasma urea nitroge n measurement (mass/volume)Ordered By: Anamika Chowdhury on 01-19-2023 Urea nitrogen [Mass/Vol] 20 mg/dL 7-18 [facility] Thin prep Papanicolaou smear with manual screeningOrdered By: Anamika Chowdhury on 01-19-2023 Thin prep Papanicolaou smear with manual screening 22 U/L 15-37 [facility] Thin prep Papanicolaou smear with manual screening 4 5-15 [facility] Whole blood hemoglobin A1c/t otal hemoglobin ratio (mass fraction)Ordered By: Anamika Chowdhury on 01-19-2023 HbA1c (Bld) [Mass fraction] 5.8 % 3.8-5.6 [facility] Comment on above: Normal < 5.7 % Predi abetic 5.7 - 6.4 % Diabetic >or= 6.5 % Please note range changes. DICKSON DIAG DIRECT DIG IMAGE UN Ion 04-01-2018 DICKSON DIAG DIRECT DIG IMAGE UNI [facility] [place], [place] [address]Trhu: CASSY GOMEZPhys: SLY ODELL III, M.D.: 51 Age: 63 Sex: FAcct: [id number] Loc: RAD MAMMExam Date: 04/01/18 Status: REG CLIRadiology No.: [id number] Number: [id number] # [id number] MAMMO / DICKSON DIAG DIRECT DIG IMAGE UNI#[id number] - DICKSON DIAG DIRECT DIG IMAGE UNIUNILATERAL RIGHT DIGITAL DIAGNOSTIC MAMMOGRAM: 04/01/2018CLINICAL: Diagnostic Rokjdicej-Eqxvteexqs-S T5 mm Mass 6 o'clock Posterior Depth.Comparison is made to exams dated: 09/29/2017 ultrasound and 09/22/2017 mammogram- [facility] [place]. There are scattered fibroglandular elements inright breast.There is a 5 mm focal asymmetry in the right breast at 7 o'clock posteriordepth. This is less prominent and decreased in size.No other significant masses or calcifications are seen in the breast.IMPRESSION: BENIGNThe 5 mm focal asymmetry in the right breast at 7 o'clock posterior depthappears benign.There is no mammographic evidence of malignancy. Return to annual mammogramscreening schedule is recommended.( 9)The patient was notified of the results.Moises Saez/penrad: 018 11:07:42Imaging Technologist(s): Bernadine Rubio, RT(R)(M), [facility] Center[facility]: 2 Benign MAMMO REPORT SIGNATURE ON FILE Reported By: MOISES WATSON M.D. << Signature on File>> Reported By: MOISES WATSON M.D. Signed By: MOISES WATSON M.D.Tests performed at:[address] [phone] Normal [facility] US BREAST LIMITEDon 09-30-19 US BREAST LIMITED [address] [address]Zczr: Warner GOMEZ: SLY ODELL III, M.D.: [birth year] Age: 62 Sex: FAcct: [id number] Loc: RAD USExam Date: 09/29/17 Status: REG CLIRadiology No.: [id number] Number: [id number] # Type/[id number] US / US BREAST LIMITED RT#[id number] - US BREAST LIMITEDLIMITED ULTRASOUND OF RIGHT BREAST: 09/29/2017CLINICAL: Rt breast density BCC.Comparison is made to exam dated: 09/22/2017 mammogram - [facility].Real-time ultrasound of the right breast 6 o'clock region was performed on theareas of interest. Medina scale images of the real-time examination werereviewed.No abnormalities were seen sonographically in the right breast.IMPRESSION: PROBABLY BENIGNThere is no abnormality seen in the right breast to correspond with themammographic density at 6 o'clock in the posterior depth.A follow-up right mammogram in 6 months is recommended to demonstratestability.( 03/31/2018)The patient has been or will be contacted.Siva Mosley/leelee:10/01/19 18 09:29:28copy to: Lb Rangel MD, [facility] ph:[phone], fax: [phone] Technologist(s): Maru Vann, [facility] Breast Centerletter sent: BIRADS 3 - 6 mo Mammo Follow-upUltrasound BI-RADS: 3 Probably benign REPORT SIGNATURE ON FILE Reported By: SIVA NICOLE D.O. << Signature on File>> Reported By: SIVA NICOLE D.O. Signed By: SIVA NICOLE D.O.Tests performed at:[address] [phone] Normal [facility] HEP C Virus Abon 09-23-2017 HEP C Virus Ab <0.1 Normal 0.0-0.9 [facility] Comment on above: Result Comment: INFC E Result Units: s/co ratio Negative: < 0.8 Indeterminate: 0.8 - 0.9 Positive: > 0.9 The CDC recommends that a positive HCV antibody result be followed up with a HCV Nucleic Acid Amplification test (354639).Performed at: [facility] [id number] Director: Wesly Cobb PhD, Phone: [phone] Performed By: #### L 801.3865 ####[place] [address] CBCon 09-22-2017 Basophils Auto #/vol (Bld) 0.00 x10(3) Normal 0.00-0.10 [facility] Comment on above: Performed By: #### L 200.0010 ####[address] [address] Basophils/100 WBC Auto (Bld) 0.7 % Normal 0.0-1.0 [facility] Comment on above: Performed By: #### L 200.0010 ####ML [facility] QYMLBMYGUW646 [place] [address] Eosinophils Auto #/vol (Bld) 0.10 x10(3) Normal 0.00-0.54 [facility] Comment on above: Performed By: #### L 200.0010 ####[facility] [address] [place] [address] Eosinophils/100 WBC Auto (Bld) 1.2 % Normal 0.5-4.9 [facility] Comment on above: Performed By: #### L 200.0010 ####ML - ZOLCDJWSNO118 [place] [address] Erythrocyte distribution width Auto Ratio (RBC) 12.1 % Low 12.5-15.7 [facility] Comment on above: Performed By: #### L 200.0010 ####ML [facility] GJRWAIFOH[address] [place] [address] Hematocrit Auto Volume Fraction (Bld) 43.8 % Normal 36.0-48.0 [facility] Comment on above: Performed By: #### L 200.0010 ####ML - AIXLEKDKIB[address] [place] [address] Hemoglobin mass conc (Bld) 15.0 g/dL Normal 12.0-16.0 [facility] Comment on above: Performed By: #### L 200.0010 ####ML [facility] TPQQDIGTSE[address] [place] [address] Lymphocytes Auto #/vol (Bld) 1.60 x10(3) Normal 1.00-3.50 [facility] Comment on above: Performed By: #### L 200.0010 ####ML [facility] ZKNTYBKZWB[address] [place] [address] Lymphocytes/100 WBC Auto (Bld) 34.3 % Normal 16.0-48.0 [facility] Comment on above: Performed By: #### L 200.0010 ####ML [facility] NBHCZIQRWF[address] [place] [address] MCH Auto Entitic mass (RBC) 33.0 pg High 28.5-32.9 [facility] Comment on above: Performed By: #### L 200.0010 ####ML - CFYBYBDVCS[address] [place] [address] MCHC Auto mass conc (RBC) 34.2 g/dL Normal 33.0-36.0 [facility] Comment on above: Performed By: #### L 200.0010 ####ML [facility] ELBTJMTQQC[address] [place] [address] MCV Auto Entitic volume (RBC) 96.4 fL Normal 80.0-99.0 [facility] Comment on above: Performed By: #### L 200.0010 ####ML [facility] PWDZYSLNVJ[address] [place] [address] Monocytes Auto #/vol (Bld) 0.30 x10(3) Normal 0.30-0.80 [facility] Comment on above: Performed By: #### L 200.0010 ####ML [address] [address] Monocytes/100 WBC Auto (Bld) 7.3 % Normal 4.3-11.2 [facility] Comment on above: Performed By: #### L 200.0010 ####ML [address] [address] Neutrophils Auto #/vol (Bld) 2.60 x10(3) Normal 1.40-6.50 [facility] Comment on above: Performed By: #### L 200.0010 ####ML [address] [address] Neutrophils/100 WBC Auto (Bld) 56.5 % Normal 45.0-73.0 [facility] Comment on above: Performed By: #### L 200.0010 ####ML [address] [address] Platelet mean volume Auto Entitic volume (Bld) 8.0 fL Normal 7.5-9.5 [facility] Comment on above: Performed By: #### L 200.0010 ####ML [address] [address] Platelets Auto #/vol (Bld) 199 X10(3) Normal 150-450 [facility] Comment on above: Performed By: #### L 200.0010 ####ML [address] [address] RBC Auto #/vol (Bld) 4.54 x10(6) Normal 3.30-5.00 [facility] Comment on above: Performed By: #### L 200.0010 ####ML [address] [address] WBC Auto #/vol (Bld) 4.6 x10(3) Normal 4.5-10.0 [facility] Comment on above: Performed By: #### L 200.0010 ####ML [facility] ISBWDEIUGJ[address] [place] [address] CMPon 09-22-2017 A:G RATIO 1.55 Normal 1.1-2.5 [facility] Comment on above: Performed By: #### L 100.0005, L100.0040 ####ML - NFYEWQIJKE[address] [place] [address] Albumin mass conc 4.5 g/dL Normal 3.5-5.2 [facility] Comment on above: Performed By: #### L 100.0005, L100.0040 ####ML - NEPNEDQDGE[address] [place] [address] ALK. PHOS 65 U/L Normal 35-105 [facility] Comment on above: Performed By: #### L 100.0005, L100.0040 ####ML - HYXTJPMCVY[address] [place] [address] ALT enzyme act/vol 23 U/L Normal 5-33 [facility] Comment on above: Performed By: #### L 100.0005, L100.0040 ####ML - UDHKOZMOKR[address] [place] [address] Anion gap 3 molar conc 17.8 mmol/L Normal 15-22 U [facility] Comment on above: Performed By: #### L 100.0005, L100.0040 ####ML - WCRWUQFSHJ[address] [place] [address] AST enzyme act/vol 17 U/L Normal 5-32 [facility] Comment on above: Performed By: #### L 100.0005, L100.0040 ####[facility] TTBIPIZXIB[address] [place] [address] Bilirubin Ql (U) 0.4 mg/dL Normal 0.2-1.2 [facility] Comment on above: Performed By: #### L 100.0005, L100.0040 ####ML [facility] [address]YZJN[address] [place] [address] Calcium mass conc 9.4 mg/dL Normal 8.8-10.2 [facility] Comment on above: Performed By: #### L 100.0005, L100.0040 ####ML - RENVZTKTQG[address] [place] [address] Chloride molar conc 99 mmol/L Normal 98-107 [facility] Comment on above: Performed By: #### L 100.0005, L100.0040 ####ML - XLESHPNNAA[address] [place] [address] Creatinine mass conc 0.68 mg/dL Normal 0.50-0.90 [facility] Comment on above: Performed By: #### L 100.0005, L100.0040 ####ML - [address] [address] eGFR if AFR KARLA > 60 ml/min/1.73m2 Normal [facility] Comment on above: Result Comment: eGFR >= 60 Indicates normal kidney function. * eGFR IS AN ESTIMATE * (AFR KARLA = ) (non-AFR AM = NON-) MDRD calculation used in the eGFR should not be used to dose medications. For further limitations of the eGFR please refer to the Physician Website or the National Kidney Disease Education Program website (www.nkdep.nih.gov). Performed By: #### L 100.0005, L100.0040 ####ML - CJOAWBSQZO691 [place] [address] eGFR nonAFR Karla > 60 ml/Min/1.73m2 Normal [facility] Comment on above: Performed By: #### L 100.0005, L100.0040 ####ML - SBXWBACKWO[address] [place] [address] Globulin Calculated mass conc (S) 2.9 g/dL Normal 1.5-4.5 [facility] Comment on above: Performed By: #### L 100.0005, L100.0040 ####ML - FUVPYXZYCE[address] [place] [address] Glucose mass conc 97 mg/dL Normal 82-115 [facility] Comment on above: Performed By: #### L 100.0005, L100.0040 ####ML - RIBZATMEXO339 [place] [address] Potassium molar conc 3.8 mmol/L Normal 3.5-5.0 [facility] Comment on above: Performed By: #### L 100.0005, L100.0040 ####ML - GHTSJJZMLS430 [place] [address] Protein mass conc 7.4 g/dL Normal 6.4-8.3 [facility] Comment on above: Performed By: #### L 100.0005, L100.0040 ####ML - OEAYPRDFRL912 [place] [address] Sodium molar conc 141 mmol/L Normal 135-145 [facility] Comment on above: Performed By: #### L 100.0005, L100.0040 ####ML - XIDDZXXHZS130 [place] [address] TCO2 28 mmol/L Normal 22-29 [facility] Comment on above: Performed By: #### L 100.0005, L100.0040 ####ML - DRRWFUUQJZ595 [place] [address] Urea nitrogen mass conc 13 mg/dL Normal 8-23 [facility] Comment on above: Performed By: #### L 100.0005, L100.0040 ####ML - SZWMHCTKCZ448 [place] [address] LIPID PANELon 09-22-2017 Cholesterol in HDL mass conc 70 mg/dL Normal [facility] Comment on above: Result Comment: Astrid onal Cholesterol Education Program (NCEP) guidelines:<40 mg/dL: Low HDL-Cholesterol(major risk factor for CHD)> or = 60 mg/dL: High HDL-Cholesterol(negative risk factor for CHD)HDL-cholesterol is affected by a number of factors,e.g., smoking, exercise, hormones, sex, and age.4th Generation Test; Results may be approximately 7% lowerthan previous values. Performed By: #### L 100.0005, L100.0040 ####ML - NBIIMTSVZF869 [place] [address] Cholesterol in LDL mass conc 83 mg/dL Normal [facility] Comment on above: Result Comment: LDL: OPTIMAL FOR PEOPLE AT VERY HIGH RISK <70 OPTIMAL <100 NEAR OPTIMAL 100-129 BORDERLINE HIGH 130-159 HIGH 160-189 VERY HIGH >=190Source: 2008 NCEP ATP III, ADA GuidelinesReviewed: August, Performed By: #### L 100.0005, L100.0040 ####ML - OT[address]LFZRSV[address] [place] [address] Cholesterol in LDL/Cholesterol in HDL mass ratio 1.2 Normal [facility] Comment on above: Performed By: #### L 100.0005, L100.0040 ####ML - [address] [address] Cholesterol in VLDL mass conc 17 mg/dL Normal 6-40 [facility] Comment on above: Performed By: #### L 100.0005, L100.0040 ####ML - XIQVOXU[address] [place] [address] Cholesterol mass conc 170 mg/dL Normal 130-200 [facility] Comment on above: Performed By: #### L 100.0005, L100.0040 ####ML - WGTMTVNMGN[address] [place] [address] Triglyceride mass conc 87 mg/dL Normal [facility] Comment on above: Result Comment: TRIG : DESIRABLE: <150 mg/dL Performed By: #### L 100.0005, L100.0040 ####ML - YHID[address]IT[address] [place] [address] SCREEN DIGITAL BREAST TOMOon 09-22-2017 SCREEN DIGITAL BREAST JIMENA [address] [address]Swop: Warner GOMEZ: SLY ODELL III, M.D.: [birth year] Age: 62 Sex: FAcct: [id number] Loc: RAD MAMMExam Date: 09/22/17 Status: REG CLIRadiology No.: [id number] Number: [id number] # [id number] MAMMO / SCREEN DIGITAL BREAST JIMENA#[id number] - SCREEN DIGITAL BREAST TOMOBILATERAL DIGITAL SCREENING MAMMOGRAM 3D/2D WITH CAD: 09/22/2017CLINICAL: Annual Screening.Comparison is made to exam dated: 09/21/2016 [facility]. There are scattered fibroglandular elements in both breasts.Current study was also evaluated with a Computer Aided Detection (CAD) system.There is a 5 mm oval mass with a circumscribed margin in the right breast at 6o'clock posterior depth. This is seen in additional views.No other significant masses, calcifications, or other findings are seen ineither breast.IMPRESSION: INCOMPLETE: NEEDS ADDITIONAL IMAGING EVALUATIONThe 5 mm oval mass in the right breast at 6 o'clock posterior depth appearsindeterminate. An ultrasound is recommended.The patient has been or will be contacted.Lito dAam M.D.ab/:09/22/2017 13:30:56Imaging Technologist(s): MICHEL Joseph)(Josué), [facility] Breast Centerletter sent: BIRADS 0 - AbnormalBI-RADS: 0 REPORT SIGNATURE ON FILE Reported By: LITO ADAM M.D. << Signature on File>> Reported By: LITO ADAM M.D. Signed By: LITO ADAM M.D.Tests performed at:[address] [phone] Normal [facility] PAP(Lb),rflx Hion 08-03-2017 DIAGNOSIS Normal [facility] Comment on above: Order Comment: Speci men Comment: [id number] Comment: No. of containers..01 ThinPrep Vial Result Comment: NEGA TIVE FOR INTRAEPITHELIAL LESION AND MALIGNANCY. Performed By: #### L 801.4000 ####[place] [address] Note Normal [facility] Comment on above: Order Comment: Speci men Comment: [id number] Comment: No. of containers..01 ThinPrep Vial Result Comment: The Pap smear is a screening test designed to aid in thedetection of premalignant and malignant conditions of theuterine cervix. It is not a diagnostic procedure andshould not be used as the sole means of detecting cervicalcancer. Both false-positive and false-negative reports dooccur. Performed By: #### L 801.4000 ####[place] [address] Performed By [facility] Comment on above: Order Comment: Speci men Comment: [id number] Comment: No. of containers..01 ThinPrep Vial Result Comment: Milagros Zheng, Relief Driller (ASCP) Performed By: #### L 801.4000 ####[place] [address] Spec Adequacy [facility] Comment on above: Order Comment: [facility] Comment: [id number] Comment: No. of containers..01 ThinPrep Vial Result Comment: Sati sfactory for evaluation. Endocervical and/or squamous metaplasticcells (endocervical component) are present. Performed By: #### L 801.4000 ####[place] [address] Test Ordered Pap(Lb), rflx HPV Hi Normal [facility] Comment on above: Order Comment: Speci men Comment: [id number] Comment: No. of containers..01 ThinPrep Vial Performed By: #### L 801.4000 ####[place] [address] . . Normal . [facility] Comment on above: Order Comment: [facility] Comment: [id number] Comment: No. of containers..01 ThinPrep Vial Performed By: #### L 801.4000 ####[place] [address] . [facility] Comment on above: Order Comment: [facility] Comment: [id number] Comment: No. of containers..01 ThinPrep Vial Result Comment: The HPV DNA reflex criteria were not met with this specimenresult therefore, no HPV testing was performed.Performed at: [address], [place] [id number] Director: Kyung Mathews MD, Phone: [phone] Performed By: #### L 801.4000 ####[place] [address] SURGICALon 03-05-2017 SURGICAL Cecum - CECAL POLYP [id number] DESCRIPTION: Labeled cecal polyp X2. Received in formalin are multiple fragments of white to pink-tansoft tissue measuring 2.5 x 1.0 x 0.3 cm. The largest fragment is inked black andbisected. Specimen is submitted in toto in one cassette. ANNIKA/mary jo ----MICROSCOPIC DESCRIPTION: Slides reviewed. ANNIKA/jesus FINAL DIAGNOSIS: COLON, CECAL POLYP X2, BIOPSY: FRAGMENTS OF SERRATED ADENOMAS. Dictated by: FERNANDA VANN M.D.CLINICAL DATA: PROCEDURE: Colonoscopy PRE-OP: Constipation, rectal bleeding and abdominal pain POST-OP: Same, plus colon polypsHISTORY: N/A Signed *Electronically Signed* FERNANDA VANN M.D. 03/09/17 1617 ---- Normal [facility] Comment on above: Performed By: #### P -S ####ML - [facility] XVYVKOTONV[address] [place] [address] SURGICAL PATHOLOGY, CONVERTE Don 11-14-2014 [facility] SURGICAL PATHOLOGY, CONVERTE Don 09-18-2010 [facility] CYTOLOGY WOODWORKER HELPER, CONVERTEDon [facility] CYTOLOGY WOODWORKER HELPER, CONVERTEDon [facility] CYTOLOGY WOODWORKER HELPER, CONVERTEDon [facility] Vital Signs Date Time Vital Sign Value Performing Clinician Faci lity 08-08-2023 12:28-0400 Body temperature 97.2 [degF] [facility] 08-08-2023 12:28-0400 Diastolic blood pressure 66 mm[Hg] [facility] 08-08-2023 12:28-0400 Heart rate 87 /min [facility] [place] 08-08-2023 12:28-0400 Respiratory rate 16 /min [facility] 08-08-2023 12:28-0400 SaO2% (BldA) [Mass fraction] 99 % [facility] 08-08-2023 12:28-0400 Systolic blood pressure 133 mm[Hg] [facility] 08-08-2023 10:10-0400 Body height 165.1 cm [facility] [place] 08-08-2023 10:10-0400 Body mass index (BMI) [Ratio] 37 kg/m2 [facility] 08-08-2023 10:10-0400 Body weight 100.92 kg [facility] [place] 10-29-2021 17:49-0400 Body height 165.1 cm [facility] [place] Work Phone: 10-29-2021 17:49-0400 Body mass index (BMI) [Ratio] 33 kg/m2 [facility] Work Phone: 10-29-2021 17:49-0400 Body temperature 98.2 [degF] [facility] Work Phone: 10-29-2021 17:49-0400 Body weight 90 kg [facility] [place] Work Phone: 10-29-2021 17:49-0400 Diastolic blood pressure 75 mm[Hg] [facility] Work Phone: 10-29-2021 17:49-0400 Heart rate 70 /min [facility] [place] Work Phone: 10-29-2021 17:49-0400 Respiratory rate 16 /min [facility] Work Phone: 10-29-2021 17:49-0400 SaO2% (BldA) [Mass fraction] 97 % [facility] Work Phone: 10-29-2021 17:49-0400 Systolic blood pressure 156 mm[Hg] [facility] Work Phone: Encounters Encounter Date Encounter Type Care Provider Facility Start: 10-24-2024 ambulatory [facility] Facility: [facility] Start: 07-27-2024 End: 07-27-2024 Refill Lito Mckeon PA-C Work Phone: Neurology Comment on above: Refill Request Start: 02-04-2024 End: 02-04-2024 ambulatory [facility] Facility:[facility] Start: 08-08-2023 End: 08-08-2023 Emergency department patient visit [facility] Work Phone: Start: 06-07-2023 End: 06-07-2023 ambulatory LITO MCKEON Facility:[facility] Start: 01-19-2023 End: 01-19-2023 [facility]ulatory [facility] [facility] Work Phone: Start: 01-19-2023 End: 01-19-2023 Patient encounter procedure [facility] Work Phone: Start: 10-19-2022 End: 10-19-2022 ambulatory [facility] Work Phone: Start: 10-19-2022 End: 10-19-2022 Patient encounter procedure [facility] Start: 04-02-2022 Refill James floyd MD Work Phone: Neurology Comment on above: Refill Request Start: 10-29-2021 End: 10-29-2021 Emergency department patient visit [facility] Start: 10-15-2021 End: 10-15-2021 Patient encounter procedure [facility] Start: 10-01-2021 End: 10-01-2021 ambulatory Luisana Myers ORTHODONTIC ASSISTANT.RESEARCH STATISTICIAN Work Phone: Neurology Comment on above: Focal epilepsy (HCC) (Primary Dx) Start: 10-01-2021 End: 10-01-2021 Telemedicine consultation with patient Luisana Myers ORTHODONTIC ASSISTANT.RESEARCH STATISTICIAN Work Phone: [facility] Start: 04-01-2018 Patient encounter procedure SLY ODELL Facility:[facility] Start: 09-29-2017 Patient encounter procedure SLY ODELL Facility:[facility] Start: 09-22-2017 Patient encounter procedure SLY ODELL Facility:[facility] Start: 07-29-2017 Ambulatory SLY ODELL Facil ity:[facility] Start: 03-05-2017 Ambulatory HUA DALE Facility :[facility] Start: 11-15-2014 Documentation procedure Hua Dale MD Work Phone: [facility] Start: 11-15-2014 Historic EMR Hua mcdonnell MD Work Phone: [facility] Start: 09-18-2010 Documentation procedure Jorge Bra vo [facility] Start: 09-18-2010 Historic EMR Favian Burrellvo [facility] Start: 05-29-2008 Documentation procedure Sly Odell III, MD Work Phone: [facility] Start: 05-29-2008 Historic EMR Sly Odell MD Work Phone: [facility] Start: 05-27-2007 Documentation procedure Sly Odell III, MD Work Phone: [facility] Start: 05-27-2007 Historic EMR Sly Odell MD Work Phone: [facility] Start: 05-11-2005 Documentation procedure Sly Odell III, MD Work Phone: [facility] Start: 05-11-2005 Historic EMR Sly Odell MD Work Phone: [facility] Procedures Date Procedure Procedure Detail Performing Clinician Start: 08-08-2023 Plain X-ray of shoulder Start: 10-19-2022 Screening mammography Start: 10-29-2021 Plain x-ray of hand Start: 10-29-2021 Plain x-ray of wrist Start: 10-29-2021 X-ray of radius and ulna Start: 10-29-2021 Plain x-ray of elbow Start: 10-15-2021 Screening mammography Start: 09-22-2017 Lipid 1996 panel - S maddi or Plasma Sly Odell III, MD Work Phone: Start: 09-22-2017 Mammography Luisana Myers ORTHODONTIC ASSISTANT.RESEARCH STATISTICIAN Work Phone: Start: 01-19-2017 H/O: surgery S/P lobectomy of brain Luisana Myers ORTHODONTIC ASSISTANT.RESEARCH STATISTICIAN Work Phone: Start: 11-14-2014 SURGICAL PATHOLOGY, CONVERTED Hua Dale MD Work Phone: Start: 09-18-2010 SURGICAL PATHOLOGY, CONVERTED Favian Feldman Start: 05-28-2008 CYTOLOGY WOODWORKER HELPER, CONVERTED Sly Odell MD Work Phone: Start: 05-25-2007 CYTOLOGY WOODWORKER HELPER, CONVERTED Sly Odell MD Work Phone: Start: 05-07-2005 CYTOLOGY WOODWORKER HELPER, CONVERTED Sly Odell MD Work Phone: Plan of Treatment Date Care Activity Detail Author Start: 01-15-2028 RSV Vaccine (1 - 1-dose 75+ series) RSV Vaccine (1 - 1-dose 75+ series) [facility] Start: 05-17-2024 Advance Directive Discussion Advance Directive Discussion [facility] Start: 01-16-2024 Covid-19 Vaccine ( season) Covid-19 Vaccine ( season) [facility] Start: 01-16-2024 Influenza vaccination Influenza Vaccine (#1) [facility] Start: 01-15-2023 Influenza vaccination Influ[facility] Start: 09-22-2022 Lipid 1996 panel - Serum or Plasma Lipid Screening [facility] Start: 09-22-2022 Lipid panel Lipid Screening [facility] Start: 09-22-2022 LIPID SCREEN LIPID SCREEN [facility] Start: 05-17-2022 Advance Directive Discussion Advance Directive Discussion [facility] Start: 01-15-2022 Influenza vaccination [facility] Start: 05-17-2021 ADVANCE DIRECTIVE DISCUSSION ADVANCE DIRECTIVE DISCUSSION [facility] Start: 09-22-2020 DIABETES SCREEN DIABETES SCREEN [facility] Start: 09-22-2020 Diabetes Screening Diabetes Screening [facility] Start: 04-22-2019 Pneumococcal Vaccine: 50+ (2 of 2 - PCV) Pneumococcal Vaccine: 50+ (2 of 2 - PCV) [facility] Start: 09-22-2018 Mammography [facility] Start: 09-22-2018 Screening for malignant neoplasm of breast Mammogram Screening [facility] Start: 2018 BONE DENSITY BONE DENSITY [facility] Start: 2018 Bone Density Screening Bone Density Screening [facility] Start: 2018 Pneumococcal Vaccine: 65+ (1 - PCV) Pneumococcal Vaccine: 65+ (1 - PCV) [facility] Start: 2018 PNEUMOCOCCAL: 65+ (1 - PCV) PNEUMOCOCCAL: 65+ (1 - PCV) [facility] Start: 2018 PNEUMOVAX AGE 65 AND OVER WITH 5YR LOOKBACK (#1) PNEUMOVAX AGE 65 AND OVER WITH 5YR LOOKBACK (#1) [facility] Start: 2018 Screening for osteoporosis Bone Density Screening [facility] Start: 2003 SHINGRIX VACCINE (1 of 2) SHINGRIX VACCINE (1 of 2) [facility] Start: 1998 COLOGUARD (FIT-DNA) COLOGUARD (FIT-DNA) [facility] Start: 1998 Colonoscopy COLONOSCOPY [facility] Start: 1998 COLORECTAL CANCER SCREENING COLORECTAL CANCER SCREENING [facility] Start: [address] COLONOGRAPHY [facility] Start: 1998 FECAL OCCULT BLOOD FECAL OCCULT BLOOD [facility] Start: 1998 Screening for malignant neoplasm of colon [facility] Start: 1998 SIGMOIDOSCOPY SIGMOIDOSCOPY [facility] Start: 01-15-1972 Urine microalbumin profile [facility] Start: 1971 ANNUAL PCP TEAM CHRONIC DISEASE VISIT ANNUAL PCP TEAM CHRONIC DISEASE VISIT [facility] Start: 1971 BP CONTROLLED (<130/80) BP CONTROLLED (<130/80) [facility] Start: 1958 COVID-19 VACCINE (#1) COVID-19 VACCINE (#1) [facility] Start: 1955 COVID-19 VACCINE (#1) COVID-19 VACCINE (#1) [facility] Patient Education [facility] Work Phone: Patient referral [facility] Work Phone: Immunizations Immunization Date Immunization Notes Care Provider Fa sunny 02-20-2009 influenza virus vacc ine, unspecified formulation Sly Odell III, MD Work Phone: [facility] Payers Date Payer Category Payer Self-pay [id number] 2015 Medicare [id number] 2015 Medicare (Managed Care) MORENA JAMES O [id number] 2015 Unknown MORENA MILLAN S AND BLUE SHIELD ANTHCANDI MEDIBLUE O [id number] 2015-Present [phone] [address] [place] [address] [facility] [id number] Medicare [id number] Unknown [id number] Unknown [id number] Unknown [id number] Unknown [id number] Unknown [id number] Social History Date Type Detail Facility Start: 12-22-2010 Tobacco smoking stat us MNIS Never smoked tobacco [facility] Start: 12-22-2010 Tobacco use and exposure Smokeless tobacco non-user [facility] Start: 08-08-2012 End: 02-15-2020 Alcohol intake Current non-drinker of alcohol (finding) [facility] Start: 1955 Sex Assigned At Not on file [facility] Start: 02-18-2021 End: 08-08-2023 Tobacco smoking status MNIS Unknown if ever smoked [facility] Start: 1955 Sex Assigned At Female W [facility] Start: 02-15-2020 End: 06-07-2023 History of Social function [facility] Start: 02-15-2020 End: 06-07-2023 Tobacco use panel [facility] Adult Depression Screening Assessment 0 [facility] Start: 01-16-2020 End: 02-15-2020 Exposure to SARS-CoV-2 (event) Not sure [facility] Medical Equipment Procedure Code Equipment Code Equipment Original Text Equipment Identifier Dates Patch Duramatrix Collagen Matrix 3x3in Dural Conformable Resorbable - [id number] Start: 07-27-2016 Plate Low Profil e Titanium 12mm Bone 2 Hole Bar 1.5mm Screw Nonsterile - [id number] Start: 07-27-2016 Screw 1.5mm 4mm Bone Self Drill Cross Pin Craniomaxillofacial - [id number] Start: 07-27-2016 Functional Status Date Assessment Result Facility 07-31-2016 Are you deaf, or do you have serious difficulty hearing No 07/31/2016 12:22 PM EDT Angeline Strickland, MADONNA No [facility] Work Phone: 07-31-2016 Are you blind, or do you have serious difficulty seeing, even when wearing glasses No 07/31/2016 12:22 PM EDT Angeline Strickland RN No [facility] 07-31-2016 Do you have serious difficulty walking or climbing stairs No 07/31/2016 12:22 PM EDT Angeline Strickland RN No [facility] 07-31-2016 Do you have difficul ty dressing or bathing No 07/31/2016 12:22 PM EDT Angeline Strickland RN No [facility] 07-31-2016 Because of a physica l, mental, or emotional condition, do you have difficulty doing errands alone such as visiting a physician's office or shopping No 07/31/2016 12:22 PM EDT Angeline Strickland RN No [facility] Mental Status Date Assessment Result Facility 07-31-2016 Because of a physica l, mental, or emotional condition, do you have serious difficulty concentrating, remembering, or making decisions No 07/31/2016 12:22 PM EDT Angeline Strickland RN No [facility] Clinical Notes 07-27-2016 to 07-27-2024 Telephone Encounter - Melody Garay APRN.CNP - 07/27/2024 4:49 PM EDTTelephone Encounter - Melody Garay APRN.CNP - 07/27/2024 4:49 PM Zaida Myers APRN.CNP - 10/01/2021 2:57 PM EDT Note Date & Type Note Facility 07-27-2024 Telephone encount er Note The following approved medication requests have been transmitted electronically. Requested Prescriptions Signed Prescriptions Disp Refills citalopram hydrobromide (CELEXA) 10 mg tablet 90 tablet 0 Sig: TAKE 1 TABLET BY MOUTH ONCE DAILY IN THE MORNING Authorizing Provider: MELODY GARAY APRN.RESEARCH STATISTICIAN [facility] 07-27-2024 Miscellaneous Notes Formattin g of this note is different from the original. The following approved medication requests have been transmitted electronically. Requested Prescriptions Signed Prescriptions Disp Refills citalopram hydrobromide (CELEXA) 10 mg tablet 90 tablet 0 Sig: TAKE 1 TABLET BY MOUTH ONCE DAILY IN THE MORNING Authorizing Provider: MELODY GARAY APRN.CNP Prescription Refill: Requested by: pharmacy Please E-Scribe Caller Contact Number: electronic Pharmacy Name: [facility] Pharmacy Number: [phone] Generic/ brand: Generic 30 or 90 day supply requested: 90 Last appointment: 06/07/23 Next Appointment: None, Patient needs appointment, sent message to S51 to contact patient to schedule annual visit. Patient of Dr. Harpreet Gomez [id number] [facility] [address] documented in this encounter [facility] 07-27-2024 Telephone encount er Note Prescription Refill: Requested by: pharmacy Please E-Scribe Caller Contact Number: electronic Pharmacy Name: [facility] Pharmacy Number: [phone] Generic/ brand: Generic 30 or 90 day supply requested: 90 Last appointment: 06/07/23 Next Appointment: None, Patient needs appointment, sent message to S51 to contact patient to schedule annual visit. [facility] Harpreet Gomez [id number] [facility] [address] [facility] 06-08-2023 Note HNO ID: [id number] Author: LITO MCKEON PA-C Service: ? Author Type: Physician Guest Services Coordinator Type: Progress Notes Filed: 06/08/2023 09:12 Note Text: [facility] VIRTUAL VISIT I have communicated my name and active licensure. The patient's identity and physical location were verified at the time of this visit. Either the patient or their legal vendor representatives has been informed of the risks and benefits of -- and alternatives to -- treatment through a remote evaluation and consents to proceed with the evaluation remotely. HISTORY OF PRESENT ILLNESS: Cassy Gomez is a 68 year old RH female who is diagnosed with focal seizures, and presents today for six month virtual visit. They are an established patient of Dr. Mullins's and was last seen on 10/01/2021 by Luisana Myers CNP. 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 Seizures: None AED's: Keppra 750mg, 2 pills BID Celexa 10mg daily Occupation: Retired. Driving: no Mood: good. On Celexa Memory: good CURRENT OUTPATIENT MEDICATIONS: Current Outpatient Medications Medication Sig levETIRAcetam (KEPPRA) 750 mg tablet Take 2 tablets by mouth two times a day. citalopram hydrobromide (CELEXA) 10 mg tablet Take 1 tablet by mouth every morning. famotidine (PEPCID) 20 mg tablet Take 1 tablet by mouth daily at bedtime. lisinopril-hydrochlorothiazide (PRINZIDE,ZESTORETIC) 10-12.5 mg per tablet Take 1 tablet by mouth once daily. Po-L7-grr-ghyt-vfb-mxkt-boron (CALTRATE 600+D PLUS MINERALS) 600 mg calcium- 800 unit-40 mg chew Take 1 tablet by mouth once daily. atorvastatin (LIPITOR) 20 mg tablet Take 20 mg by mouth once daily. COMPOUNDED PRESCRIPTION VNS (2008) Currently turned off No current facility-administered medications for this visit. PAST MEDICAL HISTORY Diagnosis Date Depression HTN (hypertension) Localization-related (focal) (partial) epilepsy and epileptic syndromes with simple partial seizures, with intractable epilepsy OA (osteoarthritis) MAGDALENO (obstructive sleep apnea) Port - wine birthmark right religious Tinnitus of left ear PAST SURGICAL HISTORY Procedure Laterality Date CHOLECYSTECTOMY HX 01/28/2017 PAST SURGICAL HISTORY OF FAMILY HISTORY Problem Relation Age of Onset Seizures Other paternal great uncle- grandmal ASSESSMENT: Cassy Gomez is a 68 year old RH female with history of well controlled seizures. Remains on Keppra. Mood is good.No complaints or new health issues. Continue with plan.. PLAN: - LABS: - Medications: -continue with Keppra 750mg, 2 BID, rfs -continue with Celexa 10mg daily, rfs -continue with all daily medications -Follow all seizure precautions - Consults: none - Follow up: 6-[address] Mullins or VERONICA I spent 20 minutes during this encounter counseling on medications and lifestyle. Lito Mckeon PA-C [facility] 04-02-2022 Miscellaneous Notes Formattin g of this note is different from the original. The following approved medication requests have been transmitted electronically. Requested Prescriptions Signed Prescriptions Disp Refills levETIRAcetam (KEPPRA) 750 mg tablet 360 tablet 3 Sig: Take 2 tablets by mouth twice daily. Authorizing Provider: MELODY GARAY citalopram hydrobromide (CELEXA) 10 mg tablet 90 tablet 3 Sig: Take 1 tablet by mouth every morning. Authorizing Provider: MELODY GARAY APRN.CNP Prescription Refill: Requested by: patient Please E-Scribe Caller Contact Number: [phone] [facility] Number: [phone] Generic/ brand: Generic 30 or 90 day supply requested: 90 Last appointment: 05/23/21 Next Appointment: none scheduled Patient of Dr. Mullins documented in this encounter [facility] 10-01-2021 History of Presen t illness Narrative [facility] VIRTUAL VISIT HISTORY OF PRESENT ILLNESS: Cassy Gomez is a 66 year old RH female who is diagnosed with focal seizures, and presents today for six month virtual visit. They are an established patient of Dr. Mullins's and was last seen on 05/23/2021. 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 Seizures: None AED's: Keppra 750mg, 2 pills BID Celexa 10mg daily In other health,stable. Enjoys gardening and doing all of her yardwork.. Occupation: Retired. Driving: no Mood: good. On Celexa Memory: good CURRENT OUTPATIENT MEDICATIONS: Current Outpatient Medications Medication Sig famotidine (PEPCID) 20 mg tablet Take 1 tablet by mouth daily at bedtime. citalopram hydrobromide (CELEXA) 10 mg tablet Take 1 tablet by mouth every morning. levETIRAcetam (KEPPRA) 750 mg tablet Take 2 tablets by mouth twice daily. lisinopril-hydrochlorothiazide (PRINZIDE,ZESTORETIC) 10-12.5 mg per tablet Take 1 tablet by mouth once daily. My-J4-lie-xwdm-ezv-eqca-boron (CALTRATE 600+D PLUS MINERALS) 600 mg calcium- 800 unit-40 mg chew Take 1 tablet by mouth once daily. atorvastatin (LIPITOR) 20 mg tablet Take 20 mg by mouth once daily. alendronate (FOSAMAX) 70 mg tablet Take 70 mg by mouth once each week. Wednesday COMPOUNDED PRESCRIPTION VNS (2008) Currently turned off No current facility-administered medications for this visit. PAST MEDICAL HISTORY Diagnosis Date Depression HTN (hypertension) Localization-related (focal) (partial) epilepsy and epileptic syndromes with simple partial seizures, with intractable epilepsy OA (osteoarthritis) MAGDALENO (obstructive sleep apnea) Port - wine birthmark right religious Tinnitus of left ear PAST SURGICAL HISTORY Procedure Laterality Date CHOLECYSTECTOMY HX 01/28/2017 PAST SURGICAL HISTORY OF FAMILY HISTORY Problem Relation Age of Onset Seizures Other paternal great uncle- grandmal ASSESSMENT: Cassy Gomez is a 66 year old RH female with history of well controlled seizures. Remains on Keppra. Mood is good. Very active keeping up with her house inside and outside. Gardens.No complaints or new health issues. Continue with plan.. PLAN: - LABS: - Medications: -continue with Keppra 750mg, 2 BID, rfs -continue with Celexa 10mg daily, rfs -continue with all daily medications -Follow all seizure precautions - Consults: none - Follow up: six months with either Dr. Mullins or VERONICA I spent 15 minutes during this encounter counseling on medications and lifestyle. Luisana Myers APRN.CNP October 01, 2021 documented in this encounter [facility] 07-27-2016 History of Past i llness Narrative Problem Noted Date Resolved Date 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 07/27/2016 01/19/2017 Focal epilepsy with impairment of consciousness, intractable 03/25/2016 07/01/2016 Partial epilepsy with impair ment of consciousness, intractable 07/05/2002 01/19/2017 documented as of this encounter (statuses as of 10/01/2021) [facility] History of Past illness Narrative* Problem Noted Date Resolved Date 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 07/27/2016 01/19/2017 Focal epilepsy with impairment of consciousness, intractable 03/25/2016 07/01/2016 Partial epilepsy with impair ment of consciousness, intractable 07/05/2002 01/19/2017 documented as of this encounter (statuses as of 04/02/2022) [facility] History of Past illness Narrative* Problem Noted Date Diagnosed Date Resolved Date 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 07/27/2016 01/19/2017 Focal epilepsy with impairme nt of consciousness, intractable 03/25/2016 07/01/2016 Partial epilepsy with impair ment of consciousness, intractable 07/05/2002 01/19/2017 documented as of this encounter (statuses as of 02/04/2023) [facility] History of Past illness Narrative* Problem Noted Date Diagnosed Date Resolved Date 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 07/27/2016 01/19/2017 Focal epilepsy with impairme nt of consciousness, intractable 03/25/2016 07/01/2016 Partial epilepsy with impair ment of consciousness, intractable 07/05/2002 01/19/2017 documented as of this encounter (statuses as of 02/05/2023) [facility] Author Robert Chacon [facility] August 08, 2023 12:19pm Note Date/Time August 08, 2023 11: 17am [facility] Medical Records Department [address] [place] [address] Emergency Department Summary 08/08/23 MR#: [id number] Acct: [id number] Name: CASSY GOMEZ Rep #:[id number] : 1955 68 From: Robert Chacon DO PCP: Dr. Anamika Chowdhury MD Status:REG ER Location: ED HPI History of Present Illness Chief Complaint: Upper Extremity Injury Narrative Narrative: 68-year-old female presenting with right shoulder pain. She has had since 2 Wednesday or . Patient states she did not take anything for pain exceptfor yesterday she took a 200 mg ibuprofen. She states she thought she slept on it wrong initially and notes that it is progressively getting more stiff. She has pain in the right trapezius. No fevers or chills. No cough. No chest pain. No numbness or tingling. Patient states she has been sleeping in a lazy boy chair due to the pain. PFSH PFS Medical History Anxiety Fall GERD (gastroesophageal reflux disease) HLD (hyperlipidemia) Hypertension Seizures Home Medications calcium carbonate 600 mg-vitamin D3 20 mcg (800 unit) tablet 1 ea PO DAILY supplement 02/19/20 [History Last Taken Unknown] citalopram 10 mg tablet 10 mg PO DAILY anxiety 02/19/20 [History Last Taken Unknown] levetiracetam 750 mg tablet 2 tab PO BID seizures 02/19/20 [History Last Taken 02/27/20 05:00] lisinopril 10 mg-hydrochlorothiazide 12.5 mg tablet 1 ea PO DAILY htn 02/19/20 [History Last Taken Unknown] vit C 250 mg-vit E 90 mg-zinc 40 mg-copper 1 ak-whkkle-zvrgqw capsule 1 ea PO BID eyes 02/19/20 [History Last Taken Unknown] atorvastatin 20 mg tablet (Lipitor) 20 mg PO DAILY 11/26/21 [History Last Taken Unknown] famotidine 20 mg tablet 20 mg PO DAILY reflux 11/26/21 [History Last Taken Unknown] hydrocodone-acetaminophen 5-325mg 5mg-325mg 1 tab PO Q6H PRN pain 3 days #12 TABLETS 08/08/23 [Rx Last Taken Unknown] Allergy/AdvReac Type Severity Reaction Status Date / Time No Known Allergies Allergy Verified 08/08/23 10:09 Social History Smoking Status: Never smoker ROS ROS ED Constitutional Constitutional ED: Denies chills, fever(s) or sweats Eyes Eyes: Denies blurry vision or change in vision ENT ENT ED: Denies ear pain or sore throat Cardiovascular Cardiovascular: Denies chest pain, palpitations or racing heartbeat Respiratory/Chest Respiratory/Chest: Denies cough, dyspnea or sputum Gastrointestinal Gastrointestinal: Denies abdominal pain, constipation, diarrhea, nausea or vomiting Genitourinary Genitourinary ED: Denies dysuria, hematuria or urinary frequency Musculoskeletal Musculoskeletal: Reports other Details: Right shoulder pain ; Denies arthralgias, myalgias or neck pain Integumentary Denies abscess, Abrasions or rash Neurologic Neurologic: Denies headache(s), paresthesias or weakness Psychiatric Psychiatric: Denies anxiety, depression, suicidal ideation or suicidal thoughts Endocrine Endocrinology: Denies polydipsia or polyuria EXAM Physical Exam Const Vital Signs: 08/08/23 10:10 Temperature 97.5 F L Temperature Source Temporal Pulse Rate 94 Respiratory Rate 16 Blood Pressure 156/72 H Blood Pressure Mean 100 Pulse Ox 93 Oxygen Delivery Method Room Air Positive well nourished General Appearance ED: NAD HEENT Reports moist mucous membranes normocephalic Eyes PERRL Neck full ROM Neck Narrative: No midline spinal tenderness, deformity, step-off. Chest Wall inspection of chest normal Resp normal respiratory effort Cardio regular rate and regular rhythm Extremity Extremity Narrative: Tenderness palpation over the right shoulder/bicipital groove. There is no posterior shoulder girdle pain. Tenderness palpation noted in the right trapezius as well. Limited range of motion in flexion/extension/abduction secondary to pain. Neurovascular intact throughout with brisk cap refill to all5 fingers. Neuro oriented x3 and CN's II-XII intact bilaterally Sensorium / Orientation: alert MDM MDM MDM Narrative Medical decision making narrative: Patient with right shoulder pain. This is nontraumatic. She has some tenderness on examination over the bicipital grooves and right trapezius. Patient given Toradol and right shoulder will be obtained. X-rays of the right shoulder my interpretation shows no acute fracture or subluxation. Radiology interprets as calcific tendinitis. Patient will be given [place] for pain at home. She will be given orthopedic follow-up. Return precautions were discussed. Impression: 1. Right shoulder tendinitis 2. Right shoulder strain Lab Data Attestation: I reviewed the patient's lab results. Discharge Plan Triage Chief Complaint: Upper Extremity Injury ED Provider: Robert Chacon Dx/Rx/DC Orders Instructions: ED Shoulder Sprain Prescriptions: New hydrocodone-acetaminophen 5-325 mg tablet 1 tab PO Q6H PRN (Reason: pain) 3 Days Qty: 12 0RF No Action atorvastatin [Lipitor] 20 mg tablet 20 mg PO DAILY citalopram 10 MG tablet 10 mg PO DAILY levetiracetam 750 MG tablet 2 tab PO BID lisinopril-hydrochlorothiazide 1 EACH tablet 1 ea PO DAILY calcium carbonate-vitamin D3 1 EACH tablet 1 ea PO DAILY vit C,J-Ep-njchq-lutein-zeaxan 1 EACH capsule 1 ea PO BID famotidine 20 mg tablet 20 mg PO DAILY Primary Care Provider: Anamika Chowdhury Referrals: Anamika Chowdhury MD [Primary Care Provider] - Disposition Disposition: Home, Self Care What to do if you have Problems For any increased pain, shortness of breath, bleeding, nausea or vomiting, chestpain, or any unexpected problems, contact your Primary Care Provider. Call [facility] ([phone]) or report to the closest Emergency Room. Call 911 if necessary. 08/08/23 1219 <Electronically signed by Robert Chacon DO> Cosigner Signature (if applicable): CC: Dr. Anamika Chowdhury MD ~ Signed [facility] Work Phone: Evaluation note* Diagnosis Focal epilepsy (HCC)- Primary Localization-related (focal) (partial) epilepsy and epileptic syndromes with simple partial seizures, without mention of intractable epilepsy documented [facility] encounter [facility] noteNo assessment information availableWWVUMed[facility] Work Phone: Evaluation note* Diagnosis Localization-related epilepsy with complex partial seizures with intractable epilepsy (HCC) Localization-related (focal) (partial) epilepsy and epileptic syndromes with complex partial seizures, with intractable epilepsy documented in this encounter [facility] Summary Purpose Family History No Family History Records FoundNo Family History Records FoundNo Family History Records FoundNo Family History Records Found Advance Directives No Advanced Directives Records FoundDocuments on File Type Date Recorded 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 Advance Directive(s) 07/21/2016 9:17 AM Advance Directive(s) 07/21/2016 12:24 PM Advance Directive(s) 07/21/2016 12:25 PM Advance Directive(s) 03/25/2016 8:13 PM Advance Directive Response Recorded Date/ Time Living Will No November 18, 2020 1 2:18pm Power of Chemist Physical No November 18, 2020 12:18pm Advance Directive Response Recorded Date/ Time Living Will No October 29, 2021 7:29pm Power of Chemist Physical No October 29 7:29pm Documents on File Type Date Recorded 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 Additional Source Comments INFORMATION SOURCE (unrecogn ized section and content) DATE CREATED AUTHOR 11/04/2017 [facility] DATE CREATED AUTHOR AUTHOR'S ORGANIZ ATION 04/25/2018 [facility] DATE CREATED AUTHOR AUTHOR'S ORGANIZ ATION 06/08/2023 [facility] DATE CREATED AUTHOR AUTHOR'S ORGANIZ ATION 10/21/2024 [facility] Source Comments (unrecognize d section and content) In the event this informatio n is protected by the Federal Confidentiality of Alcohol and Drug Abuse Patient Records regulations: The Federal rules restrict any use of the information to criminally investigate or prosecute any alcohol or drug abuse patient.[facility] Hospital[facility] the event this information is protected by the Federal Confidentiality of Alcohol and Drug Abuse Patient Records regulations: The Federal rules restrict any use of the information to criminally investigate or prosecute any alcohol or drug abuse patient.[facility] Hospital[facility] the event this information is protected by the Federal Confidentiality of Alcohol and Drug Abuse Patient Records regulations: The Federal rules restrict any use of the information to criminally investigate or prosecute any alcohol or drug abuse patient.[facility] HospitalIn the event this information is protected by the Federal Confidentiality of Alcohol and Drug Abuse Patient Records regulations: The Federal rules restrict any use of the information to criminally investigate or prosecute any alcohol or drug abuse patient.[facility] HospitalIn the event this information is protected by the Federal Confidentiality of Alcohol and Drug Abuse Patient Records regulations: The Federal rules restrict any use of the information to criminally investigate or prosecute any alcohol or drug abuse patient.[facility] HospitalIn the event this information is protected by the Federal Confidentiality of Alcohol and Drug Abuse Patient Records regulations: The Federal rules restrict any use of the information to criminally investigate or prosecute any alcohol or drug abuse patient.[facility] HospitalIn the event this information is protected by the Federal Confidentiality of Alcohol and Drug Abuse Patient Records regulations: The Federal rules restrict any use of the information to criminally investigate or prosecute any alcohol or drug abuse patient.[facility] HospitalIn the event this information is protected by the Federal Confidentiality of Alcohol and Drug Abuse Patient Records regulations: The Federal rules restrict any use of the information to criminally investigate or prosecute any alcohol or drug abuse patient.[facility] Reason for Visit (unrecogniz ed section and content) Reason Comments Follow Up Refill Request Reason Onset Date Comments Refill Request 04/02/2022 Reason Comments Refill Request Care Teams (unrecognized sec tion and content) Operations Clerk Relationship Specialty Start Date End Date Lb Rangel MD [address] [phone] PCP - General Internal Medicine 10/26/11 Dominique Yoder MD Attending Neurology 10/26/11 Operations Clerk Relationship Specialty Start Date End Date Lb Rangel MD [address] [phone] PCP - General Internal Medicine 10/26/11 Dominique Yoder DO Attending Neurology 10/26/11 Team Status: Active Member Role Status Dates Dr. Anamika Chowdhury MD Family Provider Active Dr. Anamika Chowdhury MD Primary Care Provider Active Team Status: Inactive Member Role Status Dates Dr. Anamika Chowdhury MD Primary Care Prov ider, Attending Provider, Referring Provider Active Operations Clerk Relationship Specialty Start Date End Date Taj José Miguel Ronnie [address] [place] [address] PCP - General 09/01/00 10/25/11 Lb Rangel MD [address], [address] [phone] PCP - General Internal Medicine 10/26/11 Dominique Yoder DO [address], [address] [phone] Attending Neurology 10/26/11 Operations Clerk Relationship Specialty Start Date End Date Lb Rangel MD [address], [address] [phone] PCP - General Internal Medicine 10/26/11 Dominique Yoder DO [address], [address] [phone] Attending Neurology 10/26/11 Team Status: Inactive Member Role Status Dates Dr. Anamika Chowdhury MD Primary Care Provider Active Dr. Robert Chacon DO Emergency Provider Active Operations Clerk Relationship Specialty Start Date End Date Lb Rangel MD [address] [place] [phone] PCP - General Internal Medicine 10/26/11 Dominique Yoder DO [address] [facility] [place] [phone] Attending Neurology 10/26/11 Goals (unrecognized section and content) Goals may be documented in a n alternate sectionGoals may be documented in an alternate sectionGoals may be documented in an alternate sectionGoals may be documented in an alternate sectionGoals may be documented in an alternate section FOR RECORDS PERTAINING TO PATIENTS WHO ARE OR HAVE BEEN ENROLLED IN A CHEMICAL DEPENDENCY/SUBSTANCEABUSE PROGRAM, SOME INFORMATION MAY BE OMITTED. This clinical summary was aggregated from multiple sources. Caution should be exercised in using it in the provision of clinical care. This summary normalizes information from multiple sources, and as a consequence, information in this document may materially change the coding, format and clinical context of patient data. In addition, data may be omitted in some cases. CLINICAL DECISIONS SHOULD BE BASED ON THE PRIMARY CLINICAL RECORDS. [employer] provides no warranty or guarantee of the accuracy or completeness of information in this document.
--- OUTSIDE RECORDS SUMMARY | 2024-10-25 07:26 | XMS RPT_ITS | CCD ---
Author Organization [facility] Care Team Providers Care Watershed Engineer Name Role Phone DALE, HUA T Unavailable Unavailable ODELLSLY W Unavailable Unavailable ODELLSLY W Unavailable Unavailable ODELLSLY MORRELL W Unavailable Unavailable SLY ODELL Unavailable Unavailable Lb Rangel MD Primary Care Provider [phone] Dominique Yoder MD Unavailable [phone] Lb Rangel MD Primary Care Provider [phone] Dominique Yoder DO Unavailable [phone] José Miguel Vang Primary Care Provider [phone] Lb Rangel MD Primary Care Provider [phone] Dominique Yoder DO Unavailable LITO MCKEON Attending Unavailable LB RANGEL Primary Care Unavailable Lb Rangel MD Primary Care Provider [phone] Anamika Chowdhury Referring Unavailable Anamika Chowdhury Attending [...] take 1 tablet by mouth once daily Yx-X4-una-zinc-steelscope operator-m ang-boron (CALTRATE 600+D PLUS MINERALS) 600 mg calcium- 800 unit-40 mg chew Take 1 tablet by mouth once daily. Active take 1 tablet by emma th once daily Fi-D9-nih-pljt-qoe-ehgn-boron (CALTRATE 600+D PLUS MINERALS) 600 mg calcium- [...] on above: Take 2 tablets by mo [facility] twice daily. Vit C,D-Mh-Eziav-Lutein-Jamison te (5 sources) Start: 02-19-2020 Vit C,V-Od-Mmowz-Lutein-Ze axan Active 1 EACH PO TWICE A DAY February 19, 2020 2:08pm Start: 02-19-2020 Vit C,E-Zn-Dust Collector hw-Ijtgxy-Ubadpy Active 1 EACH PO TWICE A DAY [...] Absolute Lymph 2.30 X10 3/uL Normal 0.83-4.51 [facility] Comment on above: Performed By: #### L 500.4050, L500.4100, L100.0100, L501.9985 #### [facility] [address] [place], [address] Absolute Neut 3.7 X10 3/uL Normal 2.0-7.7 [facility] Comment on above: Performed By: #### L 500.4050, L500.4100, L100.0100, L501.9985 #### [facility] [address] [place], [address] Basophils/100 WBC (Bld) 0.7 % Normal 0-1 [facility] Comment on above: Performed By: #### L 500.4050, L500.4100, L100.0100, L501.9985 #### [facility] [address] [place], [address] Eosinophils/100 WBC (Bld) 3.0 % Normal 0-5 [facility] Comment on above: Performed By: #### L 500.4050, L500.4100, L100.0100, L501.9985 #### [facility] [address] [place], [address] Erythrocyte distribution width (RBC) [Ratio] 12.2 % Normal 11.6-14.6 [facility] Comment on above: Performed By: #### L 500.4050, L500.4100, L100.0100, L501.9985 #### [facility] [address] [place], [address] Hematocrit (Bld) [Volume fraction] 44.7 % Normal 37-47 [facility] Comment on above: Performed By: #### L 500.4050, L500.4100, L100.0100, L501.9985 #### [facility] [address] [place], [address] Hemoglobin (Bld) [Mass/Vol] 14.7 g/dL Normal 12.0-15.0 [facility] Comment on above: Performed By: #### L 500.4050, L500.4100, L100.0100, L501.9985 #### [facility] [address] [place], [address] IG% 0.300 Normal 0.0-0.9 [facility] Comment on above: Result Comment: IG% - Immature Granulocytes (promyelocytes, myelocytes and metamyelocytes) > 1% indicates that a LEFT SHIFT is Present. Performed By: #### L 500.4050, L500.4100, L100.0100, L501.9985 #### [facility] [address] [place], [address] Lymphocytes/100 WBC (Bld) 33.0 % Normal 19-41 [facility] Comment on above: Performed By: #### L 500.4050, L500.4100, L100.0100, L501.9985 #### [facility] [address] [place], [address] MCH (RBC) [Entitic mass] 30.5 pg Normal 27.0-32.0 [facility] Comment on above: Performed By: #### L 500.4050, L500.4100, L100.0100, L501.9985 #### [facility] [address] [place], [address] MCHC (RBC) [Mass/Vol] 32.9 g/dL Normal 32-36 [facility] Comment on above: Performed By: #### L 500.4050, L500.4100, L100.0100, L501.9985 #### [facility] [address] [place], [address] MCV (RBC) [Entitic vol] 92.7 fL Normal 81-99 [facility] Comment on above: Performed By: #### L 500.4050, L500.4100, L100.0100, L501.9985 #### [facility] [address] [place], [address] Monocytes/100 WBC (Bld) 10.0 % Normal 0-10 [facility] Comment on above: Performed By: #### L 500.4050, L500.4100, L100.0100, L501.9985 #### [facility] [address] [place], [address] Neutrophils/100 WBC (Bld) 53.0 % Normal 47-70 [facility] Comment on above: Performed By: #### L 500.4050, L500.4100, L100.0100, L501.9985 #### [facility] [address] [place], [address] Nucleated RBC (Bld) [#/Vol] 0 10*3/uL Normal 0-5 [facility] Comment on above: Performed By: #### L 500.4050, L500.4100, L100.0100, L501.9985 #### [facility] [address] [place], [address] Platelet mean volume (Bld) [Entitic vol] 9.6 fL Normal 6.2-12.0 [facility] Comment on above: Performed By: #### L 500.4050, L500.4100, L100.0100, L501.9985 #### [facility] [address] [place], [address] Platelets (Bld) [#/Vol] 225 10*3/uL Normal 150-450 [facility] Comment on above: Performed By: #### L 500.4050, L500.4100, L100.0100, L501.9985 #### [facility] [address] [place], [address] RBC (Bld) [#/Vol] 4.82 10*6/uL Normal 4.2-5.4 [facility] Comment on above: Performed By: #### L 500.4050, L500.4100, L100.0100, L501.9985 #### [facility] [address] [place], [address] RDW SD 41.6 fl Normal 35.1-43.9 [facility] Comment on above: Performed By: #### L 500.4050, L500.4100, L100.0100, L501.9985 #### [facility] [address] [place], [address] WBC (Bld) [#/Vol] 7.0 10*3/uL Normal 4.4-11.0 [facility] Comment on above: Performed By: #### L 500.4050, L500.4100, L100.0100, L501.9985 #### [facility] [address] [place], [address] Comprehensive Metabolic Prof [facility] 02-04-2024 Albumin [Mass/Vol] 3.8 g/dL Normal 3.2-5.0 [facility] Comment on above: Performed By: #### L 500.4050, L500.4100, L100.0100, L501.9985 #### [facility] [address] [place], [address] Albumin/Globulin [Mass ratio] 1.1 {ratio} Normal 0.9-2.4 [facility] Comment on above: Performed By: #### L 500.4050, L500.4100, L100.0100, L501.9985 #### [facility] [address] [place], [address] ALK P 79 U/L Normal 45-117 [facility] Comment on above: Performed By: #### L 500.4050, L500.4100, L100.0100, L501.9985 #### [facility] [address] [place], [address] ALT [Catalytic activity/Vol] 38 U/L Normal 13-56 [facility] Comment on above: Performed By: #### L 500.4050, L500.4100, L100.0100, L501.9985 #### [facility] [address] [place], [address] AST [Catalytic activity/Vol] 20 U/L Normal 15-37 [facility] Comment on above: Performed By: #### L 500.4050, L500.4100, L100.0100, L501.9985 #### [facility] [address] [place], [address] Bilirubin [Mass/Vol] 0.60 mg/dL Normal 0.20-1.00 [facility] Comment on above: Result Comment: For patients on eltrombopag therapy, use of [place] TBIL is not recommended. Performed By: #### L 500.4050, L500.4100, L100.0100, L501.9985 #### [facility] [address] [place], [address] BUN/CRE 19.8 RATIO Normal 10-20 [facility] Comment on above: Performed By: #### L 500.4050, L500.4100, L100.0100, L501.9985 #### [facility] [address] [place], [address] CA,Total 9.4 mg/dL Normal 8.5-10.1 [facility] Comment on above: Performed By: #### L 500.4050, L500.4100, L100.0100, L501.9985 #### [facility] [address] [place], [address] Chloride [Moles/Vol] 104 mmol/L Normal 98-107 [facility] Comment on above: Performed By: #### L 500.4050, L500.4100, L100.0100, L501.9985 #### [facility] [address] [place], [address] CO2 [Moles/Vol] 28.0 mmol/L Normal 21.0-32.0 [facility] Comment on above: Performed By: #### L 500.4050, L500.4100, L100.0100, L501.9985 #### [facility] [address] [place], [address] Creatinine [Mass/Vol] 0.96 mg/dL Normal 0.55-1.02 [facility] Comment on above: Result Comment: The validity of the calculated GFR GFRAA in patients over 70 years has not been determined. Clinical correlation is essential. Performed By: #### L 500.4050, L500.4100, L100.0100, L501.9985 #### [facility] [address] [place], [address] EST GFR - AA 74 mL/min Normal >60 [facility] Comment on above: Result Comment: Afri can [place] GFR Calc Performed By: #### L 500.4050, L500.4100, L100.0100, L501.9985 #### [facility] [address] [place], [address] GAP 7 Normal 5-15 [facility] Comment on above: Performed By: #### L 500.4050, L500.4100, L100.0100, L501.9985 #### [facility] [address] [place], [address] GFR/1.73 sq M.predicted among non-blacks MDRD (S/P/Bld) [Vol rate/Area] 61 mL/min/{1.73_m2} Normal >60 [facility] Comment on above: Result Comment: Non- GFR Calc Performed By: #### L 500.4050, L500.4100, L100.0100, L501.9985 #### [facility] [address] [place], [address] Globulin (S) [Mass/Vol] 3.6 g/dL Normal 2.2-4.2 [facility] Comment on above: Performed By: #### L 500.4050, L500.4100, L100.0100, L501.9985 #### [facility] [address] [place], [address] Glucose [Mass/Vol] 111 mg/dL High 74-106 [facility] Comment on above: Result Comment: Fast ing Glucose result from 100 to 125 mg/dL suggests IMPAIRED HOMEOSTASIS per A.D.A. criteria. Performed By: #### L 500.4050, L500.4100, L100.0100, L501.9985 #### [facility] [address] [place], [address] Potassium [Moles/Vol] 4.0 mmol/L Normal 3.5-5.1 [facility] Comment on above: Performed By: #### L 500.4050, L500.4100, L100.0100, L501.9985 #### [facility] [address] [place], [address] Sodium [Moles/Vol] 139 mmol/L Normal 136-145 [facility] Comment on above: Performed By: #### L 500.4050, L500.4100, L100.0100, L501.9985 #### [facility] [address] [place], [address] T PROT 7.4 g/dL Normal 6.4-8.2 [facility] Comment on above: Performed By: #### L 500.4050, L500.4100, L100.0100, L501.9985 #### [facility] [address] [place], [address] Urea nitrogen [Mass/Vol] 19 mg/dL High 7-18 [facility] Comment on above: Performed By: #### L 500.4050, L500.4100, L100.0100, L501.9985 #### [facility] [address] [place], [address] Hemoglobin A1con 02-04-2024 HbA1c (Bld) [Mass fraction] 5.8 % High 3.8-5.6 [facility] Comment on above: Result Comment: Norm al < 5.7 % Prediabetic 5.7 - 6.4 % Diabetic >or= 6.5 % Please note range changes. Performed By: #### L 500.4050, L500.4100, L100.0100, L501.9985 #### [facility] [address] [place], [address] Lipid Profileon 02-04-2024 Cholesterol [Mass/Vol] 151 mg/dL Normal 200 [facility] Comment on above: Result Comment: <200 mg/dL Desirable 200-240 mg/dL Borderline >240 mg/dL High Risk Performed By: #### L 500.4050, L500.4100, L100.0100, L501.9985 #### [facility] [address] [place], [address] Cholesterol in HDL [Mass/Vol] 55 mg/dL Normal [facility] Comment on above: Result Comment: The drugs N-Acetylcysteine and Metamizole may falsely depress this assay. Reference Range HDL <40 mg/dL Low HDL Cholesterol HDL >or= 60 mg/dL High HDL Cholesterol Performed By: #### L 500.4050, L500.4100, L100.0100, L501.9985 #### [facility] [address] [place], [address] Cholesterol in LDL [Mass/Vol] 62 mg/dL Normal 0-130 [facility] Comment on above: Performed By: #### L 500.4050, L500.4100, L100.0100, L501.9985 #### [facility] [address] [place], [address] Cholesterol in VLDL [Mass/Vol] 34 mg/dL Normal 5-40 [facility] Comment on above: Performed By: #### L 500.4050, L500.4100, L100.0100, L501.9985 #### [facility] [address] [place], [address] Triglyceride [Mass/Vol] 169 mg/dL Normal [facility] Comment on above: Result Comment: The drugs N-Acetylcysteine and Metamizole may falsely depress this assay. Serum Triglycerides Reference Interval Normal <150 mg/dL Borderline high 150 - 199 mg/dL High 200 - 499 mg/dL Very High > or = 500 mg/dL Performed By: #### L 500.4050, L500.4100, L100.0100, L501.9985 #### [facility] [address] [place], [address] Absolute lymphocyte countOrd ered By: Anamika Chowdhury on 01-19-2023 Lymphocytes Auto (Unsp spec) [#/Vol] 2.08 10*3/uL 0.83-4.51 [facility] Basophil percentageOrdered B y: Anamika Chowdhury on 01-19-2023 Basophils/100 WBC (Bld) 0.5 % 0-1 [facility] Bilirubin [Mass/Vol] 0.40 mg/dL 0.20-1.00 [facility] Comment on above: For patients on eltr ombopag therapy, use of [place] TBIL is not recommended. Chloride [Moles/Vol] 106 mmol/L 98-107 [facility] Cholesterol [Mass/Vol] 159 mg/dL <200 [facility] Comment on above: <200 mg/dL Desirable 200-240 mg/dL Borderline >240 mg/dL High Risk Eosinophils/100 WBC (Bld) 3.7 % 0-5 [facility] Glucose [Mass/Vol] 103 mg/dL 74-106 [facility] Comment on above: Fasting Glucose resu lt from 100 to 125 mg/dL suggests IMPAIRED HOMEOSTASIS per A.D.A. criteria. Neutrophils (Bld) [#/Vol] 3.3 10*3/uL 2.0-7.7 [facility] Neutrophils/100 WBC (Bld) 53.3 % 47-70 [facility] Potassium [Moles/Vol] 4.2 mmol/L 3.5-5.1 [facility] Protein [Mass/Vol] 7.5 g/dL 6.4-8.2 [facility] Sodium [Moles/Vol] 139 mmol/L 136-145 [facility] Triglyceride [Mass/Vol] 165 mg/dL <199 [facility] Comment on above: The drugs N-Acetylcy steine and Metamizole may falsely depress this assay.Serum Triglycerides Reference Interval Normal <150 mg/dL Borderline high 150 - 199 mg/dL High 200 - 499 mg/dL Very High > or = 500 mg/dL WBC (Bld) [#/Vol] 6.2 10*3/uL 4.4-11.0 [facility] Blood erythrocytes count (nu mber/volume)Ordered By: Anamika Chowdhury on 01-19-2023 RBC (Bld) [#/Vol] 4.66 10*6/uL 4.2-5.4 [facility] Blood hemoglobin measurement (mass/volume)Ordered By: Anamika Chowdhury on 01-19-2023 Hemoglobin (Bld) [Mass/Vol] 14.5 g/dL 12.0-15.0 [facility] Blood lymphocytes/100 leukoc ytesOrdered By: Anamika Chowdhury on 01-19-2023 Lymphocytes/100 WBC (Bld) 33.5 % 19-41 [facility] Blood monocytes/100 leukocyt esOrdered By: Anamika Chowdhury on 01-19-2023 Monocytes/100 WBC (Bld) 8.7 % 0-10 [facility] Blood platelet mean volumeOr dered By: Anamika Chowdhury on 01-19-2023 Platelet mean volume (Bld) [Entitic vol] 9.7 fL 6.2-12.0 [facility] Determination of erythrocyte mean corpuscular volume (MCV)Ordered By: Anamika Chowdhury on 01-19-2023 MCV (RBC) [Entitic vol] 95.5 fL 81-99 [facility] Hematocrit Auto (Bld) [Volum e fraction]Ordered By: Anamika Chowdhury on 01-19-2023 Hematocrit (Bld) [Volume fraction] 44.5 % 37-47 [facility] - Chemistry and C hemistry - challengeOrdered By: Anamika Chowdhury on 01-19-2023 ALP [Catalytic activity/Vol] 76 U/L 45-117 [facility] ALT [Catalytic activity/Vol] 39 U/L 13-56 [facility] CO2 [Moles/Vol] 29.0 mmol/L 21.0-32.0 [facility] Globulin (S) [Mass/Vol] 3.9 g/dL 2.2-4.2 [facility] Urea nitrogen/Creatinine [Mass ratio] 21.8 mg/mg 10-20 [facility] - Hematology and Cell countsOrdered By: Anamika Chowdhury on 01-19-2023 Erythrocyte distribution width (RBC) [Entitic vol] 42.1 fL 35.1-43.9 [facility] Erythrocyte distribution width (RBC) [Ratio] 12.1 % 11.6-14.6 [facility] Immature granulocytes/100 WBC (Bld) 0.300 % 0.0-0.9 [facility] Comment on above: IG% - Immature Granu locytes (promyelocytes, myelocytes and metamyelocytes) > 1% indicates that a LEFT SHIFT is Present. MCH (RBC) [Entitic mass] 31.1 pg 27.0-32.0 [facility] Nucleated RBC/100 WBC (Bld) [Ratio] 0 % 0-5 [facility] MCHC Auto (RBC) [Mass/Vol]Or dered By: Anamika Chowdhury on 01-19-2023 MCHC (RBC) [Mass/Vol] 32.6 g/dL 32-36 [facility] No Panel InformationOrdered By: Anamika Chowdhury on 01-19-2023 Estimated GFR (MDRD) Amer 78 mL/min >60 [facility] Comment on above: GFR Calc Estimated GFR (MDRD) Non-Af Amer 64 mL/min >60 [facility] Comment on above: Non- GFR Calc Platelets bldOrdered By: Akhil Chowdhury on 01-19-2023 Platelets (Bld) [#/Vol] 224 10*3/uL 150-450 [facility] Serum or plasma albumin johanne urement (mass/volume)Ordered By: Anamika Chowdhury on 01-19-2023 Albumin [Mass/Vol] 3.6 g/dL 3.2-5.0 [facility] Serum or plasma albumin/glob ulin mass ratioOrdered By: Anamika Chowdhury on 01-19-2023 Albumin/Globulin [Mass ratio] 0.9 {ratio} 0.9-2.4 [facility] Serum or plasma calcium johanne urement (mass/volume)Ordered By: Anamika Chowdhury on 01-19-2023 Calcium [Mass/Vol] 8.8 mg/dL 8.5-10.1 [facility] Serum or plasma cholesterol in HDL measurement (mass/volume)Ordered By: Anamika Chowdhury on 01-19-2023 Cholesterol in HDL [Mass/Vol] 51 mg/dL >40 [facility] Comment on above: The drugs N-Acetylcy steine and Metamizole may falsely depress this assay. Reference Range HDL <40 mg/dL Low HDL Cholesterol HDL >or= 60 mg/dL High HDL Cholesterol Serum or plasma cholesterol in VLDL measurement (mass/volume)Ordered By: Anamika Chowdhury on 01-19-2023 Cholesterol in VLDL [Mass/Vol] 33 mg/dL 5-40 [facility] Serum or plasma creatinine m easurement (mass/volume)Ordered By: Anamika Chowdhury on 01-19-2023 Creatinine [Mass/Vol] 0.92 mg/dL 0.55-1.02 [facility] Comment on above: The validity of the calculated GFR & GFRAA in patients over 70 years has not been determined. Clinical correlation is essential. Serum or plasma low density lipoprotein (LDL) cholesterol measurement (mass/volume)Ordered By: Anamika Chowdhury on 01-19-2023 Cholesterol in LDL [Mass/Vol] 75 mg/dL 0-130 [facility] Serum or plasma urea nitroge n measurement (mass/volume)Ordered By: Anamika Chowdhury on 01-19-2023 Urea nitrogen [Mass/Vol] 20 mg/dL 7-18 [facility] Thin prep Papanicolaou smear with manual screeningOrdered By: Anamika Chowdhury on 01-19-2023 Thin prep Papanicolaou smear with manual screening 22 U/L 15-37 [facility] Thin prep Papanicolaou smear with manual screening 4 5-15 [facility] Whole blood hemoglobin A1c/t otal hemoglobin ratio (mass fraction)Ordered By: Anamika Chowdhury on 01-19-2023 HbA1c (Bld) [Mass fraction] 5.8 % 3.8-5.6 [facility] Comment on above: Normal < 5.7 % Predi abetic 5.7 - 6.4 % Diabetic >or= 6.5 % Please note range changes. [facility] DIAG DIRECT DIG IMAGE UN Ion 04-01-2018 [facility] DIAG DIRECT DIG IMAGE [facility] [place], [place] [address]Lqyq: CASSY GOMEZPhys: SLY ODELL III, M.D.: 51 Age: 63 Sex: FAcct: [id number] Loc: RAD MAMMExam Date: 04/01/18 Status: REG CLIRadiology No.: [id number] Number: [id number] # [id number] MAMMO / DICKSON DIAG DIRECT DIG IMAGE UNI#[id number] - DICKSON DIAG DIRECT DIG IMAGE UNIUNILATERAL RIGHT DIGITAL DIAGNOSTIC MAMMOGRAM: 04/01/2018CLINICAL: Diagnostic Ophmmkfby-Ggkgfzbtod-E T5 mm Mass 6 o'clock Posterior Depth.Comparison is made to exams dated: 09/29/2017 ultrasound and 09/22/2017 mammogram- [facility] Breast Swisher. There are scattered fibroglandular elements inright breast.There [...] Saez/penrad: 018 11:07:42Imaging Technologist(s): Bernadine Rubio, RT(R)(M), [facility] 2 Benign MAMMO REPORT SIGNATURE ON FILE Reported By: MOISES WATSON M.D. << Signature on File>> Reported By: MOISES WATSON M.D. Signed By: MOISES WATSON M.D.Tests performed at:[address] [phone] Normal [facility] US BREAST LIMITEDon 09-30-19 US BREAST LIMITED [address] [address]Fhrn: Warner GOMEZ: SLY ODELL III, M.D.: [birth year] Age: 62 Sex: FAcct: [id number] Loc: RAD USExam Date: 09/29/17 Status: REG CLIRadiology No.: [id number] Number: [id number] # [id number] US / US BREAST LIMITED RT#[id number] - US BREAST LIMITEDLIMITED ULTRASOUND OF RIGHT BREAST: 09/29/2017CLINICAL: Rt breast density BCC.Comparison is made to exam dated: 09/22/2017 mammogram - [facility].Real-time ultrasound of the right breast 6 o'clock [...] Mosley/leelee:10/01/19 18 09:29:28copy to: Lb Rangel MD, [facility] ph:[phone], fax: [phone] Technologist(s): Maru Vann, [facility] Breast Centerletter sent: BIRADS 3 - 6 mo Mammo Follow-upUltrasound BI-RADS: 3 Probably benign REPORT SIGNATURE ON FILE Reported By: SIVA NICOLE D.O. << Signature on File>> Reported By: SIVA NICOLE D.O. Signed By: SIVA NICOLE D.O.Tests performed at:[address] [phone] Normal [facility] HEP C Virus Abon 09-23-2017 HEP C Virus Ab <0.1 Normal 0.0-0.9 [facility] Comment on above: Result Comment: INFC E Result Units: s/co ratio Negative: < 0.8 Indeterminate: 0.8 - 0.9 Positive: > 0.9 The CDC recommends that a positive HCV antibody result be followed up with a HCV Nucleic Acid Amplification test (432451).Performed at: [facility] [id number] Director: Wesly Cobb PhD, Phone: [phone] Performed By: #### L 801.3865 ####[place] [address] CBCon 09-22-2017 Basophils Auto #/vol (Bld) 0.00 x10(3) Normal 0.00-0.10 [facility] Comment on above: Performed By: #### L 200.0010 ####[address] [address] Basophils/100 WBC Auto (Bld) 0.7 % Normal 0.0-1.0 [facility] Comment on above: Performed By: #### L 200.0010 ####ML [facility] [id number] [place] [address] Eosinophils Auto #/vol (Bld) 0.10 x10(3) Normal 0.00-0.54 Formerly [facility] Comment on above: Performed By: #### L 200.0010 ####[facility] G[address] [place] [address]1486 Eosinophils/100 WBC Auto (Bld) 1.2 % Normal 0.5-4.9 Formerly [facility] Comment on above: Performed By: #### L 200.0010 ####ML - [id number] [place] [address] Erythrocyte distribution width Auto Ratio (RBC) 12.1 % Low 12.5-15.7 Formerly [facility] Comment on above: Performed By: #### L 200.0010 ####ML [facility] V[address] [place] [address] 24545 Hematocrit Auto Volume Fraction (Bld) 43.8 % Normal 36.0-48.0 Formerly [facility] Comment on above: Performed By: #### L 200.0010 ####ML - [id number] [place] [address] 49489 Hemoglobin mass conc (Bld) 15.0 g/dL Normal 12.0-16.0 Formerly [facility] Comment on above: Performed By: #### L 200.0010 ####ML [facility] C[address]PMN[address] [place] [address] 11527 Lymphocytes Auto #/vol (Bld) 1.60 x10(3) Normal 1.00-3.50 Formerly [facility] Comment on above: Performed By: #### L 200.0010 ####ML [facility] NMNDIVEBHG[address] [place] [address] 67368 Lymphocytes/100 WBC Auto (Bld) 34.3 % Normal 16.0-48.0 Formerly [facility] Comment on above: Performed By: #### L 200.0010 ####ML [facility] SKVCXPUEZ[address] [place] [address] 83597 MCH Auto Entitic mass (RBC) 33.0 pg High 28.5-32.9 Formerly [facility] Comment on above: Performed By: #### L 200.0010 ####ML - [id number] [place] [address] 07275 MCHC Auto mass conc (RBC) 34.2 g/dL Normal 33.0-36.0 [facility]ly [facility] Comment on above: Performed By: #### L 200.0010 ####ML [facility] VNCSCKR[address] [place] [address] 02712 MCV Auto Entitic volume (RBC) 96.4 fL Normal 80.0-99.0 Formerly [facility] Comment on above: Performed By: #### L 200.0010 ####ML [facility] MBEXZ[address]IWU[address] [place] [address] 66473 Monocytes Auto #/vol (Bld) 0.30 x10(3) Normal 0.30-0.80 Formerly [facility] Comment on above: Performed By: #### L 200.0010 ####ML [address] [address] Monocytes/100 WBC Auto (Bld) 7.3 % Normal 4.3-11.2 [facility] Comment on above: Performed By: #### L 200.0010 ####ML [address] [address] Neutrophils Auto #/vol (Bld) 2.60 x10(3) Normal 1.40-6.50 Formerly [facility] Comment on above: Performed By: #### L 200.0010 ####ML [address] [address] Neutrophils/100 WBC Auto (Bld) 56.5 % Normal 45.0-73.0 Formerly [facility] Comment on above: Performed By: #### L 200.0010 ####ML [address] [address] Platelet mean volume Auto Entitic volume (Bld) 8.0 fL Normal 7.5-9.5 Formerly [facility] Comment on above: Performed By: #### L 200.0010 ####ML [address] [address] Platelets Auto #/vol (Bld) 199 X10(3) Normal 150-450 [facility] Comment on above: Performed By: #### L 200.0010 ####ML [address] [address] RBC Auto #/vol (Bld) 4.54 x10(6) Normal 3.30-5.00 [facility] Comment on above: Performed By: #### L 200.0010 ####ML [address] [address] WBC Auto #/vol (Bld) 4.6 x10(3) Normal 4.5-10.0 [facility]ly [facility] Comment on above: Performed By: #### L 200.0010 ####ML [facility] ONJWTANWQX[address] [place] [address] 19383 CMPon 09-22-2017 A:G RATIO 1.55 Normal 1.1-2.5 Formerly [facility] Comment on above: Performed By: #### L 100.0005, L100.0040 ####ML - [id number] [place] [address] 26088 Albumin mass conc 4.5 g/dL Normal 3.5-5.2 Formerly [facility] Comment on above: Performed By: #### L 100.0005, L100.0040 ####ML - NELENQSASF[address] [place] [address] 36403 ALK. PHOS 65 U/L Normal 35-105 Former[facility] Comment on above: Performed By: #### L 100.0005, L100.0040 ####ML - MWQLTWMPJG[address] [place] [address] 45630 ALT enzyme act/vol 23 U/L Normal 5-33 [facility] Comment on above: Performed By: #### L 100.0005, L100.0040 ####ML - AYRSTEGRCM[address] [place] [address] 46882 Anion gap 3 molar conc 17.8 mmol/L Normal 15-22 U Count includes the [facility] Comment on above: Performed By: #### L 100.0005, L100.0040 ####ML - DCDCATVINH[address] [place] [address] 05435 AST enzyme act/vol 17 U/L Normal 5-32 [facility] Comment on above: Performed By: #### L 100.0005, L100.0040 ####[facility] [address] [place] [address] 31769 Bilirubin Ql (U) 0.4 mg/dL Normal 0.2-1.2 [facility] Comment on above: Performed By: #### L 100.0005, L100.0040 ####ML [facility] XDONAN[address] [place] [address] 64521 Calcium mass conc 9.4 mg/dL Normal 8.8-10.2 Formerly [facility] Comment on above: Performed By: #### L 100.0005, L100.0040 ####ML - JXPMVXGLFY[address] [place] [address] 40561 Chloride molar conc 99 mmol/L Normal 98-107 [facility] Comment on above: Performed By: #### L 100.0005, L100.0040 ####ML - GKBLJPTNAB[address] [place] [address] 03641 Creatinine mass conc 0.68 mg/dL Normal 0.50-0.90 [facility] Comment on above: Performed By: #### L 100.0005, L100.0040 ####ML - [address] [address] eGFR if AFR KARLA > 60 ml/min/1.73m2 Normal [facility] Comment on above: Result Comment: eGFR >= [...] By: #### L 100.0005, L100.0040 ####ML - [id number] [place] [address] eGFR nonAFR Karla > 60 ml/Min/1.73m2 Normal [facility] Comment on above: Performed By: #### L 100.0005, L100.0040 ####ML - ZNXLHOJIHR[address] [place] [address] 6[address] Globulin Calculated mass conc (S) 2.9 g/dL Normal 1.5-4.5 [facility] Comment on above: Performed By: #### L 100.0005, L100.0040 ####ML - AGRQKAKNGE[address] [place] [address] Glucose mass conc 97 mg/dL Normal 82-115 Former[facility] Comment on above: Performed By: #### L 100.0005, L100.0040 ####ML - SLXRNDQIJG963 [place] [address] Potassium molar conc 3.8 mmol/L Normal 3.5-5.0 [facility] Comment on above: Performed By: #### L 100.0005, L100.0040 ####ML - TWZHEJODIQ997 [place] [address] Protein mass conc 7.4 g/dL Normal 6.4-8.3 Former[facility] Comment on above: Performed By: #### L 100.0005, L100.0040 ####ML - KYGSSDUCND763 [place] [address] Sodium molar conc 141 mmol/L Normal 135-145 [facility] Comment on above: Performed By: #### L 100.0005, L100.0040 ####ML - IQSTTNQZRR531 [place] [address] TCO2 28 mmol/L Normal 22-29 [facility] Comment on above: Performed By: #### L 100.0005, L100.0040 ####ML - YSIZMPFQEG475 [place] [address] Urea nitrogen mass conc 13 mg/dL Normal 8-23 [facility] Comment on above: Performed By: #### L 100.0005, L100.0040 ####ML - VYQPORQCJN234 [place] [address] LIPID PANELon 09-22-2017 Cholesterol in HDL mass conc 70 mg/dL Normal [facility] Comment on above: Result Comment: Astrid onal Cholesterol Education Program (NCEP) guidelines:<40 mg/dL: Low HDL-Cholesterol(major risk factor for CHD)> or = 60 mg/dL: High HDL-Cholesterol(negative risk factor for CHD)HDL-cholesterol is affected by a number of factors,e.g., smoking, exercise, hormones, sex, and age.4th Generation Test; Results may be approximately 7% lowerthan previous values. Performed By: #### L 100.0005, L100.0040 ####ML - SIOAGBFNDH833 [place] [address] Cholesterol in LDL mass conc 83 mg/dL Normal [facility] Comment on above: Result Comment: LDL: OPTIMAL FOR PEOPLE AT VERY HIGH RISK <70 OPTIMAL <100 NEAR OPTIMAL 100-129 BORDERLINE HIGH 130-159 HIGH 160-189 VERY HIGH >=190Source: 2008 NCEP ATP III, ADA GuidelinesReviewed: August, Performed By: #### L 100.0005, L100.0040 ####ML - XGPUUGINMC[address] [place] [address] 16181 Cholesterol in LDL/Cholesterol in HDL mass ratio 1.2 Normal [facility] Comment on above: Performed By: #### L 100.0005, L100.0040 ####ML - [address] [address] Cholesterol in VLDL mass conc 17 mg/dL Normal 6-40 [facility] Comment on above: Performed By: #### L 100.0005, L100.0040 ####ML - RDNDVLPAHG[address] [place] [address]111 Cholesterol mass conc 170 mg/dL Normal 130-200 [facility] Comment on above: Performed By: #### L 100.0005, L100.0040 ####ML - UOSGKLXEUL[address] [place] [address] 69504 Triglyceride mass conc 87 mg/dL Normal [facility] Comment on above: Result Comment: TRIG : DESIRABLE: <150 mg/dL Performed By: #### L 100.0005, L100.0040 ####ML - PHZLNPSRQN[address] [place] [address]13 SCREEN DIGITAL BREAST TOMOon 09-22-2017 SCREEN DIGITAL BREAST JIMNEA [address] [address]Fkef: Warner GOMEZ: SLY ODELL III, M.D.: 51 Age: 62 Sex: FAcct: [id number] Loc: RAD MAMMExam Date: 09/22/17 Status: REG CLIRadiology No.: [id number] Number: [id number] # Type/[id number] MAMMO / SCREEN DIGITAL BREAST JIMENA#[id number] - SCREEN DIGITAL BREAST TOMOBILATERAL DIGITAL SCREENING MAMMOGRAM 3D/2D WITH CAD: 09/22/2017CLINICAL: Annual Screening.Comparison is made to exam dated: 09/21/2016 mammogram - [facility]. There are scattered fibroglandular elements in [...] patient has been or will be contacted.Lito Adam M.D.ab/:09/22/2017 13:30:56Imaging Technologist(s): MICHEL Joseph)(Josué), [facility] Center[facility] sent: BIRADS 0 - AbnormalBI-RADS: 0 REPORT SIGNATURE ON FILE Reported By: LITO ADAM M.D. << Signature on File>> Reported By: LITO ADAM M.D. Signed By: LITO ADAM M.D.Tests performed at:[address] [phone] Normal [facility] PAP(Lb),rflx Hion 08-03-2017 DIAGNOSIS Normal [facility] Comment on above: Order Comment: Speci men Comment: [id number] Comment: No. of containers..01 ThinPrep Vial Result Comment: NEGA TIVE FOR INTRAEPITHELIAL LESION AND MALIGNANCY. Performed By: #### L 801.4000 ####LAB [facility] [place] [address] Note Normal [facility] Comment on above: Order Comment: Speci men Comment: [id number] Comment: No. of containers..01 ThinPrep Vial Result Comment: The Pap smear is a screening test designed to aid in thedetection of premalignant and malignant conditions of theuterine cervix. It is not a diagnostic procedure andshould not be used as the sole means of detecting cervicalcancer. Both false-positive and false-negative reports dooccur. Performed By: #### L 801.4000 ####[place] [address] Performed By [facility] Comment on above: Order Comment: Speci men Comment: [id number] Comment: No. of containers..01 ThinPrep Vial Result Comment: Milagros Zheng, Instrumentation Instructor (ASCP) Performed By: #### L 801.4000 ####[place] [address] Spec Adequacy [facility] Comment on above: Order Comment: [facility] Comment: [id number] Comment: No. of containers..01 ThinPrep Vial Result Comment: Sati sfactory for evaluation. Endocervical and/or squamous metaplasticcells (endocervical component) are present. Performed By: #### L 801.4000 ####[place] [address] Test Ordered Pap(Lb), rflx HPV Hi Normal [facility] Comment on above: Order Comment: Speci men Comment: [id number] Comment: No. of containers..01 ThinPrep Vial Performed By: #### L 801.4000 ####[place] [address] . . Normal . [facility] Comment on above: Order Comment: [facility] Comment: [id number] Comment: No. of containers..01 ThinPrep Vial Performed By: #### L 801.4000 ####[place] [address] . [facility] Comment on above: Order Comment: [facility] Comment: [id number] Comment: No. of containers..01 ThinPrep Vial Result Comment: The HPV DNA reflex criteria were not met with this specimenresult therefore, no HPV testing was performed.Performed at: [address], [place] [id number] Director: Kyung Mathews MD, Phone: [phone] Performed By: #### L 801.4000 ####[place] [address] SURGICALon 03-05-2017 SURGICAL Cecum - CECAL POLYP [id number] DESCRIPTION: Labeled cecal polyp X2. Received in [...] FERNANDA VANN M.D. 03/09/17 1617 ---- Normal [facility] Comment on above: Performed By: #### P -S ####ML - UH [id number] [place] [address] SURGICAL PATHOLOGY, CONVERTE Don 11-14-2014 [facility] SURGICAL PATHOLOGY, CONVERTE Don 09-18-2010 [facility] CYTOLOGY GASFITTER, CONVERTEDon [facility] CYTOLOGY GASFITTER, CONVERTEDon [facility] CYTOLOGY GASFITTER, CONVERTEDon [facility] Vital Signs Date Time Vital Sign Value Performing Clinician Faci lity 08-08-2023 12:28-0400 Body temperature 97.2 [degF] [facility] 08-08-2023 12:28-0400 Diastolic blood pressure 66 mm[Hg] [facility] 08-08-2023 12:28-0400 Heart rate 87 /min [facility] 08-08-2023 12:28-0400 Respiratory rate 16 /min [facility] 08-08-2023 12:28-0400 SaO2% (BldA) [Mass fraction] 99 % [facility] 08-08-2023 12:28-0400 Systolic blood pressure 133 mm[Hg] [facility] 08-08-2023 10:10-0400 Body height 165.1 cm [facility] 08-08-2023 10:10-0400 Body mass index (BMI) [Ratio] 37 kg/m2 [facility] 08-08-2023 10:10-0400 Body weight 100.92 kg [facility] 10-29-2021 17:49-0400 Body height 165.1 cm [facility] Work Phone: 10-29-2021 17:49-0400 Body mass index (BMI) [Ratio] 33 kg/m2 [facility] Work Phone: 10-29-2021 17:49-0400 Body temperature 98.2 [degF] [facility] Work Phone: 10-29-2021 17:49-0400 Body weight 90 kg [facility] Work Phone: 10-29-2021 17:49-0400 Diastolic blood pressure 75 mm[Hg] [facility] Work Phone: 10-29-2021 17:49-0400 Heart rate 70 /min [facility] Work Phone: 10-29-2021 17:49-0400 Respiratory rate 16 /min [facility] Work Phone: 10-29-2021 17:49-0400 SaO2% (BldA) [Mass fraction] 97 % [facility] Work Phone: 10-29-2021 17:49-0400 Systolic blood pressure 156 mm[Hg] [facility] Work Phone: Encounters Encounter Date Encounter Type Care Provider Facility Start: 10-24-2024 ambulatory [facility] Facility: [facility] Start: 07-27-2024 End: 07-27-2024 Refill Lito Mckeon PA-C Work Phone: Neurology Comment on above: Refill Request Start: 02-04-2024 End: 02-04-2024 ambulatory [facility] Facility:[facility] Start: 08-08-2023 End: 08-08-2023 Emergency department patient visit [facility] Work Phone: Start: 06-07-2023 End: 06-07-2023 ambulatory LITO MCKEON Facility:[facility] Start: 01-19-2023 End: 01-19-2023 ambulatory [facility] Work Phone: Start: 01-19-2023 End: 01-19-2023 Patient encounter procedure [facility]Laboratory Work Phone: Start: 10-19-2022 End: 10-19-2022 ambulatory [facility] Work Phone: Start: 10-19-2022 End: 10-19-2022 Patient encounter procedure [facility]Outpatient Breast Imaging Start: 04-02-2022 Refill James floyd MD Work Phone: Neurology Comment on above: Refill Request Start: 10-29-2021 End: 10-29-2021 Emergency department patient visit [facility] Start: 10-15-2021 End: 10-15-2021 Patient encounter procedure [facility] Start: 10-01-2021 End: 10-01-2021 ambulatory Luisana Myers SKIP TENDER.MICROWAVE RADIO TECHNICIAN Work Phone: Neurology Comment on above: Focal epilepsy (HCC) (Primary Dx) Start: 10-01-2021 End: 10-01-2021 Telemedicine consultation with patient Luisana Myers SKIP TENDER.MICROWAVE RADIO TECHNICIAN Work Phone: [facility] Start: 04-01-2018 Patient encounter procedure SLY ODELL Facility:[facility] Start: 09-29-2017 Patient encounter procedure SLY ODELL Facility:[facility] Start: 09-22-2017 Patient encounter procedure SLY ODELL Facility:[facility] Start: 07-29-2017 Ambulatory SLY ODELL Facil [facility] Start: 03-05-2017 Ambulatory HUA DALE Facility :[facility] Start: 11-15-2014 Documentation procedure Hua Dale MD Work Phone: [facility] Start: 11-15-2014 Historic EMR Hua mcdonnell MD Work Phone: [facility] Start: 09-18-2010 Documentation procedure Jorge Bra vo [facility] Start: 09-18-2010 Historic EMR Favian Burrellvo [facility] Start: 05-29-2008 Documentation procedure Sly Odell III, MD Work Phone: [facility] Start: 05-29-2008 Historic EMR Sly Odell MD Work Phone: [facility] Start: 05-27-2007 Documentation procedure Sly Odell III, MD Work Phone: [facility] Start: 05-27-2007 Historic EMR Sly Odell MD Work Phone: [facility] Start: 05-11-2005 Documentation procedure Sly Odell III, MD Work Phone: [facility] Start: 05-11-2005 Historic EMR Sly Odell MD Work Phone: [facility] Procedures Date Procedure Procedure Detail Performing [...] Work Phone: Start: 09-22-2017 Mammography Luisana Myers SKIP TENDER.MICROWAVE RADIO TECHNICIAN Work Phone: Start: 01-19-2017 H/O: surgery S/P lobectomy of brain Luisana Myers SKIP TENDER.MICROWAVE RADIO TECHNICIAN Work Phone: Start: 11-14-2014 SURGICAL PATHOLOGY, CONVERTED Hua Dale MD Work Phone: Start: 09-18-2010 SURGICAL PATHOLOGY, CONVERTED Favian Feldman Start: 05-28-2008 CYTOLOGY GASFITTER, CONVERTED Sly Odell MD Work Phone: Start: 05-25-2007 CYTOLOGY GASFITTER, CONVERTED Sly Odell MD Work Phone: Start: 05-07-2005 CYTOLOGY GASFITTER, CONVERTED Sly Odell MD Work Phone: Plan of Treatment Date Care Activity Detail Author Start: 01-15-2028 RSV Vaccine (1 - 1-dose 75+ series) RSV Vaccine (1 - 1-dose 75+ series) [facility] Start: 05-17-2024 Advance Directive Discussion Advance Directive Discussion [facility] Start: 01-16-2024 Covid-19 Vaccine ( season) Covid-19 Vaccine ( season) [facility] Start: 01-16-2024 Influenza vaccination Influenza Vaccine (#1) [facility] Start: 01-15-2023 [facility] Start: 09-22-2022 Lipid 1996 panel - Serum or Plasma Lipid Screening [facility] Start: 09-22-2022 Lipid panel Lipid Screening [facility] Start: 09-22-2022 LIPID SCREEN LIPID SCREEN [facility] Start: 05-17-2022 Advance Directive Discussion Advance Directive Discussion [facility] Start: 01-15-2022 Influenza vaccination [facility] Start: 05-17-2021 ADVANCE DIRECTIVE DISCUSSION ADVANCE DIRECTIVE DISCUSSION [facility] Start: 09-22-2020 DIABETES SCREEN DIABETES SCREEN [facility] Start: 09-22-2020 Diabetes Screening Diabetes Screening [facility] Start: 04-22-2019 Pneumococcal Vaccine: 50+ (2 of 2 - PCV) Pneumococcal Vaccine: 50+ (2 of 2 - PCV) [facility] Start: 09-22-2018 Mammography [facility] Start: 09-22-2018 Screening for malignant neoplasm of breast Mammogram Screening [facility] Start: 2018 BONE DENSITY BONE DENSITY [facility] Start: 2018 Bone Density Screening Bone Density Screening [facility] Start: 2018 Pneumococcal Vaccine: 65+ (1 - PCV) Pneumococcal Vaccine: 65+ (1 - PCV) [facility] Start: 2018 PNEUMOCOCCAL: 65+ (1 - PCV) PNEUMOCOCCAL: 65+ (1 - PCV) [facility] Start: 2018 PNEUMOVAX AGE 65 AND OVER WITH 5YR LOOKBACK (#1) PNEUMOVAX AGE 65 AND OVER WITH 5YR LOOKBACK (#1) [facility] Start: 2018 Screening for osteoporosis Bone Density Screening [facility] Start: 2003 SHINGRIX VACCINE (1 of 2) SHINGRIX VACCINE (1 of 2) [facility] Start: 1998 COLOGUARD (FIT-DNA) COLOGUARD (FIT-DNA) [facility] Start: 1998 Colonoscopy COLONOSCOPY [facility] Start: 1998 COLORECTAL CANCER SCREENING COLORECTAL CANCER SCREENING [facility] Start: [address] COLONOGRAPHY [facility] Start: 1998 FECAL OCCULT BLOOD FECAL OCCULT BLOOD [facility] Start: 1998 Screening for malignant neoplasm of colon [facility] Start: 1998 SIGMOIDOSCOPY SIGMOIDOSCOPY [facility] Start: 01-15-1972 Urine microalbumin profile [facility] Start: 1971 ANNUAL PCP TEAM CHRONIC DISEASE VISIT ANNUAL PCP TEAM CHRONIC DISEASE VISIT [facility] Start: 1971 BP CONTROLLED (<130/80) BP CONTROLLED (<130/80) [facility] Start: 1958 COVID-19 VACCINE (#1) COVID-19 VACCINE (#1) [facility] Start: 1953 COVID-19 VACCINE (#1) COVID-19 VACCINE (#1) [facility] Patient Education [facility] Work Phone: Patient referral [facility] Work Phone: Immunizations Immunization Date Immunization Notes Care Provider Fa sunny 02-20-2009 influenza virus vacc ine, unspecified formulation Sly Odell III, MD Work Phone: [facility] Payers Date Payer Category Payer Self-pay [id number] 2015 Medicare [id number] 2015 Medicare (Managed Care) [employer] O [id number] 2015 Unknown [employer]NA MILLAN S AND BL[employer]I MEDIBLUE O [id number] 2015-Present [phone] [address] [place] [address] [facility] [id number] Medicare [id number] Unknown [id number] Unknown [id number] Unknown [id number] Unknown [id number] Unknown [id number] Social History Date Type Detail Facility Start: 12-22-2010 Tobacco smoking stat us CAIS Never smoked tobacco [facility] Start: 12-22-2010 Tobacco use and exposure Smokeless tobacco non-user [facility] Start: 08-08-2012 End: 02-15-2020 Alcohol intake Current non-drinker of alcohol (finding) [facility] Start: 1955 Sex Assigned At Not on file [facility] Start: 02-18-2021 End: 08-08-2023 Tobacco smoking status CAIS Unknown if ever smoked [facility] Start: 1955 Sex Assigned At Female [facility] Start: 02-15-2020 End: 06-07-2023 History of Social function [facility] Start: 02-15-2020 End: 06-07-2023 Tobacco use panel [facility] Adult Depression Screening Assessment 0 [facility] Start: 01-16-2020 End: 02-15-2020 Exposure to SARS-CoV-2 (event) Not sure [facility] Medical Equipment Procedure Code Equipment Code Equipment Original Text Equipment Identifier Dates Patch Duramatrix Collagen Matrix 3x3in Dural Conformable Resorbable - [id number] Start: 07-27-2016 Plate Low Profil e Titanium 12mm Bone 2 Hole Bar 1.5mm Screw Nonsterile - [id number] Start: 07-27-2016 Screw 1.5mm 4mm Bone Self Drill Cross Pin Craniomaxillofacial - [id number] Start: 07-27-2016 Functional Status Date Assessment Result Facility 07-31-2016 Are you deaf, or do you have serious difficulty hearing No 07/31/2016 12:22 PM EDT Angeline Strickland, MADONNA No [facility] Work Phone: 07-31-2016 Are you blind, or do you have serious difficulty seeing, even when wearing glasses No 07/31/2016 12:22 PM EDT Angeline Strickland RN No [facility] 07-31-2016 Do you have serious difficulty walking or climbing stairs No 07/31/2016 12:22 PM EDT Angeline Strickland RN No [facility] 07-31-2016 Do you have difficul ty dressing or bathing No 07/31/2016 12:22 PM EDT Angeline Strickland RN No [facility] 07-31-2016 Because of a physica l, mental, or emotional condition, do you have difficulty doing errands alone such as visiting a physician's office or shopping No 07/31/2016 12:22 PM EDT Angeline Strickland RN No [facility] Mental Status Date Assessment Result Facility 07-31-2016 Because of a physica l, mental, or emotional condition, do you have serious difficulty concentrating, remembering, or making decisions No 07/31/2016 12:22 PM EDT Angeline Strickland RN No [facility] Clinical Notes 07-27-2016 to 07-27-2024 Telephone Encounter - Meoldy Garay APRN.CNP - 07/27/2024 4:49 PM EDTTelephone [...] IN THE MORNING Authorizing Provider: MELODY GARAY APRN.MICROWAVE RADIO TECHNICIAN [facility] 07-27-2024 Miscellaneous Notes Formattin g of [...] Number: electronic Pharmacy Name: [facility] Number: [id number] Generic/ brand: Generic 30 or 90 day supply requested: 90 Last appointment: 06/07/23 Next Appointment: None, Patient needs appointment, sent message to S51 to contact patient to schedule annual visit. Patient of Dr. Harpreet Gomez [id number] [address] [facility] [address] documented in this encounter [facility] 07-27-2024 Telephone encount er Note Prescription Refill: Requested by: pharmacy Please E-Scribe Caller Contact Number: electronic Pharmacy Name: [facility] Number: [phone] Generic/ brand: Generic 30 or 90 day supply requested: 90 Last appointment: 06/07/23 Next Appointment: None, Patient needs appointment, sent message to S51 to contact patient to schedule annual visit. Patient [facility] Dr[facility] Harpreet Gomez [id number] [address] [facility] [address] [facility] 06-08-2023 Note HNO ID: [id number] Author: LITO MCKEON PA-C Service: ? Author Type: Physician Team Leader Surgery Type: Progress Notes Filed: 06/08/2023 09:12 Note Text: [facility] VIRTUAL VISIT I have communicated my name and active licensure. The patient's identity and physical location were verified at the time of this visit. Either the patient or their legal kiosk sales representative has been informed of the risks and [...] Take 1 tablet by mouth once daily. Jc-I1-egq-azcu-ppl-kulw-boron (CALTRATE 600+D PLUS MINERALS) 600 mg calcium- [...] sleep apnea) Port - wine birthmark right hindu Tinnitus of left ear PAST SURGICAL HISTORY [...] on medications and lifestyle. Lito Mckeon PA-C [facility] 04-02-2022 Miscellaneous Notes Formattin g of this [...] by: patient Please E-Scribe Caller Contact Number: [phone] [facility] Number: [id number] Generic/ brand: Generic 30 or 90 day supply requested: 90 Last appointment: 05/23/21 Next Appointment: none scheduled Patient of Dr. Mullins documented in this encounter [facility] 10-01-2021 History of Presen t illness Narrative [facility] VIRTUAL VISIT HISTORY OF PRESENT [...] Take 1 tablet by mouth once daily. 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 07/27/2016 01/19/2017 Focal epilepsy with impairment of consciousness, intractable 03/25/2016 07/01/2016 Partial epilepsy with impair ment of consciousness, intractable 07/05/2002 01/19/2017 documented as of this encounter (statuses as of 10/01/2021) [facility]03-[facility]2017 History of Past illness Narrative* Problem Noted Date Resolved Date 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 07/27/2016 01/19/2017 Focal epilepsy with impairment of consciousness, intractable 03/25/2016 07/01/2016 Partial epilepsy with impair ment of consciousness, intractable 07/05/2002 01/19/2017 documented as of this encounter (statuses as of 04/02/2022) [facility] History of Past illness Narrative* Problem Noted Date Diagnosed Date Resolved Date 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 07/27/2016 01/19/2017 Focal epilepsy with impairme nt of consciousness, intractable 03/25/2016 07/01/2016 Partial epilepsy with impair ment of consciousness, intractable 07/05/2002 01/19/2017 documented as of this encounter (statuses as of 02/04/2023) [facility] History of Past illness Narrative* Problem Noted Date Diagnosed Date Resolved Date 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 07/27/2016 01/19/2017 Focal epilepsy with impairme nt of consciousness, intractable 03/25/2016 07/01/2016 Partial epilepsy with impair ment of consciousness, intractable 07/05/2002 01/19/2017 documented as of this encounter (statuses as of 02/05/2023) [facility] Author Robert Chacon [facility] August 08, 2023 12:19pm Note Date/Time August 08, 2023 11: 17am [facility] Medical Records Department [address] [place] [address] Emergency Department Summary 08/08/23 MR#: [id number] Acct: [id number] Name: CASSY GOMEZ Rep #:[id number] : 1955 68 From: Robert Chacon [...] mg-vit E 90 mg-zinc 40 mg-copper 1 nk-oddwsa-okacjr capsule 1 ea PO BID eyes 02/19/20 [...] as calcific tendinitis. Patient will be given Hugo for pain at home. She will be [...] EACH tablet 1 ea PO DAILY vit C,R-Ko-dilqo-lutein-zeaxan 1 EACH capsule 1 ea PO BID [...] your Primary Care Provider. Call [facility] ([phone]) or report to the closest Emergency Room. Call 911 if necessary. 08/08/23 1219 <Electronically signed by Robert Chacon DO> Cosigner Signature (if applicable): CC: Dr. 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) Localization-related (focal) (partial) epilepsy and epileptic syndromes with complex partial seizures, with intractable epilepsy documented in this encounter [facility] Summary Purpose Family History No Family History Records FoundNo Family History Records FoundNo Family History Records FoundNo Family History Records Found Advance Directives No Advanced Directives Records FoundDocuments on File Type Date Recorded Patient Actuarial Trainee Expl anation Advance Directive(s) 07/21/2016 9:17 AM Advance Directive(s) 07/21/2016 12:24 PM Advance Directive(s) 07/21/2016 12:25 PM Advance Directive(s) 03/25/2016 8:13 PM Advance Directive Response Recorded Date/ Time Living Will No November 18, 2020 1 2:18pm Power of Negative Turner Apprentice No November 18, 2020 12:18pm Advance Directive Response Recorded Date/ Time Living Will No October 29, 2021 7:29pm Power of Negative Turner Apprentice No October 29 7:29pm Documents on File Type Date Recorded Patient Actuarial Trainee Expl anation Advance Directive(s) 07/21/2016 12:25 PM Advance Directive Response Recorded Date/ Time Living Will No August 08, 2023 10:42am Power of Negative Turner Apprentice No August 07 10:42am Chief Complaint and Reason for Visit Chief Complaint SCREENING Chief Complaint SCREENING FALL Chief Complaint shoulder pain and fo ot swelling. Additional Source Comments INFORMATION SOURCE (unrecogn ized section and content) DATE CREATED AUTHOR 11/04/2017 [facility] DATE CREATED AUTHOR AUTHOR'S ORGANIZ ATION 04/25/2018 [facility] DATE CREATED AUTHOR AUTHOR'S ORGANIZ ATION 06/08/2023 [facility] DATE CREATED AUTHOR AUTHOR'S ORGANIZ ATION 10/21/2024 [facility] Source Comments (unrecognize d section and content) In the event this informatio n is protected by the Federal Confidentiality of Alcohol and Drug Abuse Patient Records regulations: The Federal rules restrict any use of the information to criminally investigate or prosecute any alcohol or drug abuse patient.[facility] the event this information is protected by the Federal Confidentiality of Alcohol and Drug Abuse Patient Records regulations: The Federal rules restrict any use of the information to criminally investigate or prosecute any alcohol or drug abuse patient.[facility] the event this information is protected by the Federal Confidentiality of Alcohol and Drug Abuse Patient Records regulations: The Federal rules restrict any use of the information to criminally investigate or prosecute any alcohol or drug abuse patient.[facility] the event this information is protected by the Federal Confidentiality of Alcohol and Drug Abuse Patient Records regulations: The Federal rules restrict any use of the information to criminally investigate or prosecute any alcohol or drug abuse patient.[facility] the event this information is protected by the Federal Confidentiality of Alcohol and Drug Abuse Patient Records regulations: The Federal rules restrict any use of the information to criminally investigate or prosecute any alcohol or drug abuse patient.[facility] HospitalIn the event this information is protected by the Federal Confidentiality of Alcohol and Drug Abuse Patient Records regulations: The Federal rules restrict any use of the information to criminally investigate or prosecute any alcohol or drug abuse patient.[facility] HospitalIn the event this information is protected by the Federal Confidentiality of Alcohol and Drug Abuse Patient Records regulations: The Federal rules restrict any use of the information to criminally investigate or prosecute any alcohol or drug abuse patient.[facility] HospitalIn the event this information is protected by the Federal Confidentiality of Alcohol and Drug Abuse Patient Records regulations: The Federal rules restrict any use of the information to criminally investigate or prosecute any alcohol or drug abuse patient.[facility] Reason for Visit (unrecogniz ed section and content) Reason Comments Follow Up Refill Request Reason Onset Date Comments Refill Request 04/02/2022 Reason Comments Refill Request Care Teams (unrecognized sec tion and content) Watershed Engineer Relationship Specialty Start Date End Date Lb Rangel MD [address] [phone] PCP - General Internal Medicine 10/26/11 Dominique Yoder MD Attending Neurology 10/26/11 Watershed Engineer Relationship Specialty Start Date End Date Lb Rangel MD [address] [phone] PCP - General Internal Medicine 10/26/11 Dominique Yoder DO Attending Neurology 10/26/11 Team Status: Active Member Role Status Dates Dr. Anamika Chowdhury MD Family Provider Active Dr. Anamika Chowdhury MD Primary Care Provider Active Team Status: Inactive Member Role Status Dates Dr. Anamika Chowdhury MD Primary Care Prov ider, Attending Provider, Referring Provider Active Watershed Engineer Relationship Specialty Start Date End Date Taj José Miguel Ronnie [address] [place] [address] PCP - General 09/01/00 10/25/11 Lb Rangel MD [address], [address] [phone] PCP - General Internal Medicine 10/26/11 Dominique Yoder DO [address], [address] [phone] Attending Neurology 10/26/11 Watershed Engineer Relationship Specialty Start Date End Date Lb Rangel MD [address], [address] [phone] PCP - General Internal Medicine 10/26/11 Dominique Yoder DO [address], [address] [phone] Attending Neurology 10/26/11 Team Status: Inactive Member Role Status Dates Dr. Anamika Chowdhury MD Primary Care Provider Active Dr. Robert Chacon DO Emergency Provider Active Watershed Engineer Relationship Specialty Start Date End Date Lb Rangel MD [address] [place] [phone] PCP - General Internal Medicine 10/26/11 [address]oder [address] [facility] [place] [phone] Attending Neurology 10/26/11 Goals (unrecognized section and [...] BE BASED ON THE PRIMARY CLINICAL RECORDS. [employer] provides no warranty or guarantee of the accuracy or completeness of information in this document.
== END | disposition home or self-care (01) ==
LOC: OPBI 10-25 07:18
PROVIDERS: PCP Family Medicine; Referring Provider Family Medicine; Visit Provider Family Medicine
DX: Z12.31 Encounter for screening mammogram for malignant neoplasm of breast (principal)
CPT/HCPCS: 77063; 77067

== ENCOUNTER → 2025-01-19 | Outpatient (CLI) | payer MEDICARE, SELFPAY ==
[2025-01-19 10:35] LABS: Hematocrit 42.8 % (37-47); Hemoglobin 14.5 g/dL (12.0-15.0); Immature Granulocytes Count 0.030 X10^3/uL (0.0-0.0); Mean Corp Hgb Conc 33.9 g/dL (32-36); Mean Corpuscular Volume 92.6 fL (81-99); Mean Platelet Vol. 10.0 fl (6.2-12.0); NRBC Flagged by Analyzer 0 % (0-5); Platelet Count 225 K/mm3 (150-450); RBC Distribution Width CV 12.3 % (11.6-14.6); RBC Distribution Width SD 42.0 fl (35.1-43.9); Red Blood Count 4.62 M/mm3 (4.2-5.4); White Blood Count 6.6 K/mm3 (4.4-11.0)
[2025-01-19 10:41] LABS: AST(SGOT) 24 U/L (<=31); Alanine Aminotransfer ALT/SGPT 31 U/L (<=34); Albumin, Serum 4.1 g/dL (3.4-4.8); Alkaline Phosphatase 69 U/L (35-104); Anion Gap 11 (5-15); BUN 17 mg/dL (4-19); BUN/Creat Ratio 18.7 RATIO (10-20); Calcium,Total 9.7 mg/dL (7.6-11.0); Carbon Dioxide 25.9 mmol/L (21.0-32.0); Chloride 103 mmol/L (98-108); Cholesterol 155 mg/dL (<=200); Globulin 3.1 g/dL (2.2-4.2); Glucose 107 mg/dL (70-99); Low Density Lipoprotein Calc. 64 mg/dL; Potassium 4.6 mmol/L (3.3-5.1); Triglycerides 227 mg/dL; Very Low Density Lipoprotein 45 mg/dL (5-40); cholesterol:hdl ratio screen 3.36
== END | disposition home or self-care (01) ==
LOC: LAB 08:47
PROVIDERS: PCP Family Medicine; Referring Provider Family Medicine; Visit Provider Family Medicine
DX: I10 Essential (primary) hypertension (principal); E78.5 Hyperlipidemia, unspecified; K21.9 Gastro-esophageal reflux disease without esophagitis; R73.03 Prediabetes
CPT/HCPCS: 36415; 80053; 80061; 83036; 85025

== ENCOUNTER → 2025-05-11 | Outpatient (CLI) | payer MEDICARE, SELFPAY ==
--- NOTE | 2025-05-11 15:50 | CT_ITS ---
PROCEDURE: EXTREMITY UPPER WITHOUT CONTRA 05/11/2025 REASON FOR EXAM: ROTATOR CUFF STRAIN TECHNIQUE: Procedure Code: CTEUWO Modality: CT Procedure: EXTREMITY UPPER WITHOUT CONTRA Coronal and Sagittal reconstruction series were provided. One or more dose reduction techniques were used (e.g., Automated exposure control, adjustment of the mA and/or kV according to patient size, use of iterative reconstruction technique. RADIATION DOSE SUMMARY: DLP: 642 mGycm FINDINGS: No evidence of adenopathy or soft tissue mass. Right chest wall appears normal. Visualized portions of the right lung appear clear. 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 No evidence of fracture. Degenerative changes in the superolateral right humeral head. Slight marginal osseous ridging off the glenohumeral joint, compatible with arthrosis. Supraspinatus muscle atrophy. Mild subcoracoid bursitis. Supraspinatus tendon thinning with rotator cuff tear not excluded. Thoracic spondylosis. CT/Extremity Upper without Contra IMPRESSION: Supraspinatus muscle atrophy. Supraspinatus tendon thinning with rotator cuff tear not excluded. Consider MRI if indicated. 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 Slight glenohumeral joint arthrosis. Thoracic spondylosis. Reading Location: [facility]
--- OUTSIDE RECORDS SUMMARY | 2025-05-11 15:51 | XMS RPT_ITS | CCD ---
Author Organization [facility] Care Team Providers Care Environmental Economist Name Role Phone DALE, HUA Petersen Unavailable Unavailable ODELL, ESTUARDO W Unavailable Unavailable ODELL, ESTUARDO W Unavailable Unavailable ODELL, ESTUARDO W Unavailable Unavailable ODELL, ESTUARDO W Unavailable Unavailable Rodney IVY, Lb Luz Primary Care Provider Dominique Yoder MD Unavailable [phone] Lb Rangel MD Primary Care Provider [phone] Dominique Yoder DO Unavailable [phone] José Miguel Vang Primary Care Provider [phone] Lb Rangel MD Primary Care Provider Dominique Yoder DO Unavailable [phone] LITO MCKEON Attending Unavailable LB RANGEL Primary Care Unavailable Lb Rangel MD Primary Care Provider [phone] Dr. Anamika Chowdhury MD Primary Care Provider [phone] Dr[address] Anamika Chowhdury MD Attending Provider Dr. Anamika Chowdhury MD Referring Provider Anamika Chowdhury Attending Unavailable Anamika Chowdhury Primary Care Unavailable Anamika Chowdhury Referring Unavailable Anamika Chowdhury Attending Unavailable Anamika Chowdhury Primary Care Unavailable Anamika Chowdhury Referring Unavailable Anamika Chowdhury Attending Unavailable Anamika Chowdhury Primary Care Unavailable Anamika Chowdhury Referring Unavailable Medications Current Medications Medication Drug Class(es) Dates Sig (Normalized) Sig (Original) acetaminophen 325 mg / HYDROcodone bitartrate 5 mg oral tablet (3 sources) Opioid Agonist Start: 08-08-2023 take 1 tablet by mouth every six hours as needed for pain Hydrocodone-Aceta minophen 5-325 mg tablet Active 1 {tbl} PO EVERY 6 HOURS as needed for pain 12 3 0 August 08, 2023 Strain of shoulder Start: 08-08-2023 take 1 tablet by emma th every six hours Hydrocodone-Acetaminophen Active 1 TABLE T PO EVERY 6 HOURS 12 3 August 08, 2023 atorvastatin 20 mg oral tablet (15 sources) HMG-CoA Reductase Inhibitor Start: 11-26-2021 take 1 tablet by mouth once daily Atorvastatin (Lipitor) 20 mg tablet Active 20 mg PO DAILY November 26, 2021 12:00am Start: 02-19-2020 End: 11-05-2021 take 1 tablet by mouth once daily Atorvastatin 20 MG tablet Discontinued 20 mg PO DAILY February 19, 2020 12:00am November 05, 2021 9:24am cholesterol Comment on above: Take 20 mg by mouth once daily. Calcium (3 sources) Phosphate Binder, Calcium take 1 tablet by mouth once daily Mu-V5-vja-zinc-copier technician-m ang-boron (CALTRATE 600+D PLUS MINERALS) 600 mg calcium- 800 unit-40 mg chew Take 1 tablet by mouth once daily. Active take 1 tablet by emma th once daily Jx-H8-mam-uljr-gkh-quer-boron (CALTRATE 600+D PLUS MINERALS) 600 mg calcium- 800 unit-40 mg chew Take 1 tablet by mouth once daily. 0 Active Comment on above: Take 1 tablet by emma th once daily. calcium carbonate 1500 mg / cholecalciferol 800 unt oral tablet (7 sources) Vitamin D Start: 02-19-2020 Calcium Carbonate-Vitamin D3 1 EACH tablet Active 1 NMA PO DAILY February 19, 2020 12:00am supplement Start: 02-19-2020 Calcium Carbon ate-Vitamin D3 Active 1 EACH PO DAILY February 19, 2020 12:00am citalopram 10 mg oral tablet (12 sources) Serotonin Reuptake Inhibitor Start: 02-19-2020 End: 07-27-2024 take 1 tablet by mouth once daily Citalopram 10 MG tablet Active 10 mg PO DAILY February 19, 2020 12:00am anxiety Comment on above: Take 1 tablet by emma th every morning. COMPOUNDED PRESCRIPTION (4 sources) Start: 12-22-2010 COMPOUNDED PRESCRIPTION VNS (2008) Currently turned off 0 12/22/2010 Active Comment on above: VNS (2008) Currently turned off famotidine 20 mg oral tablet (15 sources) Histamine-2 Receptor Antagonist Start: 05-23-2021 take 1 tablet by mouth once daily Famotidine 20 mg tablet Active 20 mg PO DAILY November 26, 2021 8:21am reflux Start: 02-19-2020 End: 11-26-2021 take 1 tablet by mouth twice daily Famotidine 20 MG tablet Discontinued 20 mg PO TWICE A DAY February 19, 2020 12:00am November 26, 2021 8:23am reflux Comment on above: Take 1 tablet by emma th daily at bedtime. hydroCHLOROthiazide 12.5 mg / lisinopril 10 mg oral tablet (10 sources) Thiazide Diuretic, Angiotensin Converting Enzyme Inhibitor Start: 02-19-2020 Lisinopril-Hydroch lorothiazide 1 EACH tablet Active 1 NMA PO DAILY February 19, 2020 12:00am htn Start: 02-19-2020 Lisinopril-Hyd rochlorothiazide Active 1 EACH PO DAILY February 19, 2020 12:00am take 10-12.5 mg by mouth once lisinopril-hydrochlorothiazide (PRINZIDE,ZESTORETIC) 10-12.5 mg per tablet Take 1 tablet by mouth once daily. Active Comment on above: Take 1 tablet by emma th once daily. 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 360 tablet 3 06/07/2023 Active Start: 02-19-2020 Levetiracetam 750 MG tablet Active 2 {tbl} PO TWICE A DAY February 19, 2020 12:00am seizures Start: 02-19-2020 End: 04-02-2022 take 2 tablets by mouth twice daily Levetiracetam Active 2 TABLET PO TWICE A DAY February 19, 2020 12:00am Comment on above: Take 2 tablets by mo uth twice daily. Vit C,J-Bm-Dphnz-Lutein-Jamison te (5 sources) Start: 02-19-2020 Vit C,X-Om-Wpqgo-Lutein-Ze axan Active 1 EACH PO TWICE A DAY February 19, 2020 2:08pm Start: 02-19-2020 Vit C,E-Zn-Camera Repairman hi-Nzuasy-Wwkatw Active 1 EACH PO TWICE A DAY February 19, 2020 12:00am Vit C,S-Rk-Bwpdv-Lutein-Zeax an 1 EACH capsule (2 sources) Start: 02-19-2020 take 1 capsule by mouth twice daily Vit C,S-Nc-Cucva-Lutein-Zeaxan 1 EACH capsule Active 1 NMA PO TWICE A DAY February 19, 2020 12:00am eyes Start: 02-19-2020 take 1 capsule by mo uth twice daily Vit C,U-Rm-Eucje-Lutein-Zeaxan 1 EACH capsule Active 1 NMA PO TWICE A DAY February 19, 2020 12:00am Completed/Discontinued Medications Medication Drug Class(es) Dates Sig (Normalized) Sig (Original) alendronic acid 70 mg oral tablet (8 sources) Bisphosphonate Start: 02-19-2020 End: 11-05-2021 Alendronate 70 MG tablet Discontinued 70 mg PO February 19, 2020 12:00am November 05, [...] 07-21-2016 07-21-2016 Chronic Fracture of upper limb (10 sources) Closed fracture radial styloid; Translations: [Nondisplaced [...] injuries and conditions due to external causes (3 sources) Injury of left wrist; Translations: [Unspecified injury of left wrist, hand and finger(s), initial encounter] 11-06-2021 Episodic Other lower respiratory disease (7 sources) Cough; Translations: [Cough] 02-17-2021 Episodic Other nervous system disorders (8 sources) Mesial temporal lobe sclerosis; 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 10-28-2015 Chronic Other screening for suspected conditions (not mental disorders or infectious disease) (1 source) Encounter for screening mammogram for malignant neoplasm of breast; Translations: [Encounter for screening mammogram for malignant neoplasm of breast] Onset: 10-31-2024 Episodic Residual codes; unclassified (8 sources) Obstructive sleep apnea syndrome; Translations: [Obstructive sleep apnea (adult) (pediatric)] Onset: 10-28-2015 10-28-2015 Chronic Residual codes; unclassified (8 sources) Past history of procedure; Translations: [Presence of other specified functional implants] Onset: 10-28-2015 10-28-2015 Chronic Sprains and strains (3 sources) Shoulder strain; Translations: [Strain of unspecified muscle, fascia and tendon at shoulder and upper arm level, unspecified arm, initial encounter] 08-08-2023 Episodic Unclassified (1 source) Unknown / UNK(Unknown) Onset: 09-22-2017 Unclassified (7 sources) Age AND/OR growth finding; Translations: [65 years of age or older] 02-18-2021 Viral infection (7 sources) Disease caused by 2019-nCoV; Translations: [COVID-19] [...] Test Name Value Interpretation Reference Range Facility Absolute lymphocyte countOrd ered By: Anamika Chowdhury on 01-19-2025 Lymphocytes Auto (Unsp spec) [#/Vol] 2.20 10*3/uL 0.83-4.51 [facility] Absolute neutrophil countOrd ered By: Anamika Chowdhury on 01-19-2025 Neutrophils (Bld) [#/Vol] 3.5 10*3/uL 2.0-7.7 [facility] Anion gap in Serum or Plasma Ordered By: Anamika Chowdhury on 01-19-2025 Anion gap [Moles/Vol] 11 mmol/L 5-15 [facility] Automated lymphocyte count a s percentage of total leukocytesOrdered By: Anamika Chowdhury on 01-19-2025 Lymphocytes/100 WBC Auto (Unsp spec) 33.2 % 19-41 [facility] BUN/creatinine ratioOrdered By: [facility] on 01-19-2025 Urea nitrogen/Creatinine [Mass ratio] 18.7 mg/mg 10-20 [facility] Basophil percentageOrdered B y: Anamika Chowdhury on 01-19-2025 Basophils/100 WBC (Bld) 0.6 % 0-[address] [facility] Bilirubin, totalOrdered By: Anamika Chowdhury on 01-19-2025 Bilirubin [Mass/Vol] 0.37 mg/dL 0.00-1.30 [facility] CBC W/Diff, Automatedon Absolute Lymph 2.20 X10 3/uL Normal 0.83-4.51 [facility] Comment on above: Performed By: #### L 100.0100, L500.4050, L500.4100, [id number] #### [facility] [address] [place], [address] Absolute Neut 3.5 X10 3/uL Normal 2.0-7.7 [facility] Comment on above: Performed By: #### L 100.0100, L500.4050, L500.4100, [id number] #### [facility] [address] [place], [address] Basophils/100 WBC (Bld) 0.6 % Normal 0-[address] [facility] Comment on above: Performed By: #### L 100.0100, L500.4050, L500.4100, [id number] #### [facility] [address] [place], [address] Eosinophils/100 WBC (Bld) 3.6 % Normal 0-5 [facility] Comment on above: Performed By: #### L 100.0100, L500.4050, L500.4100, [id number] #### [facility] [address] [place], [address] Erythrocyte distribution width (RBC) [Ratio] 12.3 % Normal 11.6-14.6 [facility] Comment on above: Performed By: #### L 100.0100, L500.4050, L500.4100, [id number] #### [facility] [address] [place], [address] Hematocrit (Bld) [Volume fraction] 42.8 % Normal 37-47 [facility] Comment on above: Performed By: #### L 100.0100, L500.4050, L500.4100, [id number] #### [facility] [address] [place], [address] Hemoglobin (Bld) [Mass/Vol] 14.5 g/dL Normal 12.0-15.0 [facility] Comment on above: Performed By: #### L 100.0100, L500.4050, L500.4100, [id number] #### [facility] [address] [place], [address] IG% 0.500 Normal 0.0-0.9 [facility] Comment on above: Result Comment: IG% - Immature Granulocytes (promyelocytes, myelocytes and metamyelocytes) > 1% indicates that a LEFT SHIFT is Present. Performed By: #### L 100.0100, L500.4050, L500.4100, [id number] #### [facility] [address] [place], [address] Lymphocytes/100 WBC (Bld) 33.2 % Normal 19-41 [facility] Comment on above: Performed By: #### L 100.0100, L500.4050, L500.4100, [id number] #### [facility] [address] [place], [address] MCH (RBC) [Entitic mass] 31.4 pg Normal 27.0-32.0 [facility] Comment on above: Performed By: #### L 100.0100, L500.4050, L500.4100, [id number] #### [facility] [address] [place], [address] MCHC (RBC) [Mass/Vol] 33.9 g/dL Normal 32-36 [facility] Comment on above: Performed By: #### L 100.0100, L500.4050, L500.4100, [id number] #### [facility] [address] [place], [address] MCV (RBC) [Entitic vol] 92.6 fL Normal 81-[address] [facility] Comment on above: Performed By: #### L 100.0100, L500.4050, L500.4100, [id number] #### [facility] [address] [place], [address] Monocytes/100 WBC (Bld) 9.2 % Normal 0-[address] [facility] Comment on above: Performed By: #### L 100.0100, L500.4050, L500.4100, [id number] #### [facility] [address] [place], [address] Neutrophils/100 WBC (Bld) 52.9 % Normal 47-70 [facility] Comment on above: Performed By: #### L 100.0100, L500.4050, L500.4100, [id number] #### [facility] [address] [place], [address] Nucleated RBC (Bld) [#/Vol] 0 10*3/uL Normal 0-5 [facility] Comment on above: Performed By: #### L 100.0100, L500.4050, L500.4100, [id number] #### [facility] [address] [place], [address] Platelet mean volume (Bld) [Entitic vol] 10.0 fL Normal 6.2-12.0 [facility] Comment on above: Performed By: #### L 100.0100, L500.4050, L500.4100, [id number] #### [facility] [address] [place], [address] Platelets (Bld) [#/Vol] 225 10*3/uL Normal 150-450 [facility] Comment on above: Performed By: #### L 100.0100, L500.4050, L500.4100, [id number] #### [facility] [address] [place], [address] RBC (Bld) [#/Vol] 4.62 10*6/uL Normal 4.2-5.4 [facility] Comment on above: Performed By: #### L 100.0100, L500.4050, L500.4100, [id number] #### [facility] [address] [place], [address] RDW SD 42.0 fl Normal 35.1-43.9 [facility] Comment on above: Performed By: #### L 100.0100, L500.4050, L500.4100, [id number] #### [facility] [address] [place], [address] WBC (Bld) [#/Vol] 6.6 10*3/uL Normal 4.4-11.0 [facility] Comment on above: Performed By: #### L 100.0100, L500.4050, L500.4100, [id number] #### [facility] [address] [place], [address] Calculated very low density lipoprotein (VLDL) cholesterol measurementOrdered By: Anamika Chowdhury on 01-19-2025 Calculated very low density lipoprotein (VLDL) cholesterol measurement 45 mg/dL High 5-40 [facility] Carbon dioxide, total [Moles /volume] in Central venous bloodOrdered By: Anamika Chowdhury on 01-19-2025 CO2 [Moles/Vol] 25.9 mmol/L 21.0-32.0 [facility] Chloride assayOrdered By: Manny Chowdhury on 01-19-2025 Chloride [Moles/Vol] 103 mmol/L 98-108 [facility] Prof ilon 01-19-2025 Albumin [Mass/Vol] 4.1 g/dL Normal 3.4-4.8 [facility] Comment on above: Performed By: #### L 100.0100, L500.4050, L500.4100, [id number] #### [facility] [address] [place], [address] Albumin/Globulin [Mass ratio] 1.3 {ratio} Normal 0.9-2.4 [facility] Comment on above: Performed By: #### L 100.0100, L500.4050, L500.4100, [id number] #### [facility] [address] [place], [address] ALK PHOS 69 U/L Normal 35-104 [facility] Comment on above: Performed By: #### L 100.0100, L500.4050, L500.4100, [id number] #### [facility] [address] [place], [address] ALT [Catalytic activity/Vol] 31 U/L Normal <=34 [facility] Comment on above: Performed By: #### L 100.0100, L500.4050, L500.4100, [id number] #### [facility] [address] [place], [address] AST [Catalytic activity/Vol] 24 U/L Normal <=31 [facility] Comment on above: Performed By: #### L 100.0100, L500.4050, L500.4100, [id number] #### [facility] [address] [place], [address] Bilirubin [Mass/Vol] 0.37 mg/dL Normal 0.00-1.30 [facility] Comment on above: Performed By: #### L 100.0100, L500.4050, L500.4100, [id number] #### [facility] [address] [place], [address] BUN/CRE 18.7 RATIO Normal 10-20 [facility] Comment on above: Performed By: #### L 100.0100, L500.4050, L500.4100, [id number] #### [facility] [address] [place], [address] Calcium [Mass/Vol] 9.7 mg/dL Normal 7.6-11.0 [facility] Comment on above: Performed By: #### L 100.0100, L500.4050, L500.4100, [id number] #### [facility] [address] [place], [address] Chloride [Moles/Vol] 103 mmol/L Normal 98-108 [facility] Comment on above: Performed By: #### L 100.0100, L500.4050, L500.4100, [id number] #### [facility] [address] [place], [address] CO2 [Moles/Vol] 25.9 mmol/L Normal 21.0-32.0 [facility] Comment on above: Performed By: #### L 100.0100, L500.4050, L500.4100, [id number] #### [facility] [address] [place], [address] Creatinine [Mass/Vol] 0.90 mg/dL Normal 0.70-1.20 [facility] Comment on above: Performed By: #### L 100.0100, L500.4050, L500.4100, [id number] #### [facility] [address] [place], [address] GAP 11 Normal 5-15 [facility] Comment on above: Performed By: #### L 100.0100, L500.4050, L500.4100, [id number] #### [facility] [address] [place], [address] GFR/1.73 sq M.predicted among non-blacks MDRD (S/P/Bld) [Vol rate/Area] 68 mL/min/{1.73_m2} Normal >60 [facility] Comment on above: Result Comment: mL/m in/1.73m2 CKD-EPI Creatinine Equation (2020) Performed By: #### L 100.0100, L500.4050, L500.4100, [id number] #### [facility] [address] [place], [address] Globulin (S) [Mass/Vol] 3.1 g/dL Normal 2.2-4.2 [facility] Comment on above: Performed By: #### L 100.0100, L500.4050, L500.4100, [id number] #### [facility] [address] [place], [address] Glucose [Mass/Vol] 107 mg/dL High 70-99 [facility] Comment on above: Performed By: #### L 100.0100, L500.4050, L500.4100, [id number] #### [facility] [address] [place], [address] Potassium [Moles/Vol] 4.6 mmol/L Normal 3.3-5.1 [facility] Comment on above: Performed By: #### L 100.0100, L500.4050, L500.4100, [id number] #### [facility] [address] [place], [address] Sodium [Moles/Vol] 140 mmol/L Normal 133-145 [facility] Comment on above: Performed By: #### L 100.0100, L500.4050, L500.4100, [id number] #### [facility] [address] [place], [address] T PROT 7.2 g/dL Normal 5.9-8.4 [facility] Comment on above: Performed By: #### L 100.0100, L500.4050, L500.4100, [id number] #### [facility] [address] [place], [address] Urea nitrogen [Mass/Vol] 17 mg/dL Normal 4-19 [facility] Comment on above: Performed By: #### L 100.0100, L500.4050, L500.4100, [id number] #### [facility] [address] [place], [address] Eosinophil percentageOrdered By: Anamika Chowdhury on 01-19-2025 Eosinophils/100 WBC (Bld) 3.6 % 0-5 [facility] Erythrocyte distribution wid th ratioOrdered By: [facility] on 01-19-2025 Erythrocyte distribution width (RBC) [Ratio] 12.3 % 11.6-14.6 [facility] Erythrocyte distribution wid th standard deviationOrdered By: [facility] [place] on 01-19-2025 Erythrocyte distribution width (RBC) [Ratio] 42.0 fl 35.1-43.9 [facility] Glomerular filtration rate ( GFR) estimation/1.73 sq m using serum, plasma, or whole bOrdered By: Anamikarochelle Chowdhury on 01-19-2025 GFR/1.73 sq M.predicted among non-blacks MDRD (S/P/Bld) [Vol rate/Area] 68 mL/min/{1.73_m2} >60 [facility] Comment on above: mL/min/1.73m2 CKD-EP I Creatinine Equation (2020) Hematocrit Auto (Bld) [Volum e fraction]Ordered By: Anamika Chowdhury on 01-19-2025 Hematocrit (Bld) [Volume fraction] 42.8 % 37-47 [facility] Hemoglobin A1con 01-19-2025 HbA1c (Bld) [Mass fraction] 6.1 % High <=5.6 [facility] Comment on above: Result Comment: Norm al < 5.7 % Prediabetic 5.7 - 6.4 % Diabetic >or= 6.5 % Please note range changes. Performed By: #### L 100.0100, L500.4050, L500.4100, [id number] #### [facility] [address] [place], [address] Hemoglobin A1c percentageOrd ered By: Anamika Chowdhury on 01-19-2025 HbA1c (Bld) [Mass fraction] 6.1 % High <5.7 [facility] Comment on above: Normal < 5.7 % Predi abetic 5.7 - 6.4 % Diabetic >or= 6.5 % Please note range changes. Hemoglobin measurementOrdere d By: Anamika Chowdhury on 01-19-2025 Hemoglobin (Bld) [Mass/Vol] 14.5 g/dL 12.0-15.0 [facility] Immature granulocytes/100 WB C Auto (Bld)Ordered By: Anamika Chowdhury on 01-19-2025 Immature granulocytes/100 WBC (Bld) 0.500 % 0.0-0.9 [facility] Comment on above: IG% - Immature Granu locytes (promyelocytes, myelocytes and metamyelocytes) > 1% indicates that a LEFT SHIFT is Present. LDL calc ser/plasOrdered By: Anamika Chowdhury on 01-19-2025 Cholesterol in LDL [Mass/Vol] 64 mg/dL [facility] Comment on above: Mnqqdpzhpc=487-738 m g/dL & Higher Efkp=120 mg/dL or greaterFriedwald Equation for LDL-C Laboratory - Chemistry and C hemistry - challengeOrdered By: Anamika Chowdhury on 01-19-2025 AST [Catalytic activity/Vol] 24 U/L <32 [facility] Lipid Profileon 01-19-2025 CHOL:HDL 3.36 Normal [facility] Comment on above: Performed By: #### L 100.0100, L500.4050, L500.4100, [id number] #### [facility] [address] [place], [address] Cholesterol [Mass/Vol] 155 mg/dL Normal <=200 [facility] Comment on above: Result Comment: Chol esterol level, Desirable <200 mg/dL Borderline high cholesterol 200-239 mg/dL High cholesterol >=240 mg/dL Recommendations of the NCEP Adult Treatment Panel for the following risk-cutoff thresholds for the [place] population. Performed By: #### L 100.0100, L500.4050, L500.4100, [id number] #### [facility] [address] [place], [address] Cholesterol in HDL [Mass/Vol] 46 mg/dL Normal [facility] Comment on above: Result Comment: Astrid onal Cholesterol Education Program (NCEP) guidelines: <40 mg/dL: Low HDL-cholesterol (major risk factor for CHD) >= 60 mg/dL: High HDL-cholesterol (negative risk factor for CHD) HDL-cholesterol is affected by a number of factors, e.g. smoking, exercise, hormones, sex and age. Performed By: #### L 100.0100, L500.4050, L500.4100, [id number] #### [facility] [address] [place], [address] Cholesterol in LDL [Mass/Vol] 64 mg/dL Normal [facility] Comment on above: Result Comment: Bord tkjukr=468-317 mg/dL Higher Ujfb=044 mg/dL or greater Friedwald Equation for LDL-C Performed By: #### L 100.0100, L500.4050, L500.4100, L501.9985 #### [facility] [address] [place], [address] Cholesterol in VLDL [Mass/Vol] 45 mg/dL High 5-40 [facility] Comment on above: Performed By: #### L 100.0100, L500.4050, L500.4100, L501.9985 #### [facility] [address] [place], [address] Triglyceride [Mass/Vol] 227 mg/dL High [facility] Comment on above: Result Comment: The drugs N-Acetylcysteine and Metamizole may falsely depress this assay. Normal range: <150 mg/dL Borderline High: 150-199 mg/dL High: 200-499 mg/dL Very High: >500 mg/dL Performed By: #### L 100.0100, L500.4050, L500.4100, L501.9985 #### [facility] [place], [address] MCV (mean corpuscular volume ) determinationOrdered By: Anamika Chowdhury on 01-19-2025 MCV (RBC) [Entitic vol] 92.6 fL 81-[address] [facility] Mean corpuscular hemoglobin (MCH) determinationOrdered By: Anamika Chowdhury on 01-19-2025 MCH (RBC) [Entitic mass] 31.4 pg 27.0-32.0 [facility] Mean corpuscular hemoglobin concentration (MCHC) determinationOrdered By: Anamika Chowdhury on 01-19-2025 MCHC (RBC) [Mass/Vol] 33.9 g/dL 32-36 [facility] Mean platelet volume determi nationOrdered By: Anamika Chowdhury on 01-19-2025 Platelet mean volume (Bld) [Entitic vol] 10.0 fL 6.2-12.0 [facility] Monocyte percentageOrdered B y: Anamika Chowdhury on 01-19-2025 Monocytes/100 WBC (Bld) 9.2 % 0-[address] [facility] Neutrophil percentageOrdered By: Anamika Chowdhury on 01-19-2025 Neutrophils/100 WBC (Bld) 52.9 % 47-70 [facility] Nucleated red blood cell per centageOrdered By: Anamika Chowdhury on 01-19-2025 Nucleated RBC/100 WBC (Bld) [Ratio] 0 % 0-5 [facility] Platelet countOrdered By: Manny Chowdhury on 01-19-2025 Platelets (Bld) [#/Vol] 225 10*3/uL 150-450 [facility] Potassium measurement (mass/ volume)Ordered By: Anamika Chowdhury on 01-19-2025 Potassium (Unsp spec) [Mass/Vol] 4.6 mmol/L 3.3-5.1 [facility] RBC Auto (Bld) [#/Vol]Ordere d By: Anamika Chowdhury on 01-19-2025 RBC (Bld) [#/Vol] 4.62 10*6/uL 4.2-5.4 [facility] Screening total cholesterol/ high density lipoprotein (HDL) cholesterol ratioOrdered By: Anamika Chowdhury on 01-19-2025 Cholesterol.total/Choles terol in HDL [Mass ratio] 3.36 {ratio} [facility] Serum creatinine measurement (mass/volume)Ordered By: Anamika Chowdhury on 01-19-2025 Creatinine [Mass/Vol] 0.90 mg/dL 0.70-1.20 [facility] Serum globulin measurementOr dered By: Anamika Chowdhury on 01-19-2025 Globulin (S) [Mass/Vol] 3.1 g/dL 2.2-4.[address] [facility] Serum glucose measurement (m ass/volume)Ordered By: Anamika Chowdhury on 01-19-2025 Glucose [Mass/Vol] 107 mg/dL High 70-99 [facility] Serum or plasma alanine roque otransferase (ALT) measurementOrdered By: Anamika Chowdhury on 01-19-2025 ALT [Catalytic activity/Vol] 31 U/L <35 [facility] Serum or plasma albumin johanne urement (mass/volume)Ordered By: Anamika Chowdhury on 01-19-2025 Albumin [Mass/Vol] 4.1 g/dL 3.4-4.8 [facility] Serum or plasma albumin/glob ulin mass ratioOrdered By: Anamika Chowdhury on 01-19-2025 Albumin/Globulin [Mass ratio] 1.3 {ratio} 0.9-2.4 [facility] Serum or plasma alkaline noel sphatase measurementOrdered By: Anamika Chowdhury on 01-19-2025 ALP [Catalytic activity/Vol] 69 U/L 35-104 [facility] Serum or plasma calcium johanne urement (mass/volume)Ordered By: Anamika Chowdhury on 01-19-2025 Calcium [Mass/Vol] 9.7 mg/dL 7.6-11.0 [facility] Serum or plasma cholesterol in HDL measurement (mass/volume)Ordered By: Anamika Chowdhury on 01-19-2025 Cholesterol in HDL [Mass/Vol] 46 mg/dL >40 [facility] Comment on above: National Cholesterol Education Program (NCEP) guidelines:<40 mg/dL: Low HDL-cholesterol (major risk factor for CHD)>= 60 mg/dL: High HDL-cholesterol (negative risk factor for CHD)HDL-cholesterol is affected by a number of factors, e.g. smoking, exercise, hormones, sex and age. Serum or plasma cholesterol measurement (mass/volume)Ordered By: Anamika Chowdhury on 01-19-2025 Cholesterol [Mass/Vol] 155 mg/dL <201 [facility] Comment on above: Cholesterol level, D esirable <200 mg/dLBorderline high cholesterol 200-239 mg/dLHigh cholesterol >=240 mg/dLRecommendations of the NCEP Adult Treatment Panel for the following risk-cutoff thresholds for the [place] population. Serum or plasma urea nitroge n measurement (mass/volume)Ordered By: Anamika Chowdhury on 01-19-2025 Urea nitrogen [Mass/Vol] 17 mg/dL 4-19 [facility] Sodium levelOrdered By: Ebony Chowdhury on 01-19-2025 Sodium [Moles/Vol] 140 mmol/L 133-145 [facility] Total proteinOrdered By: Akhil Chowdhury on 01-19-2025 Protein [Mass/Vol] 7.2 g/dL 5.9-8.4 [facility] Triglycerides measurementOrd ered By: Anamika Chowdhury on 01-19-2025 Triglyceride [Mass/Vol] 227 mg/dL High <[address] [facility] Comment on above: The drugs N-Acetylcy steine and Metamizole may falsely depress this assay. Normal range: <150 mg/dLBorderline High: 150-199 mg/dLHigh: 200-499 mg/dLVery High: >500 mg/dL White blood cell (WBC) count Ordered By: Anamika Chowdhury on 01-19-2025 WBC (Bld) [#/Vol] 6.6 10*3/uL 4.4-11.0 [facility] Breast imaging reportOrdered By: Gadiel Garduno on 10-25-2024 Study report [facility] Imaging Services [address], [place] [id number] SCRN MAMM (CAD)W/JIMENA BILAT MR#: [id number] Acct: [id number] Name: CASSY GOMEZ Rep #: [id number] : 1955 F 69 From: Antonio Garduno MD PCP: Dr. Anamika Chowdhury MD Status: [facility] Study:SCRN MAMM (CAD)W/JIMENA BILAT Date of Exa m: 10/24/24 Exam# [id number] Ordering Dr: Erica Chowdhury MD EXAM: SCRN MAMM (CAD)W/JIMENA BILAT DATE: 10/24/2024 CLINICAL HISTORY: F, Age 69 y/o , SCREEN No family history. BREAST CANCER RISK ASSESSMENT: Not assessed. TECHNIQUE: Bilateral screening digital breast tomosynthesis with 2D and 3D images. Computeraided detection. COMPARISON: Prior exam(s) dated October 21, 2023.. FINDINGS: TISSUE DENSITY: The breast tissue is almost entirely fatty. Bilateral Breast Mammographic Findings: No significant masses, calcifications or other abnormalities are identified. A pacemaker battery pack is seen in the left axilla. No suspicious masses, areas of developing architectural distortion, or suspicious calcifications. There has been no significant interval change. BI/SCRN MAMM (CAD)W/JIMENA BILAT IMPRESSION: OVERALL FINAL ASSESSMENT: BIRADS 1 NEGATIVE RECOMMENDATION: Routine annual follow-up in 1 Year A letter with findings and recommendations will be mailed to the patient. Reading Location: [facility]1 CC: Dr. Anamika Chowdhury MD ~ Analytic Manager: Signed [facility] SCRN MAMM (CAD)W/JIMENA BILATo n 10-24-2024 SCRN MAMM (CAD)W/JIMENA BILAT [facility] Imaging Services [address] [place] [id number] SCRN MAMM (CAD)W/JIMENA BILAT MR#: [id number] Acct: [id number] Name: WAYNECASSY Rep #: [id number] : 1955 F 69 From: Gadiel castro MD PCP: Dr. Anamika Chowdhury MD Status: REG CLI Study: SCRN MAMM (CAD)W/JIMENA BILAT Date of Exam: 10/15 Exam# [id number] Ordering Dr: Anamika Chowdhury MD EXAM: SCRN MAMM (CAD)W/JIMENA BILAT DATE: 10/24/2024 CLINICAL HISTORY: F, Age 69 y/o , SCREEN No family history. BREAST CANCER RISK ASSESSMENT: Not assessed. TECHNIQUE: Bilateral screening digital breast tomosynthesis with 2D and 3D images. Computer aided detection. COMPARISON: Prior exam(s) dated October 21, 2023.. FINDINGS: TISSUE DENSITY: The breast tissue is almost entirely fatty. Bilateral Breast Mammographic Findings: No significant masses, calcifications or other abnormalities are identified. A pacemaker battery pack is seen in the left axilla. No suspicious masses, areas of developing architectural distortion, or suspicious calcifications. There has been no significant interval change. BI/SCRN MAMM (CAD)W/JIMENA BILAT IMPRESSION: OVERALL FINAL ASSESSMENT: BIRADS 1 NEGATIVE RECOMMENDATION: Routine annual follow-up in 1 Year A letter with findings and recommendations will be mailed to the patient. Reading Location: [place] [address] CC: Dr. Anamika Chowdhury MD Analytic Manager: Signed Normal [facility] CBC W/Diff, Automatedon 09-2 Absolute Lymph 2.30 X10 3/uL Normal 0.83-4.51 [facility] Comment on above: Performed By: #### L 501.9985, L500.4050, L500.4100, L100.0100 #### [facility] [address] [place], [place], [id number] Absolute Neut 3.7 X10 3/uL Normal 2.0-7.7 [facility] Comment on above: Performed By: #### L 501.9985, L500.4050, L500.4100, L100.0100 #### [facility] [address] [place], [address] Basophils/100 WBC (Bld) 0.7 % Normal 0-[address] [facility] Comment on above: Performed By: #### L 501.9985, L500.4050, L500.4100, L100.0100 #### [facility] [address] [place], [address] Eosinophils/100 WBC (Bld) 3.0 % Normal 0-5 [facility] Comment on above: Performed By: #### L 501.9985, L500.4050, L500.4100, L100.0100 #### [facility] [address] [place], [address] Erythrocyte distribution width (RBC) [Ratio] 12.2 % Normal 11.6-14.6 [facility] Comment on above: Performed By: #### L 501.9985, L500.4050, L500.4100, L100.0100 #### [facility] [address] [place], [address] Hematocrit (Bld) [Volume fraction] 44.7 % Normal 37-47 [facility] Comment on above: Performed By: #### L 501.9985, L500.4050, L500.4100, L100.0100 #### [facility] [address] [place], [address] Hemoglobin (Bld) [Mass/Vol] 14.7 g/dL Normal 12.0-15.0 [facility] Comment on above: Performed By: #### L 501.9985, L500.4050, L500.4100, L100.0100 #### [facility] [address] [place], [address] IG% 0.300 Normal 0.0-0.9 [facility] Comment on above: Result Comment: IG% - Immature Granulocytes (promyelocytes, myelocytes and metamyelocytes) > 1% indicates that a LEFT SHIFT is Present. Performed By: #### L 501.9985, L500.4050, L500.4100, L100.0100 #### [facility] [address] [place], [address] Lymphocytes/100 WBC (Bld) 33.0 % Normal 19-41 [facility] Comment on above: Performed By: #### L 501.9985, L500.4050, L500.4100, L100.0100 #### [facility] [address] [place], [address] MCH (RBC) [Entitic mass] 30.5 pg Normal 27.0-32.0 [facility] Comment on above: Performed By: #### L 501.9985, L500.4050, L500.4100, L100.0100 #### [facility] [address] [place], [address] MCHC (RBC) [Mass/Vol] 32.9 g/dL Normal 32-36 [facility] Comment on above: Performed By: #### L 501.9985, L500.4050, L500.4100, L100.0100 #### [facility] [address] [place], [address] MCV (RBC) [Entitic vol] 92.7 fL Normal 81-[address] [facility] Comment on above: Performed By: #### L 501.9985, L500.4050, L500.4100, L100.0100 #### [facility] [address] [place], [address] Monocytes/100 WBC (Bld) 10.0 % Normal 0-[address] [facility] Comment on above: Performed By: #### L 501.9985, L500.4050, L500.4100, L100.0100 #### [facility] [address] [place], [address] Neutrophils/100 WBC (Bld) 53.0 % Normal 47-70 [facility] Comment on above: Performed By: #### L 501.9985, L500.4050, L500.4100, L100.0100 #### [facility] [address] [place], [address] Nucleated RBC (Bld) [#/Vol] 0 10*3/uL Normal 0-5 [facility] Comment on above: Performed By: #### L 501.9985, L500.4050, L500.4100, L100.0100 #### [facility] [address] [place], [address] Platelet mean volume (Bld) [Entitic vol] 9.6 fL Normal 6.2-12.0 [facility] Comment on above: Performed By: #### L 501.9985, L500.4050, L500.4100, L100.0100 #### [facility] [address] [place], [address] Platelets (Bld) [#/Vol] 225 10*3/uL Normal 150-450 [facility] Comment on above: Performed By: #### L 501.9985, L500.4050, L500.4100, L100.0100 #### [facility] [address] [place], [address] RBC (Bld) [#/Vol] 4.82 10*6/uL Normal 4.2-5.4 [facility] Comment on above: Performed By: #### L 501.9985, L500.4050, L500.4100, L100.0100 #### [facility] [address] [place], [address] RDW SD 41.6 fl Normal 35.1-43.9 [facility] Comment on above: Performed By: #### L 501.9985, L500.4050, L500.4100, L100.0100 #### [facility] [address] [place], [address] WBC (Bld) [#/Vol] 7.0 10*3/uL Normal 4.4-11.0 [facility] Comment on above: Performed By: #### L 501.9985, L500.4050, L500.4100, L100.0100 #### [facility] [address] [place], [address] Comprehensive Metabolic Prof ilon 02-04-2024 Albumin [Mass/Vol] 3.8 g/dL Normal 3.2-5.0 [facility] Comment on above: Performed By: #### L 501.9985, L500.4050, L500.4100, L100.0100 #### [facility] [address] [place], [address] Albumin/Globulin [Mass ratio] 1.1 {ratio} Normal 0.9-2.4 [facility] Comment on above: Performed By: #### L 501.9985, L500.4050, L500.4100, L100.0100 #### [facility] [address] [place], [address] ALK P 79 U/L Normal 45-117 [facility] Comment on above: Performed By: #### L 501.9985, L500.4050, L500.4100, L100.0100 #### [facility] [address] [place], [address] ALT [Catalytic activity/Vol] 38 U/L Normal 13-56 [facility] Comment on above: Performed By: #### L 501.9985, L500.4050, L500.4100, L100.0100 #### [facility] [address] [place], [address] AST [Catalytic activity/Vol] 20 U/L Normal 15-37 [facility] Comment on above: Performed By: #### L 501.9985, L500.4050, L500.4100, L100.0100 #### [facility] [address] [place], [address] Bilirubin [Mass/Vol] 0.60 mg/dL Normal 0.20-1.00 [facility] Comment on above: Result Comment: For patients on eltrombopag therapy, use of Dimension [place] TBIL is not recommended. Performed By: #### L 501.9985, L500.4050, L500.4100, L100.0100 #### [facility] [address] [place], [address] BUN/CRE 19.8 RATIO Normal 10-20 [facility] Comment on above: Performed By: #### L 501.9985, L500.4050, L500.4100, L100.0100 #### [facility] [address] [place], [address] CA,Total 9.4 mg/dL Normal 8.5-10.1 [facility] Comment on above: Performed By: #### L 501.9985, L500.4050, L500.4100, L100.0100 #### [facility] [address] [place], [address] Chloride [Moles/Vol] 104 mmol/L Normal 98-107 [facility] Comment on above: Performed By: #### L 501.9985, L500.4050, L500.4100, L100.0100 #### [facility] [address] [place], [address] CO2 [Moles/Vol] 28.0 mmol/L Normal 21.0-32.0 [facility] Comment on above: Performed By: #### L 501.9985, L500.4050, L500.4100, L100.0100 #### [facility] [address] [place], [address] Creatinine [Mass/Vol] 0.96 mg/dL Normal 0.55-1.02 [facility] Comment on above: Result Comment: The validity of the calculated GFR GFRAA in patients over 70 years has not been determined. Clinical correlation is essential. Performed By: #### L 501.9985, L500.4050, L500.4100, L100.0100 #### [facility] [address] [place], [address] EST GFR - AA 74 mL/min Normal >60 [facility] Comment on above: Result Comment: Afri can [place] GFR Calc Performed By: #### L 501.9985, L500.4050, L500.4100, L100.0100 #### [facility] [address] [place], [address] GAP 7 Normal 5-15 [facility] Comment on above: Performed By: #### L 501.9985, L500.4050, L500.4100, L100.0100 #### [facility] [address] [place], [address] GFR/1.73 sq M.predicted among non-blacks MDRD (S/P/Bld) [Vol rate/Area] 61 mL/min/{1.73_m2} Normal >60 [facility] Comment on above: Result Comment: Non- GFR Calc Performed By: #### L 501.9985, L500.4050, L500.4100, L100.0100 #### [facility] [address] [place], [address] Globulin (S) [Mass/Vol] 3.6 g/dL Normal 2.2-4.2 [facility] Comment on above: Performed By: #### L 501.9985, L500.4050, L500.4100, L100.0100 #### [facility] [address] [place], [address] Glucose [Mass/Vol] 111 mg/dL High 74-106 [facility] Comment on above: Result Comment: Fast ing Glucose result from 100 to 125 mg/dL suggests IMPAIRED HOMEOSTASIS per A.D.A. criteria. Performed By: #### L 501.9985, L500.4050, L500.4100, L100.0100 #### [facility] [address] [place], [address] Potassium [Moles/Vol] 4.0 mmol/L Normal 3.5-5.1 [facility] Comment on above: Performed By: #### L 501.9985, L500.4050, L500.4100, L100.0100 #### [facility] [address] [place], [address] Sodium [Moles/Vol] 139 mmol/L Normal 136-145 [facility] Comment on above: Performed By: #### L 501.9985, L500.4050, L500.4100, L100.0100 #### [facility] [address] [place], [address] T PROT 7.4 g/dL Normal 6.4-8.2 [facility] Comment on above: Performed By: #### L 501.9985, L500.4050, L500.4100, L100.0100 #### [facility] [address] [place], [address] Urea nitrogen [Mass/Vol] 19 mg/dL High 7-18 [facility] Comment on above: Performed By: #### L 501.9985, L500.4050, L500.4100, L100.0100 #### [facility] [address] [place], [address] Hemoglobin A1con 02-04-2024 HbA1c (Bld) [Mass fraction] 5.8 % High 3.8-5.6 [facility] Comment on above: Result Comment: Norm al < 5.7 % Prediabetic 5.7 - 6.4 % Diabetic >or= 6.5 % Please note range changes. Performed By: #### L 501.9985, L500.4050, L500.4100, L100.0100 #### [facility] [address] [place], [address] Lipid Profileon 02-04-2024 Cholesterol [Mass/Vol] 151 mg/dL Normal 200 [facility] Comment on above: Result Comment: <200 mg/dL Desirable 200-240 mg/dL Borderline >240 mg/dL High Risk Performed By: #### L 501.9985, L500.4050, L500.4100, L100.0100 #### [facility] [address] [place], [address] Cholesterol in HDL [Mass/Vol] 55 mg/dL Normal [facility] Comment on above: Result Comment: The drugs N-Acetylcysteine and Metamizole may falsely depress this assay. Reference Range HDL <40 mg/dL Low HDL Cholesterol HDL >or= 60 mg/dL High HDL Cholesterol Performed By: #### L 501.9985, L500.4050, L500.4100, L100.0100 #### [facility] [address] [place], [address] Cholesterol in LDL [Mass/Vol] 62 mg/dL Normal 0-130 [facility] Comment on above: Performed By: #### L 501.9985, L500.4050, L500.4100, L100.0100 #### [facility] [address] [place], [address] Cholesterol in VLDL [Mass/Vol] 34 mg/dL Normal 5-40 [facility] Comment on above: Performed By: #### L 501.9985, L500.4050, L500.4100, L100.0100 #### [facility] [address] [place], [address] Triglyceride [Mass/Vol] 169 mg/dL Normal [facility] Comment on above: Result Comment: The drugs N-Acetylcysteine and Metamizole may falsely depress this assay. Serum Triglycerides Reference Interval Normal <150 mg/dL Borderline high 150 - 199 mg/dL High 200 - 499 mg/dL Very High > or = 500 mg/dL Performed By: #### L 501.9985, L500.4050, L500.4100, L100.0100 #### [facility] [address] [place], [place], [id number] Absolute lymphocyte countOrd ered By: Anamika Chowdhury on 01-19-2023 Lymphocytes Auto (Unsp spec) [#/Vol] 2.08 10*3/uL 0.83-4.51 [facility] Basophil percentageOrdered B y: Anamika Chowdhury on 01-19-2023 Basophils/100 WBC (Bld) 0.5 % 0-1 [facility] Bilirubin [Mass/Vol] 0.40 mg/dL 0.20-1.00 [facility] Comment on above: For patients on eltr ombopag therapy, use of Dimension [place] TBIL is not recommended. Chloride [Moles/Vol] 106 mmol/L 98-107 [facility] Cholesterol [Mass/Vol] 159 mg/dL <200 [facility] Comment on above: <200 mg/dL Desirable 200-240 mg/dL Borderline >240 mg/dL High Risk Eosinophils/100 WBC (Bld) 3.7 % 0-5 [facility] Glucose [Mass/Vol] 103 mg/dL 74-106 [facility] Comment on above: Fasting Glucose resu lt from 100 to 125 mg/dL suggests IMPAIRED HOMEOSTASIS per A.D.A. criteria. Neutrophils (Bld) [#/Vol] 3.3 10*3/uL 2.0-7.7 [facility] Neutrophils/100 WBC (Bld) 53.3 % 47-70 [facility] Potassium [Moles/Vol] 4.2 mmol/L 3.5-5.1 [facility] Protein [Mass/Vol] 7.5 g/dL 6.4-8.2 [facility] Sodium [Moles/Vol] 139 mmol/L 136-145 [facility] Triglyceride [Mass/Vol] 165 mg/dL <[address] [facility] Comment on above: The drugs N-Acetylcy steine and Metamizole may falsely depress this assay.Serum Triglycerides Reference Interval Normal <150 mg/dL Borderline high 150 - 199 mg/dL High 200 - 499 mg/dL Very High > or = 500 mg/dL WBC (Bld) [#/Vol] 6.2 10*3/uL 4.4-11.0 [facility] Blood erythrocytes count (nu mber/volume)Ordered By: Anamika Chowdhury on 01-19-2023 RBC (Bld) [#/Vol] 4.66 10*6/uL 4.2-5.4 [facility] Blood hemoglobin measurement (mass/volume)Ordered By: Anamika Chowdhury on 01-19-2023 Hemoglobin (Bld) [Mass/Vol] 14.5 g/dL 12.0-15.0 [facility] Blood lymphocytes/100 leukoc ytesOrdered By: Anamika Chowdhury on 01-19-2023 Lymphocytes/100 WBC (Bld) 33.5 % 19-41 [facility] Blood monocytes/100 leukocyt esOrdered By: Anamika Chowdhury on 01-19-2023 Monocytes/100 WBC (Bld) 8.7 % 0-[address] [facility] Blood platelet mean volumeOr dered By: Anamika Chowdhury on 01-19-2023 Platelet mean volume (Bld) [Entitic vol] 9.7 fL 6.2-12.0 [facility] Determination of erythrocyte mean corpuscular volume (MCV)Ordered By: Anamika Chowdhury on 01-19-2023 MCV (RBC) [Entitic vol] 95.5 fL 81-99 [facility] Hematocrit Auto (Bld) [Volum e fraction]Ordered By: Anamika Chowdhury on 01-19-2023 Hematocrit (Bld) [Volume fraction] 44.5 % 37-47 [facility] Laboratory - Chemistry and C hemistry - challengeOrdered By: Anamika Chowdhury on 01-19-2023 ALP [Catalytic activity/Vol] 76 U/L 45-117 [facility] ALT [Catalytic activity/Vol] 39 U/L 13-56 [facility] CO2 [Moles/Vol] 29.0 mmol/L 21.0-32.0 [facility] Globulin (S) [Mass/Vol] 3.9 g/dL 2.2-4.[address] [facility] Urea nitrogen/Creatinine [Mass ratio] 21.8 mg/mg 10-20 [facility] Laboratory - Hematology and Cell countsOrdered By: Anamika Chowdhury on 01-19-2023 Erythrocyte distribution width (RBC) [Entitic vol] 42.1 fL 35.1-43.9 [facility] Erythrocyte distribution width (RBC) [Ratio] 12.1 % 11.6-14.6 [facility] Immature granulocytes/100 WBC (Bld) 0.300 % 0.0-0.9 [facility] Comment on above: IG% - Immature Granu locytes (promyelocytes, myelocytes and metamyelocytes) > 1% indicates that a LEFT SHIFT is Present. MCH (RBC) [Entitic mass] 31.1 pg 27.0-32.0 [facility] Nucleated RBC/100 WBC (Bld) [Ratio] 0 % 0-5 [facility] MCHC Auto (RBC) [Mass/Vol]Or dered By: Anamika Chowdhury on 01-19-2023 MCHC (RBC) [Mass/Vol] 32.6 g/dL 32-36 [facility] No Panel InformationOrdered By: Anamika Chowdhury on 01-19-2023 Estimated GFR (MDRD) Amer 78 mL/min >60 [facility] Comment on above: GFR Calc Estimated GFR (MDRD) Non-Af Amer 64 mL/min >60 [facility] Comment on above: Non- GFR Calc Platelets bldOrdered By: Akhil Chowdhury on 01-19-2023 Platelets (Bld) [#/Vol] 224 10*3/uL 150-450 [facility] Serum or plasma albumin johanne urement (mass/volume)Ordered By: Anamika Chowdhury on 01-19-2023 Albumin [Mass/Vol] 3.6 g/dL 3.2-5.0 [facility] Serum or plasma albumin/glob ulin mass ratioOrdered By: Anamika Chowdhury on 01-19-2023 Albumin/Globulin [Mass ratio] 0.9 {ratio} 0.9-2.4 [facility] Serum or plasma calcium johanne urement (mass/volume)Ordered By: Anamika Chowdhury on 01-19-2023 Calcium [Mass/Vol] 8.8 mg/dL 8.5-10.1 [facility] Serum or plasma cholesterol in HDL measurement (mass/volume)Ordered By: Anamika Chowdhury on 01-19-2023 Cholesterol in HDL [Mass/Vol] 51 mg/dL >40 [facility] Comment on above: The drugs N-Acetylcy steine and Metamizole may falsely depress this assay. Reference Range HDL <40 mg/dL Low HDL Cholesterol HDL >or= 60 mg/dL High HDL Cholesterol Serum or plasma cholesterol in VLDL measurement (mass/volume)Ordered By: Anamika Chowdhury on 01-19-2023 Cholesterol in VLDL [Mass/Vol] 33 mg/dL 5-40 [facility] Serum or plasma creatinine m easurement (mass/volume)Ordered By: Anamika Chowdhury on 01-19-2023 Creatinine [Mass/Vol] 0.92 mg/dL 0.55-1.02 [facility] Comment on above: The validity of the calculated GFR & GFRAA in patients over 70 years has not been determined. Clinical correlation is essential. Serum or plasma low density lipoprotein (LDL) cholesterol measurement (mass/volume)Ordered By: Anamika Chowdhury on 01-19-2023 Cholesterol in LDL [Mass/Vol] 75 mg/dL 0-130 [facility] Serum or plasma urea nitroge n measurement (mass/volume)Ordered By: Anamika Chowdhury on 01-19-2023 Urea nitrogen [Mass/Vol] 20 mg/dL 7-18 [facility] Thin prep Papanicolaou smear with manual screeningOrdered By: Anamika Chowdhury on 01-19-2023 Thin prep Papanicolaou smear with manual screening 22 U/L 15-37 [facility] Thin prep Papanicolaou smear with manual screening 4 5-15 [facility] Whole blood hemoglobin A1c/t otal hemoglobin ratio (mass fraction)Ordered By: Anamika Chowdhury on 01-19-2023 HbA1c (Bld) [Mass fraction] 5.8 % 3.8-5.6 [facility] Comment on above: Normal < 5.7 % Predi abetic 5.7 - 6.4 % Diabetic >or= 6.5 % Please note range changes. DICKSON DIAG DIRECT DIG IMAGE UN Ion 04-01-2018 DICKSON DIAG DIRECT DIG IMAGE UNI [facility], [place] [address]Idiu: Warner GOMEZ: ESTUARDO ODELL III, M.D.: 51 Age: 63 Sex: FAcct: [id number] Loc: RAD MAMMExam Date: 04/01/18 Status: REG CLIRadiology No.: [id number] Number: [id number] # [id number] MAMMO / DICKSON DIAG DIRECT DIG IMAGE UNI#[id number] - [facility] DIAG DIRECT DIG IMAGE UNIUNILATERAL RIGHT DIGITAL DIAGNOSTIC MAMMOGRAM: 04/01/2018CLINICAL: Diagnostic Kncachywx-Usuaqjofpa-I T5 mm Mass 6 o'clock Posterior Depth.Comparison is made to exams dated: 09/29/2017 ultrasound and 09/22/2017 mammogram- [facility]. There are scattered fibroglandular elements inright breast.There [...] 9)The patient was notified of the results.Moises Saez/leelee: 018 11:07:42Imaging Technologist(s): RT Татьяна(R)(M), [facility]Center[facility]: 2 Benign MAMMO REPORT SIGNATURE ON FILE Reported By: MOISES WATSON M.D. << Signature on File>> Reported By: MOISES WATSON M.D. Signed By: MOISES WATSON M.D.Tests performed at:[address] [phone] Normal [facility] US BREAST LIMITEDon 09-30-19 US BREAST LIMITED [address] [address]Qtrx: Warner GOMEZ: ESTUARDO ODELL III, M.D.: [birth year] Age: 62 Sex: FAcct: [id number] Loc: RAD USExam Date: 09/29/17 Status: REG CLIRadiology No.: [id number] Number: [id number] # [id number] US / US BREAST LIMITED RT#[id number] - US BREAST LIMITEDLIMITED ULTRASOUND OF RIGHT BREAST: 09/29/2017CLINICAL: Rt breast density BCC.Comparison is made to exam dated: 09/22/2017 mammogram - [facility].Real-time ultrasound of the right breast 6 o'clock [...] has been or will be contacted.Siva Mosley/leelee:10/01/19 09:29:28copy to: Lb Rangel MD, [facility] ph:[phone], fax: [phone] Technologist(s): Maru Vann, [facility] Centerletter sent: BIRADS 3 - 6 mo Mammo Follow-upUltrasound BI-RADS: 3 Probably benign REPORT SIGNATURE ON FILE Reported By: SIVA NICOLE D.O. << Signature on File>> Reported By: SIVA NICOLE D.O. Signed By: SIVA NICOLE D.O.Tests performed at:[address] [phone] Normal [facility] HEP C Virus Abon 09-23-2017 HEP C Virus Ab <0.1 Normal 0.0-0.9 [facility] Comment on above: Result Comment: INFC E Result Units: s/co ratio Negative: < 0.8 Indeterminate: 0.8 - 0.9 Positive: > 0.9 The CDC recommends that a positive HCV antibody result be followed up with a HCV Nucleic Acid Amplification test (213412).Performed at: [email or web address] [id number] Director: Wesly Cobb PhD, Phone: [phone] Performed By: #### L 801.3865 ####[place] [address] CBCon 09-22-2017 Basophils Auto #/vol (Bld) 0.00 x10(3) Normal 0.00-0.10 [facility] Comment on above: Performed By: #### L 200.0010 ####[facility] CTS[address]ABJ[address] [place] [address] Basophils/100 WBC Auto (Bld) 0.7 % Normal 0.0-1.0 [facility] Comment on above: Performed By: #### L 200.0010 ####[address] [address] Eosinophils Auto #/vol (Bld) 0.10 x10(3) Normal 0.00-0.54 [facility] Comment on above: Performed By: #### L 200.0010 ####ML [facility] WFZVDABRJZ[address] [place] [address] Eosinophils/100 WBC Auto (Bld) 1.2 % Normal 0.5-4.9 [facility] Comment on above: Performed By: #### L 200.0010 ####[address] [address] Erythrocyte distribution width Auto Ratio (RBC) 12.1 % Low 12.5-15.7 [facility] Comment on above: Performed By: #### L 200.0010 ####[facility] Z[address]ZDNHGVS[address] [place] [address] Hematocrit Auto Volume Fraction (Bld) 43.8 % Normal 36.0-48.0 [facility] Comment on above: Performed By: #### L 200.0010 ####ML [address] [address] Hemoglobin mass conc (Bld) 15.0 g/dL Normal 12.0-16.0 [facility] Comment on above: Performed By: #### L 200.0010 ####ML [facility] NGZRUKASEY[address] [place] [address] Lymphocytes Auto #/vol (Bld) 1.60 x10(3) Normal 1.00-3.50 [facility] Comment on above: Performed By: #### L 200.0010 ####ML [address] [address] Lymphocytes/100 WBC Auto (Bld) 34.3 % Normal 16.0-48.0 [facility] Comment on above: Performed By: #### L 200.0010 ####[facility] CNYXWZGPOU[address] [place] [address] MCH Auto Entitic mass (RBC) 33.0 pg High 28.5-32.9 [facility] Comment on above: Performed By: #### L 200.0010 ####ML [facility] JAZXGQRSKX[address] [place] [address] MCHC Auto mass conc (RBC) 34.2 g/dL Normal 33.0-36.0 [facility] Comment on above: Performed By: #### L 200.0010 ####ML [facility] VIEUHVRSCJ[address] [place] [address] MCV Auto Entitic volume (RBC) 96.4 fL Normal 80.0-99.0 [facility] Comment on above: Performed By: #### L 200.0010 ####ML [address] [address] Monocytes Auto #/vol (Bld) 0.30 x10(3) Normal 0.30-0.80 [facility] Comment on above: Performed By: #### L 200.0010 ####ML - PZNRLBWARR159 [place] [address] Monocytes/100 WBC Auto (Bld) 7.3 % Normal 4.3-11.2 [facility] Comment on above: Performed By: #### L 200.0010 ####ML - PINXSIZRNU[address] [place] [address] Neutrophils Auto #/vol (Bld) 2.60 x10(3) Normal 1.40-6.50 [facility] Comment on above: Performed By: #### L 200.0010 ####ML - [address] [address] Neutrophils/100 WBC Auto (Bld) 56.5 % Normal 45.0-73.0 [facility] Comment on above: Performed By: #### L 200.0010 ####ML - JAZWAPGXKM[address] [place] [address] Platelet mean volume Auto Entitic volume (Bld) 8.0 fL Normal 7.5-9.5 [facility] Comment on above: Performed By: #### L 200.0010 ####ML [address] [address] Platelets Auto #/vol (Bld) 199 X10(3) Normal 150-450 [facility] Comment on above: Performed By: #### L 200.0010 ####ML [facility] QNIAZKKOEQ[address] [place] [address] RBC Auto #/vol (Bld) 4.54 x10(6) Normal 3.30-5.00 [facility] Comment on above: Performed By: #### L 200.0010 ####ML - IZLZHJHROA[address] [place] [address] WBC Auto #/vol (Bld) 4.6 x10(3) Normal 4.5-10.0 [facility] Comment on above: Performed By: #### L 200.0010 ####ML [facility] HGVGXYHXZL[address] [place] [address] [facility] A:G RATIO 1.55 Normal 1.1-2.5 [facility] Comment on above: Performed By: #### L 100.0005, L100.0040 ####ML - XMTCHPMDVJ147 [place] [address] Albumin mass conc 4.5 g/dL Normal 3.5-5.2 [facility] Comment on above: Performed By: #### L 100.0005, L100.0040 ####ML - NVHTFMRCPF232 [place] [address] ALK. PHOS 65 U/L Normal 35-105 [facility] Comment on above: Performed By: #### L 100.0005, L100.0040 ####ML - KFUFFPAUOM[address] [place] [address] ALT enzyme act/vol 23 U/L Normal 5-33 [facility] Comment on above: Performed By: #### L 100.0005, L100.0040 ####ML - HWDOHTDVYN[address] [place] [address] Anion gap 3 molar conc 17.8 mmol/L Normal 15-22 [facility] Comment on above: Performed By: #### L 100.0005, L100.0040 ####ML - FWJCJINNML[address] [place] [address] AST enzyme act/vol 17 U/L Normal 5-32 [facility] Comment on above: Performed By: #### L 100.0005, L100.0040 ####ML - FDXSZXHYDL722 [place] [address] Bilirubin Ql (U) 0.4 mg/dL Normal 0.2-1.2 [facility] Comment on above: Performed By: #### L 100.0005, L100.0040 ####ML - LTGVPOSUWY338 [place] [address] Calcium mass conc 9.4 mg/dL Normal 8.8-10.2 [facility] Comment on above: Performed By: #### L 100.0005, L100.0040 ####ML - PBEAQFHLVF173 [place] [address] Chloride molar conc 99 mmol/L Normal 98-107 [facility] Comment on above: Performed By: #### L 100.0005, L100.0040 ####ML - OCIQNUVTZH[address] [place] [address] Creatinine mass conc 0.68 mg/dL Normal 0.50-0.90 [facility] Comment on above: Performed By: #### L 100.0005, L100.0040 ####ML - [address] [address] eGFR if AFR MARIA DEL CARMEN > 60 ml/min/1.73m2 Normal [facility] Comment on above: Result Comment: eGFR >= 60 Indicates normal kidney function. * eGFR IS AN ESTIMATE * (AFR MARIA DEL CARMEN = ) (non-AFR AM = NON-) MDRD calculation used in the eGFR should not be used to dose medications. For further limitations of the eGFR please refer to the Physician Website or the National Kidney Disease Education Program website (www.nkdep.nih.gov). Performed By: #### L 100.0005, L100.0040 ####[address] [address] eGFR nonAFR Maria Del Carmen > 60 ml/Min/1.73m2 Normal [facility] Comment on above: Performed By: #### L 100.0005, L100.0040 ####ML [facility] [place] [address] Globulin Calculated mass conc (S) 2.9 g/dL Normal 1.5-4.5 [facility] Comment on above: Performed By: #### L 100.0005, L100.0040 ####ML [address] [address] Glucose mass conc 97 mg/dL Normal 82-115 [facility] Comment on above: Performed By: #### L 100.0005, L100.0040 ####ML - GLMFCWLLIN553 [place] [address] Potassium molar conc 3.8 mmol/L Normal 3.5-5.0 [facility] Comment on above: Performed By: #### L 100.0005, L100.0040 ####ML - QPUPAIOZTF668 [place] [address] Protein mass conc 7.4 g/dL Normal 6.4-8.3 [facility] Comment on above: Performed By: #### L 100.0005, L100.0040 ####ML - QGFKQKGJHB[address] [place] [address] Sodium molar conc 141 mmol/L Normal 135-145 [facility] Comment on above: Performed By: #### L 100.0005, L100.0040 ####ML - GOONTTGAPO[address] [place] [address] TCO2 28 mmol/L Normal 22-29 [facility] Comment on above: Performed By: #### L 100.0005, L100.0040 ####ML - TELHXAXZRH[address] [place] [address] Urea nitrogen mass conc 13 mg/dL Normal 8-23 [facility] Comment on above: Performed By: #### L 100.0005, L100.0040 ####ML - DEQOOHBQIQ[address] [place] [address] LIPID PANELon 09-22-2017 Cholesterol in HDL mass conc 70 mg/dL Normal [facility] Comment on above: Result Comment: Astrid onal Cholesterol Education Program (NCEP) guidelines:<40 mg/dL: Low HDL-Cholesterol(major risk factor for CHD)> or = 60 mg/dL: High HDL-Cholesterol(negative risk factor for CHD)HDL-cholesterol is affected by a number of factors,e.g., smoking, exercise, hormones, sex, and age.4th Generation Test; Results may be approximately 7% lowerthan previous values. Performed By: #### L 100.0005, L100.0040 ####ML - BJLLOMQWDB954 [place] [address] Cholesterol in LDL mass conc 83 mg/dL Normal [facility] Comment on above: Result Comment: LDL: OPTIMAL FOR PEOPLE AT VERY HIGH RISK <70 OPTIMAL <100 NEAR OPTIMAL 100-129 BORDERLINE HIGH 130-159 HIGH 160-189 VERY HIGH >=190Source: 2008 NCEP ATP III, ADA GuidelinesReviewed: August, Performed By: #### L 100.0005, L100.0040 ####ML - JCPMPYCTIG247 [place] [address] Cholesterol in LDL/Cholesterol in HDL mass ratio 1.2 Normal [facility] Comment on above: Performed By: #### L 100.0005, L100.0040 ####ML - LCYMFUTLOE[address] [place] [address] Cholesterol in VLDL mass conc 17 mg/dL Normal 6-40 [facility] Comment on above: Performed By: #### L 100.0005, L100.0040 ####ML - QRXJYCIOVR[address] [place] [address] Cholesterol mass conc 170 mg/dL Normal 130-200 [facility] Comment on above: Performed By: #### L 100.0005, L100.0040 ####ML - KQKJPWSHZI045 [place] [address] Triglyceride mass conc 87 mg/dL Normal [facility] Comment on above: Result Comment: TRIG : DESIRABLE: <150 mg/dL Performed By: #### L 100.0005, L100.0040 ####ML - KQHCLOPIYB[address] [place] [address] SCREEN DIGITAL BREAST TOMOon 09-22-2017 SCREEN DIGITAL BREAST JIMENA [address] [address]Wwub: Warner GOMEZ: ESTUARDO ODELL III, M.D.: [birth year] Age: 62 Sex: FAcct: [id number] Loc: RAD MAMMExam Date: 09/22/17 Status: REG CLIRadiology No.: [id number] Number: [id number] # [id number] MAMMO / SCREEN DIGITAL BREAST JIMENA#[id number] - SCREEN DIGITAL BREAST TOMOBILATERAL DIGITAL SCREENING MAMMOGRAM 3D/2D WITH CAD: 09/22/2017CLINICAL: Annual Screening.Comparison is made to exam dated: 09/21/2016 mammogram - [facility]. There are scattered fibroglandular elements in [...] will be contacted.Lito Adam M.D.ab/:09/22/2017 13:30:56Imaging Technologist(s): RT Jake(Chandni)(M), [facility] Center[facility] sent: BIRADS 0 - AbnormalBI-RADS: 0 REPORT SIGNATURE ON FILE Reported By: LITO ADAM M.D. << Signature on File>> Reported By: LITO ADAM M.D. Signed By: LITO ADAM M.D.Tests performed at:[address] [phone] Normal [facility] PAP(Lb),rflx Hion 08-03-2017 DIAGNOSIS Normal [facility] Comment on above: Order Comment: Nu gaston Comment: [id number] Comment: No. of containers..01 ThinPrep Vial Result Comment: NEGA TIVE FOR INTRAEPITHELIAL LESION AND MALIGNANCY. Performed By: #### L 801.4000 ####[place] [address] Note Normal [facility] Comment on above: Order Comment: Nu gaston Comment: [id number] Comment: No. of containers..01 ThinPrep Vial Result Comment: The Pap smear is a screening test designed to aid in thedetection of premalignant and malignant conditions of theuterine cervix. It is not a diagnostic procedure andshould not be used as the sole means of detecting cervicalcancer. Both false-positive and false-negative reports dooccur. Performed By: #### L 801.4000 ####[place] [address] [facility] Comment on above: Order Comment: Speci men Comment: [id number] Comment: No. of containers..01 ThinPrep Vial Result Comment: Milagros Zheng, Department Sales Manager (ASCP) Performed By: #### L 801.4000 ####[place] [address] [facility] Comment on above: Order Comment: Speci men Comment: [id number] Comment: No. of containers..01 ThinPrep Vial Result Comment: Sati sfactory for evaluation. Endocervical and/or squamous metaplasticcells (endocervical component) are present. Performed By: #### L 801.4000 ####[place] [address] Test Ordered Pap(Lb), rflx HPV Hi Normal [facility] Comment on above: Order Comment: Speci men Comment: [id number] Comment: No. of containers..01 ThinPrep Vial Performed By: #### L 801.4000 ####[place] [address] . . [place] . [facility] Comment on above: Order Comment: Speci men Comment: [id number] Comment: No. of containers..01 ThinPrep Vial Performed By: #### L 801.4000 ####[place] [address] [address] [facility] Comment on above: Order Comment: Speci men Comment: [id number] Comment: No. of containers..01 ThinPrep Vial Result Comment: The HPV DNA reflex criteria were not met with this specimenresult therefore, no HPV testing was performed.Performed at: [address] [id number] Director: Kyung Mathews MD, Phone: [phone] Performed By: #### L 801.4000 ####[place] [address] SURGICAL 03-05-2017 SURGICAL Cecum - CECAL POLYP [id number] DESCRIPTION: Labeled cecal polyp X2. Received in [...] Signed* FERNANDA VANN M.D. 03/09/17 1617 ---- [facility] Comment on above: Performed By: #### P -S ####ML - [facility] AZAQCUTADX[address] [place] [address] SURGICAL PATHOLOGY, CONVERTE Don 11-14-2014 [facility] SURGICAL PATHOLOGY, CONVERTE Don 09-18-2010 [facility] CYTOLOGY TAX SPECIALIST, CONVERTEDon [facility] CYTOLOGY TAX SPECIALIST, CONVERTEDon [facility] CYTOLOGY TAX SPECIALIST, CONVERTEDon [facility] Vital Signs Date Time Vital Sign Value Performing Clinician Nicole cristobal 08-08-2023 12:28-0400 Body temperature 97.2 [degF] [facility] 08-08-2023 12:28-0400 Diastolic blood pressure 66 mm[Hg] [facility] 08-08-2023 12:28-0400 Heart rate 87 /min [facility] 08-08-2023 12:28-0400 Respiratory rate 16 /min [facility] 08-08-2023 12:28-0400 SaO2% (BldA) [Mass fraction] 99 % [facility] 08-08-2023 12:28-0400 Systolic blood pressure 133 mm[Hg] [facility] 08-08-2023 10:10-0400 Body height 165.1 cm [facility] 08-08-2023 10:10-0400 Body mass index (BMI) [Ratio] 37 kg/m2 [facility] 08-08-2023 10:10-0400 Body weight 100.92 kg [facility] 10-29-2021 17:49-0400 Body height 165.1 cm [facility] Work Phone: 10-29-2021 17:49-0400 Body mass index (BMI) [Ratio] 33 kg/m2 [facility] Work Phone: 10-29-2021 17:49-0400 Body temperature 98.2 [degF] [facility] Work Phone: 10-29-2021 17:49-0400 Body weight 90 kg [facility] Work Phone: 10-29-2021 17:49-0400 Diastolic blood pressure 75 mm[Hg] [facility] Work Phone: 10-29-2021 17:49-0400 Heart rate 70 /min [facility] Work Phone: 10-29-2021 17:49-0400 Respiratory rate 16 /min [facility] Work Phone: 10-29-2021 17:49-0400 SaO2% (BldA) [Mass fraction] 97 % [facility] Work Phone: 10-29-2021 17:49-0400 Systolic blood pressure 156 mm[Hg] [facility] Work Phone: Encounters Encounter Date Encounter Type Care Provider Facility Start: 01-19-2025 End: 01-19-[address] Anamika Chowdhury MD Work Phone: -Laboratory Start: 01-19-2025 End: 01-19-[address] Anamika Chowdhury MD -Laboratory Work Phone: Start: 01-19-2025 End: 01-19-2025 ambulatory Anamika Chowdhury Facility:[facility] Start: 10-24-2024 End: 10-24-[address] Anamika Chowdhury MD Work Phone: [facility] Work Phone: Start: 10-24-2024 End: 10-24-[address] Anamika Chowdhury MD -Outpatient Breast Imaging Work Phone: Start: 10-24-2024 End: 10-24-2024 ambulatory Anamika Chowdhury Facility:[facility] Start: 07-27-2024 End: 07-27-2024 Refill Lito Mckeon PA-C Work Phone: Neurology Comment on above: Refill Request Start: 02-04-2024 End: 02-04-2024 [facility] Start: 08-08-2023 End: 08-08-2023 Emergency department patient visit [facility]-Emergency Department Work Phone: Start: 06-07-2023 End: 06-07-2023 ambulatory LITO KAILA Facility:[facility] Start: 01-19-2023 End: 01-19-2023 ambulatory [facility] Work Phone: Start: 01-19-2023 End: 01-19-2023 Patient encounter procedure [facility]-Laboratory Work Phone: Start: 10-19-2022 End: 10-19-2022 ambulatory [facility] Work Phone: Start: 10-19-2022 End: 10-19-2022 Patient encounter procedure [facility]-Outpatient Breast Imaging Start: 04-02-2022 Refill James floyd MD Work Phone: Neurology Comment on above: Refill Request Start: 10-29-2021 End: 10-29-2021 Emergency department patient visit [facility]-Emergency Department Start: 10-15-2021 End: 10-15-2021 Patient encounter procedure [facility]-Outpatient Breast Imaging Start: 10-01-2021 End: 10-01-2021 ambulatory Luisana Josué Lucia DERASBRAKE SHOE REBUILDER Work Phone: Neurology Comment on above: Focal epilepsy (HCC) (Primary Dx) Start: 10-01-2021 End: 10-01-2021 Telemedicine consultation with patient Luisana Myers YOSELIN.BRAKE SHOE REBUILDER Work Phone: [facility] Start: 04-01-2018 Patient encounter procedure ESTUARDO ODELL Facility:[facility] Start: 09-29-2017 Patient encounter procedure ESTUARDO ODELL Facility:[facility] Start: 09-22-2017 Patient encounter procedure ESTUARDO ODELL Facility:[facility] Start: 07-29-2017 Ambulatory ESTUARDO ODELL Facil ity:[facility] Start: 03-05-2017 Ambulatory HUA DALE Facility :[facility] Start: 11-15-2014 Documentation procedure Hua Dale MD Work Phone: [facility] Start: 11-15-2014 Historic EMR Hua mcdonnell MD Work Phone: [facility] Start: 09-18-2010 Documentation procedure Jorgesafia noland [facility] Start: 09-18-2010 Historic EMR Jorgesafia Feldman [facility] Start: 05-29-2008 Documentation procedure Estuardo Odell III, MD Work Phone: [facility] Start: 05-29-2008 Historic EMR Estuardo Odell MD Work Phone: [facility] Start: 05-27-2007 Documentation procedure Estuardo Odell III, MD Work Phone: [facility] Start: 05-27-2007 Historic EMR Estuardo Odell MD Work Phone: [facility] Start: 05-11-2005 Documentation procedure Estuardo Odell III, MD Work Phone: [facility] Start: 05-11-2005 Historic EMR Estuardo Odell MD Work Phone: [facility] Procedures Date Procedure Procedure Detail Performing Clinician Start: 10-24-2024 Screening mammography Silvana Chowdhury MD Work Phone: Start: 08-08-2023 Plain X-ray of shoulder Start: 10-19-2022 Screening mammography Start: 10-29-2021 Plain x-ray of hand Start: 10-29-2021 Plain x-ray of wrist Start: 10-29-2021 X-ray of radius and ulna Start: 10-29-2021 Plain x-ray of elbow Start: 10-15-2021 Screening mammography Start: 09-22-2017 Lipid 1996 panel - S maddi or Plasma Estuardo Odell III, MD Work Phone: Start: 09-22-2017 Mammography Luisana Myers APRN.BRAKE SHOE REBUILDER Work Phone: Start: 01-19-2017 H/O: surgery S/P lobectomy of brain Luisana Myers APRN.BRAKE SHOE REBUILDER Work Phone: Start: 11-14-2014 SURGICAL PATHOLOGY, CONVERTED Hua Dale MD Work Phone: Start: 09-18-2010 SURGICAL PATHOLOGY, CONVERTED Favian Feldman Start: 05-28-2008 CYTOLOGY TAX SPECIALIST, CONVERTED Estuardo Odell MD Work Phone: Start: 05-25-2007 CYTOLOGY TAX SPECIALIST, CONVERTED Estuardo Odell MD Work Phone: Start: 05-07-2005 CYTOLOGY TAX SPECIALIST, CONVERTED Estuardo Odell MD Work Phone: Plan of Treatment Date Care Activity Detail Author Start: 01-15-2028 RSV Vaccine (1 - 1-dose 75+ series) RSV Vaccine (1 - 1-dose 75+ series) [facility] Start: 05-17-2024 Advance Directive Discussion Advance Directive Discussion [facility] Start: 01-16-2024 Covid-19 Vaccine ( season) Covid-19 Vaccine () [facility] Start: 01-16-2024 Influenza vaccination Influenza Vaccine (#1) [facility] Start: 01-15-2023 Influenza vaccination Influenza Vaccine (#1) [facility] Start: 09-22-2022 Lipid 1996 panel - Serum or Plasma Lipid Screening [facility] Start: 09-22-2022 Lipid panel Lipid Screening [facility] Start: 09-22-2022 LIPID SCREEN LIPID SCREEN [facility] Start: 05-17-2022 Advance Directive Discussion Advance Directive Discussion [facility] Start: 01-15-2022 Influenza vaccination [facility] Start: 05-17-2021 ADVANCE DIRECTIVE DISCUSSION ADVANCE DIRECTIVE DISCUSSION [facility] Start: 09-22-2020 DIABETES SCREEN DIABETES SCREEN [facility] Start: 09-22-2020 Diabetes Screening Diabetes Screening [facility] Start: 04-22-2019 Pneumococcal Vaccine: 50+ (2 of 2 - PCV) Pneumococcal Vaccine: 50+ (2 of 2 - PCV) [facility] Start: 09-22-2018 Mammography [facility] Start: 09-22-2018 Screening for malignant neoplasm of breast Mammogram Screening [facility] Start: 2018 BONE DENSITY BONE DENSITY [facility] Start: 2018 Bone Density Screening Bone Density Screening [facility] Start: 2018 Pneumococcal Vaccine: 65+ (1 - PCV) Pneumococcal Vaccine: 65+ (1 - PCV) [facility] Start: 2018 PNEUMOCOCCAL: 65+ (1 - PCV) PNEUMOCOCCAL: 65+ (1 - PCV) [facility] Start: 2018 PNEUMOVAX AGE 65 AND OVER WITH 5YR LOOKBACK (#1) PNEUMOVAX AGE 65 AND OVER WITH 5YR LOOKBACK (#1) [facility] Start: 2018 Screening for osteoporosis Bone Density Screening [facility] Start: 2003 SHINGRIX VACCINE (1 of 2) SHINGRIX VACCINE (1 of 2) [facility] Start: 1998 COLOGUARD (FIT-DNA) COLOGUARD (FIT-DNA) [facility] Start: 1998 Colonoscopy COLONOSCOPY [facility] Start: 1998 COLORECTAL CANCER SCREENING COLORECTAL CANCER SCREENING [facility] Start: [address] COLONOGRAPHY [facility] Start: 1998 FECAL OCCULT BLOOD FECAL OCCULT BLOOD [facility] Start: 1998 Screening for malignant neoplasm of colon [facility] Start: 1998 SIGMOIDOSCOPY SIGMOIDOSCOPY [facility] Start: 01-15-1972 Urine microalbumin profile [facility] Start: 1971 ANNUAL PCP TEAM CHRONIC DISEASE VISIT ANNUAL PCP TEAM CHRONIC DISEASE VISIT [facility] Start: 1971 BP CONTROLLED (<130/80) BP CONTROLLED (<130/80) [facility] Start: 1958 COVID-19 VACCINE (#1) COVID-19 VACCINE (#1) [facility] Start: 1953 COVID-19 VACCINE (#1) COVID-19 VACCINE (#1) [facility] Patient Education [facility] Work Phone: Patient referral [facility] Work Phone: Immunizations Immunization Date Immunization Notes Care Provider Татьяна correa 02-20-2009 influenza virus vacc ine, unspecified formulation Estuardo Odell III, MD Work Phone: [facility] Payers Date Payer Category Payer Self-pay [id number] 2015 Medicare [id number] 2015 Medicare (Managed Care) [employer] JAMES HMO [id number] 2015 Unknown ANTHEM BLUE CROS S AND BLUE SHIELD ANTHEM MEDIBLUE HMO [id number] 2015-Present [phone] [address] [place] [address] HMO [id number] Medicare [id number] Unknown [id number] Unknown [id number] Unknown [id number] Unknown [id number] Unknown [id number] Unknown [id number] Social History Date Type Detail Facility Start: 12-22-2010 End: 08-08-2023 Tobacco smoking status NEIS Never smoked tobacco [facility] Start: 12-22-2010 Tobacco use and exposure Smokeless tobacco non-user [facility] Start: 08-08-2012 End: 02-15-2020 Alcohol intake Current non-drinker of alcohol (finding) [facility] Start: 1955 Sex Assigned At Not on file [facility] Start: 02-18-2021 End: 08-08-2023 Tobacco smoking status NEIS Unknown if ever smoked [facility] Start: 1955 Sex Assigned At Female W [facility] Start: 02-15-2020 End: 06-07-2023 History of Social function [facility] Start: 02-15-2020 End: 06-07-2023 Tobacco use panel [facility] Adult Depression Screening Assessment 0 [facility] Start: 01-16-2020 End: 02-15-2020 Exposure to SARS-CoV-2 (event) Not sure [facility] Medical Equipment Procedure Code Equipment Code Equipment Original Text Equipment Identifier Dates Patch Duramatrix Collagen Matrix 3x3in Dural Conformable Resorbable - [id number] Start: 07-27-2016 Plate Low Profil e Titanium 12mm Bone 2 Hole Bar 1.5mm Screw Nonsterile - [id number] Start: 07-27-2016 Screw 1.5mm 4mm Bone Self Drill Cross Pin Craniomaxillofacial - [id number] Start: 07-27-2016 Functional Status Date Assessment Result Facility 07-31-2016 Are you deaf, or do you have serious difficulty hearing No 07/31/2016 12:22 PM Angeline Betancourt, MADONNA No [facility] Work Phone: 07-31-2016 Are you blind, or do you have serious difficulty seeing, even when wearing glasses No 07/31/2016 12:22 PM Angeline Betancourt, MADONNA No [facility] 07-31-2016 Do you have serious difficulty walking or climbing stairs No 07/31/2016 12:22 PM Angeline Betancourt, MADONNA No [facility] 07-31-2016 Do you have difficul ty dressing or bathing No 07/31/2016 12:22 PM Angeline Betancourt, MADONNA No [facility] 07-31-2016 Because of a physica l, mental, or emotional condition, do you have difficulty doing errands alone such as visiting a physician's office or shopping No 07/31/2016 12:22 PM Angeline Betancourt, MADONNA No [facility] Mental Status Date Assessment Result Facility 07-31-2016 Because of a physica l, mental, or emotional condition, do you have serious difficulty concentrating, remembering, or making decisions No 07/31/2016 12:22 PM Angeline Betancourt, RN No [facility] Clinical Notes 07-27-2016 to 07-27-2024 Telephone Encounter - Harpreet Garay APRN.ADY - 07/27/2024 4:49 PM EDTTelephone Encounter - Harpreet Garay APRN.CNP - 07/27/2024 4:49 PM EDTLuisana Myers APRN.CNP - 10/01/2021 2:57 PM EDT Note Date & Type Note Facility 07-27-2024 Telephone encount er Note The following approved medication requests have been transmitted electronically. Requested Prescriptions Signed Prescriptions Disp Refills citalopram hydrobromide (CELEXA) 10 mg tablet 90 tablet 0 Sig: TAKE 1 TABLET BY MOUTH ONCE DAILY IN THE MORNING Authorizing Provider: HARPREET GARAY APRN.CNP [facility] 07-27-2024 Miscellaneous Notes Formattin g of this note is different from the original. The following approved medication requests have been transmitted electronically. Requested Prescriptions Signed Prescriptions Disp Refills citalopram hydrobromide (CELEXA) 10 mg tablet 90 tablet 0 Sig: TAKE 1 TABLET BY MOUTH ONCE DAILY IN THE MORNING Authorizing Provider: HARPREET GRAAY APRN.CNP Prescription Refill: Requested by: pharmacy Please E-Scribe Caller Contact Number: electronic Pharmacy Name: [facility] Number: [phone] Generic/ brand: Generic 30 or 90 day supply requested: 90 Last appointment: 06/07/23 Next Appointment: None, Patient needs appointment, sent message to S51 to contact patient to schedule annual visit. Patient of Dr. Harpreet Gomez [id number] [address] [facility] [address] documented in this encounter [facility] 03-13-2025 Telephone encount er Note Prescription Refill: Requested by: pharmacy Please E-Scribe Caller Contact Number: electronic Pharmacy Name: [facility] Number: [id number] Generic/ brand: Generic 30 or 90 day supply requested: 90 Last appointment: 06/07/23 Next Appointment: None, Patient needs appointment, sent message to S51 to contact patient to schedule annual visit. Patient of Dr. Mullins Cassy Gomez [id number] [address] [facility] [address] [facility] 06-08-2023 Note HNO ID: [id number] Author: LITO MCKEON PA-C Service: ? Author Type: Physician Forming Fixer Type: Progress Notes Filed: 06/08/2023 09:12 Note Text: [facility] VIRTUAL VIS[facility] I have communicated my name and active licensure. The patient's identity and physical location were verified at the time of this visit. Either the patient or their legal footwear sales representative has been informed of the risks and benefits of -- and alternatives to -- treatment through a remote evaluation and consents to proceed with the evaluation remotely. HISTORY OF PRESENT ILLNESS: Cassy Gomez is a 68 year old RH female who is diagnosed with focal seizures, and presents today for six month virtual visit. They are an established patient of Dr. Mullins'anna and was last seen on 10/01/2021 by [...] Take 1 tablet by mouth once daily. Dp-N2-ieh-wolj-dul-lxon-boron (CALTRATE 600+D PLUS MINERALS) 600 mg calcium- [...] sleep apnea) Port - wine birthmark right caodaism Tinnitus of left ear PAST SURGICAL HISTORY [...] on medications and lifestyle. Lito Mckeon PA-C [facility] 04-02-2022 Miscellaneous Notes Formattin g of this note is different from the original. The following approved medication requests have been transmitted electronically. Requested Prescriptions Signed Prescriptions Disp Refills levETIRAcetam (KEPPRA) 750 mg tablet 360 tablet 3 Sig: Take 2 tablets by mouth twice daily. Authorizing Provider: HARPREET GARAY citalopram hydrobromide (CELEXA) 10 mg tablet 90 tablet 3 Sig: Take 1 tablet by mouth every morning. Authorizing Provider: HARPREET GARAY APRN.CNP Prescription Refill: Requested by: patient Please E-Scribe Caller Contact Number: [phone] Pharmacy Name: [facility]acy Number: [phone] Generic/ brand: Generic 30 or 90 day supply requested: 90 Last appointment: 05/23/21 Next Appointment: none scheduled Patient of Dr. Mullins documented in this encounter [facility] 10-01-2021 History of Presen t illness Narrative [facility] VIRTUAL VISIT HISTORY OF [...] Take 1 tablet by mouth once daily. Ni-X7-fnw-qpxe-nlb-gnor-boron (CALTRATE 600+D PLUS MINERALS) 600 mg calcium- [...] sleep apnea) Port - wine birthmark right caodaism Tinnitus of left ear PAST SURGICAL HISTORY [...] counseling on medications and lifestyle. 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 07/27/2016 01/19/2017 Focal epilepsy with impairment of consciousness, intractable 03/25/2016 07/01/2016 Partial epilepsy with impair ment of consciousness, intractable 07/05/2002 01/19/2017 documented as of this encounter (statuses as of 10/01/2021) [facility] History of Past illness Narrative* Problem Noted Date Resolved Date 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 07/27/2016 01/19/2017 Focal epilepsy with impairment of consciousness, intractable 03/25/2016 07/01/2016 Partial epilepsy with impair ment of consciousness, intractable 07/05/2002 01/19/2017 documented as of this encounter (statuses as of 04/02/2022) [facility] History of Past illness Narrative* Problem Noted Date Diagnosed Date Resolved Date 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 07/27/2016 01/19/2017 Focal epilepsy with impairme nt of consciousness, intractable 03/25/2016 07/01/2016 Partial epilepsy with impair ment of consciousness, intractable 07/05/2002 01/19/2017 documented as of this encounter (statuses as of 02/04/2023) [facility] History of Past illness Narrative* Problem Noted Date Diagnosed Date Resolved Date 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 07/27/2016 01/19/2017 Focal epilepsy with impairme nt of consciousness, intractable 03/25/2016 07/01/2016 Partial epilepsy with impair ment of consciousness, intractable 07/05/2002 01/19/2017 documented as of this encounter (statuses as of 02/05/2023) [facility] Author Robert Chacon [facility] August 08, 2023 12:19pm Note Date/Time August 08, 2023 11: 17am [facility] Medical Records Department [address] [place] [address] Emergency Department Summary 08/08/23 MR#: [id number] Acct: [id number] Name: CASSY GOMEZ Rep #:[id number] 8 : 1955 68 From: Robert Chacon [...] lazy boy chair due to the pain. [facility] Medical History Anxiety Fall GERD (gastroesophageal reflux [...] mg-vit E 90 mg-zinc 40 mg-copper 1 rq-slcjid-xtqltd capsule 1 ea PO BID eyes 02/19/20 [...] as calcific tendinitis. Patient will be given Sorento for pain at home. She will be [...] EACH tablet 1 ea PO DAILY vit C,B-Rr-gyfmr-lutein-zeaxan 1 EACH capsule 1 ea PO BID [...] your Primary Care Provider. Call [facility] ([phone]) or report to the closest Emergency Room. Call 911 if necessary. 08/08/23 1219 <Electronically signed by Robert Chacon DO> Cosigner Signature (if applicable): CC: Dr. Anamika Chowdhury MD ~ Signed [facility] Work Phone: Evaluation note* Diagnosis Focal epilepsy (HCC)- Primary Localization-related (focal) (partial) epilepsy and epileptic syndromes with simple partial seizures, without mention of intractable epilepsy [facility] noteNo assessment information availableWMercy [facility] St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 (narrative)No reason for referral information availableWMercy Health St. 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 Advance Directive(s) 07/21/2016 9:17 AM Advance Directive(s) 07/21/2016 12:24 PM Advance Directive(s) 07/21/2016 12:25 PM Advance Directive(s) 03/25/2016 8:13 PM Advance Directive Response Recorded Date/ Time Living Will No November 18, 2020 1 2:18pm Power of Answering Service Operator No November 18, 2020 12:18pm Advance Directive Response Recorded Date/ Time Living Will No October 29, 2021 7:29pm Power of Answering Service Operator No October 29 7:29pm Documents on File Type Date Recorded 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 Chief Complaint Admit Date SCREENING October 24, 2024 5:00 pm Additional Source Comments INFORMATION SOURCE (unrecogn ized section and content) DATE CREATED AUTHOR 11/04/2017 [facility] DATE CREATED AUTHOR AUTHOR'S ORGANIZ ATION 04/25/2018 [facility] DATE CREATED AUTHOR AUTHOR'S ORGANIZ ATION 06/08/2023 [facility] DATE CREATED AUTHOR AUTHOR'S ORGANIZ ATION 01/28/2025 [facility] Source Comments (unrecognize d section and content) In the event this informatio n is protected by the Federal Confidentiality of Alcohol and Drug Abuse Patient Records regulations: The Federal rules restrict any use of the information to criminally investigate or prosecute any alcohol or drug abuse patient.[facility] the event this information is protected by the Federal Confidentiality of Alcohol and Drug Abuse Patient Records regulations: The Federal rules restrict any use of the information to criminally investigate or prosecute any alcohol or drug abuse patient.[facility] CenterIn the event this information is protected by the Federal Confidentiality of Alcohol and Drug Abuse Patient Records regulations: The Federal rules restrict any use of the information to criminally investigate or prosecute any alcohol or drug abuse patient.[facility] CenterIn the event this information is protected by the Federal Confidentiality of Alcohol and Drug Abuse Patient Records regulations: The Federal rules restrict any use of the information to criminally investigate or prosecute any alcohol or drug abuse patient.[facility] CenterIn the event this information is protected by the Federal Confidentiality of Alcohol and Drug Abuse Patient Records regulations: The Federal rules restrict any use of the information to criminally investigate or prosecute any alcohol or drug abuse patient.[facility] CenterIn the event this information is protected by the Federal Confidentiality of Alcohol and Drug Abuse Patient Records regulations: The Federal rules restrict any use of the information to criminally investigate or prosecute any alcohol or drug abuse patient.[facility] CenterIn the event this information is protected by the Federal Confidentiality of Alcohol and Drug Abuse Patient Records regulations: The Federal rules restrict any use of the information to criminally investigate or prosecute any alcohol or drug abuse patient.[facility] CenterIn the event this information is protected by the Federal Confidentiality of Alcohol and Drug Abuse Patient Records regulations: The Federal rules restrict any use of the information to criminally investigate or prosecute any alcohol or drug abuse patient.[facility] Reason for Visit (unrecogniz ed section and content) Reason Comments Follow Up Refill Request Reason Onset Date Comments Refill Request 04/02/2022 Reason Comments Refill Request Care Teams (unrecognized sec tion and content) Environmental Economist Relationship Specialty Start Date End Date Lb Rangel MD [facility] [employer] [address] PCP - General Internal Medicine 10/26/11 Dominique Yoder MD Attending Neurology 10/26/11 Environmental Economist Relationship Specialty Start Date End Date Lb Rangel MD [facility] [employer] [address] [address] PCP - General Internal Medicine 10/26/11 Dominique Yoder DO Attending Neurology 10/26/11 Team Status: Active Member Role Status Dates Dr. Anamika Chowdhury MD Family Provider Active Dr. Anamika Chowdhury MD Primary Care Provider Active Team Status: Inactive Member Role Status Dates Dr. Anamika Chowdhury MD Primary Care Prov ider, Attending Provider, Referring Provider Active Environmental Economist Relationship Specialty Start Date End Date José Miguel Vang [address] [place] [address] PCP - General 09/01/00 10/25/11 Lb Rangel MD [address] [place] [address], [address] [address] PCP - General Internal Medicine 10/26/11 Dominique Yoder DO [address], [place] [address] [place] [address] Attending Neurology 10/26/11 Environmental Economist Relationship Specialty Start Date End Date Lb Rangel MD [address], [place] [address] [place] [id number] PCP - General Internal Medicine 10/26/11 Dominique Yoder DO [address], [place] [address] [place] [id number] Attending Neurology 10/26/11 Team Status: Inactive Member Role Status Dates Dr. Anamika Chowdhury MD Primary Care Provider Active Dr. Robert Chacon DO Emergency Provider Active Environmental Economist Relationship Specialty Start Date End Date Lb Rangel MD [address], [place] [address] [place] [phone] PCP - General Internal Medicine 10/26/11 Dominique Yoder DO [address], [place] [address] [place] [address] Attending Neurology 10/26/11 Team Status: Active Member Role Status Dates Dr. Anamika Chowdhury MD Primary Care Provider Active Team Status: Inactive Member Role Status Dates Dr. Anamika Chowdhury MD Primary Care Provider Active Start: October 24, 2024 End: October 24, 2024 Dr. Anamika Chowdhury MD Attending Provider Active Start: October 24, 2024 End: October 24, 2024 Dr. Anamika Chowdhury MD Referring Provider Active Start: October 24, 2024 End: October 24, 2024 Team Status: Active Member Role/Relationship Status Dates Dr. Anamika Chowdhury MD Primary Care Provider Active Team Status: Inactive Member Role/Relationship Status Dates Dr. Anamika Chowdhury MD Primary Care Provider Active Start: October 24, 2024 End: October 24, 2024 Dr. Anamika Chowdhury MD Attending Provider Active Start: October 24, 2024 End: October 24, 2024 Dr. Anamika Chowdhury MD Referring Provider Active Start: October 24, 2024 End: October 24, 2024 Team Status: Inactive Member Role/Relationship Status Dates Dr. Anamika Chowdhury MD Primary Care Provider Active Start: January 19, 2025 End: January 19, 2025 Dr. Anamika Chowdhury MD Attending Provider Active Start: January 19, 2025 End: January 19, 2025 Dr. Anamika Chowdhury MD Referring Provider Active Start: January 19, 2025 End: January 19, 2025 Goals (unrecognized section and content) Goals may [...] BE BASED ON THE PRIMARY CLINICAL RECORDS. [facility] [employer] [facility]. provides no warranty or guarantee of the accuracy or completeness of information in this document.
== END | disposition home or self-care (01) ==
PROVIDERS: PCP Family Medicine
DX: S46.011A Strain of muscle(s) and tendon(s) of the rotator cuff of right shoulder, initial encounter (principal); X58.XXXA Exposure to other specified factors, initial encounter
CPT/HCPCS: 73200